=== PATIENT | female | born 1945 | race Caucasian/White ===

== ENCOUNTER → 2016-04-12 | Outpatient (CLI) | payer BC ==
[~2016-04-12] MED LIST: ATOR-26 PO; BALS1CAP2 PO; BUPR-267 PO; CALCTAB5 PO; CHOL100010 PO; CYAN100020 PO; HYDR25TA4 PO; LEVO75TA5 PO; LISI20TA3 PO; LISI40TA PO; METF1000 PO; METO25TA3 PO; MULT-506 PO; POTA10TA PO; VITACAP37 PO
[2016-04-12 17:29] LABS: BASO % 0.3 %; BASO ABS # 0.04 K/uL (0-0.2); COMPLETE YES; HEMATOCRIT 39.2 % (37-47); IG% 0.3 %; LYMPH % 22.7 %; LYMPH ABS # 2.93 K/uL (1.2-3.4); MEAN CELL VOLUME 88.3 fL (80-100); MEAN CORPUSCULAR HEMOGLOBIN 29.1 pg (25-34); MEAN CORPUSCULAR HGB CONC 32.9 g/dl (32-36); MEAN PLATELET VOLUME 10.6 fL (7.4-10.4); MONO % 5.4 %; NEUT % 70.3 %; PLATELET COUNT 340 K/uL (130-400); RED BLOOD COUNT 4.44 M/uL (4.2-5.4); WHITE BLOOD COUNT 12.89 K/uL (4.8-10.8)
[2016-04-12 18:01] LABS: ALT/SGPT 22 U/L (12-78); BLOOD UREA NITROGEN 12 mg/dl (7-18); CARBON DIOXIDE 29 mmol/L (21-32); CHLORIDE 100 mmol/L (98-107); CREATININE 0.71 mg/dl (0.60-1.20); GLUCOSE 140 mg/dl (70-99); POTASSIUM 3.3 mmol/L (3.5-5.1); SODIUM 140 mmol/L (136-145)
[2016-04-12 18:11] LABS: ALB/GLOB RATIO 0.9 (0.9-2); ALKALINE PHOSPHATASE 59 U/L (45-117); AST/SGOT 17 U/L (15-37)
[2016-04-13 06:11] LABS: ESTIMATED AVERAGE GLUCOSE 160 mg/dl; HA1C FLAG Normal (Normal)
--- NOTE | 2016-04-16 10:45 | CODING QUERY MEDICAL NECESSITY ---
SUPPORTING DIAGNOSIS NEEDED A supporting diagnosis is required for the test/procedure performed on this patient in order for us to be reimbursed by the patient's insurance. Please provide a supporting diagnosis for the following test/procedure listed below next to the test name along with your signature. *If there is no additional diagnosis for this patient that would support the following test/procedure please document that below next to the test/procedure. Test(s)/Procedure(s) that require a supporting diagnosis: DOS 04/12 * Hba1c DIAGNOSIS: Provider Signature: Date: Thank you Vera Larson Health Information Management Once completed, please kindly fax back to [phone] For questions please call [phone]
== END | disposition home or self-care (01) ==
LOC: C.LABBFT 12:50
PROVIDERS: ATTEND Internal Medicine
DX: E78.5 Hyperlipidemia, unspecified (principal); E11.9 Type 2 diabetes mellitus without complications

== ENCOUNTER → 2016-06-22 | Day surgery (SDC) | payer BC ==
[2016-06-08 11:14] VITALS: BMI 22.0
[~2016-06-22] VITALS: Ht 149.9 cm; Wt 50.0 kg
[~2016-06-22] MED LIST changes: +LIDOCAINE HCL 2% 2 ML VIAL (20MG/ML) ONE; -LISI40TA PO; +MIDAZOLAM HCL 1 MG/ML 2ML VIAL ONE; +ONDANSETRON INJ 2 MG/ML 2 ML VIAL ONE; +PROPOFOL IV EMULSION 10 MG/ML 20 ML VIAL IV ONE; +SODIUM CHLORIDE 0.9% 500ML 500 ML IV ONE
[2016-06-22 08:28] VITALS: Ht 149.9 cm; Wt 50.0 kg
--- NOTE | 2016-06-22 08:43 | Endo History and Physical ---
History & Physical Date of Service: Jun 22, 2016. Chief Complaint: Crohn's Disease Referring Physician: Dr. Cohn History of Present Illness 70 yo CF who presents for colonoscopy secondary to Crohn's Disease. Past Surgical History Hx Cardiac Surgery: No Hx Internal Defibrillator: No Hx Pacemaker: No Hx Abdominal Surgery: Yes (TUBAL LIGATION) Hx of Implantable Prosthesis: No Hx Post-Op Nausea and Vomiting: No Hx Cancer Surgery: No Hx Thoracic Surgery: No Hx Orthopedic: No Hx Urinary Tract Surgery: No Family History None Social History Smoking Status: Never Smoker Hx Substance Use: No Hx Alcohol Use: No Allergies Coded Allergies: No Known Allergies (Unverified , 06/22/16) Current Medications Reported Home Medications Medications Dose Route/Sig Max Daily Dose Days Date Category Vitamin D (Cholecalciferol) 1,000 Unit Tab 1 Tab PO QAM 06/08/16 Reported Vitamin B12 (Cyanocobalamin) 1,000 Mcg Tab 1 Tab PO QAM 06/08/16 Reported E-400 (Vitamin E) 400 Unit Cap 1 Cap PO QAM 06/08/16 Reported Multivitamin (Multivitamins) Tab 1 Tab PO QAM 06/08/16 Reported Toprol-Xl (Metoprolol Succinate) 25 Mg Tabcr 25 Mg PO QAM 06/08/16 Reported Levothyroxine Sodium 75 Mcg Tab 1 Tab PO QAM 90 06/08/16 Reported Prinivil (Lisinopril) 20 Mg Tab 40 Mg PO QAM 06/08/16 Reported K-Tabs (Potassium Chloride) 10 Meq Tab 1 Tab PO TID 06/08/16 Reported Hctz (Hydrochlorothiazide) 25 Mg Tab 25 Mg PO QAM 06/08/16 Reported Caltrate (Calcium) 600 Mg Tab 600 Mg PO BID 05/24/15 Reported Bupropion Hcl Er (Bupropion Hcl) 150 Mg Tab 150 Mg PO BID 11/04/12 Reported Glucophage (Metformin Hcl) 1,000 Mg Tab 1,000 Mg PO BID 11/04/12 Reported Colazal (Balsalazide Disodium) 750 Mg Cap 3 Cap PO TID 11/04/12 Reported Lipitor (Atorvastatin Calcium) 80 Mg Tab 80 Mg PO QAM 11/04/12 Reported Vital Signs Weight (Kilograms): 50.00 Height (Feet): 4 Height (Inches): 11 Physical Exam General Appearance: WD/WN, no apparent distress Respiratory/Chest: Auscultation: breath sounds normal Cardiovascular: Heart Auscultation: RRR Abdomen: Bowel Sounds: normal Inspection & Palpation: soft, non-distended, no tenderness, guarding & rebound Assessment and Plan Assessment: 70 yo CF who presents for colonoscopy secondary to Crohn's Disease. Plan: Proceed with colonoscopy.
--- NOTE | 2016-06-22 09:24 | GI REPORT ---
Procedure Date: 06/22/2016 8:52 AM Procedure: Colonoscopy Indications: Disease activity assessment of Crohn's disease of the colon Medicines: Monitored Anesthesia Care Complications: No immediate complications. Estimated Blood Loss: Estimated blood loss: none. Procedure: Pre-Anesthesia Assessment: - Prior to the procedure, a History and Physical was performed, and patient medications and allergies were reviewed. The patient's tolerance of previous anesthesia was also reviewed. The risks and benefits of the procedure and the sedation options and risks were discussed with the patient. All questions were answered, and informed consent was obtained. Prior Anticoagulants: The patient has taken no previous anticoagulant or antiplatelet agents. ASA Grade Assessment: II - A patient with mild systemic disease. After reviewing the risks and benefits, the patient was deemed in satisfactory condition to undergo the procedure. After I obtained informed consent, the scope was passed under direct vision. Throughout the procedure, the patient's blood pressure, pulse, and oxygen saturations were monitored continuously. The scope was introduced through the anus and advanced to the terminal ileum. The colonoscopy was performed without difficulty. The patient tolerated the procedure well. The quality of the bowel preparation was good. The terminal ileum, ileocecal valve, appendiceal orifice, and rectum were photographed. Findings: The terminal ileum appeared normal. Inflammation characterized by aphthous ulcerations was found in small patches surrounded by normal mucosa 10 cm apart. This was mild in severity. Biopsies were taken with a cold forceps for histology. Non-bleeding internal hemorrhoids were found during retroflexion. The hemorrhoids were small. Impression: - The examined portion of the ileum was normal. - Inflammation was found in the colon 10 cm apart secondary to Crohn's disease with colonic involvement. Biopsied. - Non-bleeding internal hemorrhoids. Recommendation: - Resume previous diet. - Continue present medications. - Repeat colonoscopy date to be determined after pending pathology results are reviewed for surveillance based on pathology results. - Return to GI clinic as previously scheduled. Alexander Sales DO 06/22/2016 9:24:10 AM This report has been signed electronically. Note Initiated On: 06/22/2016 8:52 AM I attest to the content of the Intraoperative Record and orders documented therein, exceptions below
[2016-06-22 09:51] VITALS: BP 170/87; PULSE 67; O2SAT 97
--- NOTE | 2016-06-22 09:56 | Anesthesiology Progress Note ---
Anesthesia Post Op Note Date & Time Jun 22, 2016 at 09:55 Vital Signs Pain Intensity: 0 Vital Signs Past 12 Hours Date Time Temp Pulse Resp B/P Pulse Ox O2 Delivery O2 Flow Rate FiO2 06/22/16 09:51 67 18 170/87 97 Room Air 06/22/16 09:36 68 18 137/70 96 Room Air 06/22/16 09:22 63 16 112/53 97 Room Air 06/22/16 08:51 36.6 70 20 185/98 98 Room Air Notes Mental Status: alert / awake / arousable, participated in evaluation Pt Amnestic to Procedure: Yes Nausea / Vomiting: adequately controlled Pain: adequately controlled Airway Patency, RR, SpO2: stable & adequate BP & HR: stable & adequate Hydration State: stable & adequate Anesthetic Complications: no major complications apparent
--- NOTE | 2016-06-22 10:01 | Discharge Instructions ---
Endoscopy Patient Instructions Date / Procedure(s) Performed Jun 22, 2016. Colonoscopy Allergy Information Coded Allergies: No Known Allergies (Unverified , 06/22/16) Discharge Date / Findings Jun 22, 2016. Crohn's Colitis with biopsies Medication Instructions OK to resume all medications today as prescribed Reported Home Medications Medications Dose Route/Sig Max Daily Dose Days Date Category Vitamin D (Cholecalciferol) 1,000 Unit Tab 1 Tab PO QAM 06/08/16 Reported Vitamin B12 (Cyanocobalamin) 1,000 Mcg Tab 1 Tab PO QAM 06/08/16 Reported E-400 (Vitamin E) 400 Unit Cap 1 Cap PO QAM 06/08/16 Reported Multivitamin (Multivitamins) Tab 1 Tab PO QAM 06/08/16 Reported Toprol-Xl (Metoprolol Succinate) 25 Mg Tabcr 25 Mg PO QAM 06/08/16 Reported Levothyroxine Sodium 75 Mcg Tab 1 Tab PO QAM 90 06/08/16 Reported Prinivil (Lisinopril) 20 Mg Tab 40 Mg PO QAM 06/08/16 Reported K-Tabs (Potassium Chloride) 10 Meq Tab 1 Tab PO TID 06/08/16 Reported Hctz (Hydrochlorothiazide) 25 Mg Tab 25 Mg PO QAM 06/08/16 Reported Caltrate (Calcium) 600 Mg Tab 600 Mg PO BID 05/24/15 Reported Bupropion Hcl Er (Bupropion Hcl) 150 Mg Tab 150 Mg PO BID 11/04/12 Reported Glucophage (Metformin Hcl) 1,000 Mg Tab 1,000 Mg PO BID 11/04/12 Reported Colazal (Balsalazide Disodium) 750 Mg Cap 3 Cap PO TID 11/04/12 Reported Lipitor (Atorvastatin Calcium) 80 Mg Tab 80 Mg PO QAM 11/04/12 Reported Provider Instructions Activity Restrictions - No exercising or heavy lifting for 24 hours. - Do not drink alcohol the day of the procedure. - Do not drive a car or operate machinery until the day after the procedure. - Do not make any important decisions or sign important papers in 24 hours after the procedure. Following Day: - Return to full activity which may include returning to work/school. Diet Start your diet with liquids and light foods (jello, soup, juice, toast). Then eat your usual diet if not nauseated. Treatment For Common After Affects For mild abdominal pain, bloating, or excessive gas: - Rest - Eat lightly - Lie on right side Follow-Up Information Follow-up with DR. MAHARAJ as scheduled Anesthesia Information What You Should Know You have had a procedure that required some medicine to reduce anxiety and discomfort. This treatment is called moderate sedation. After receiving the treatment, you may be sleepy, but you will be able to breathe on your own. The effects of the treatment may last for several hours. Follow these instructions along with Activity/Diet recommendations noted above: * Do NOT do anything where dizziness or clumsiness would be dangerous. * Rest quietly at home today, then you can be up and about tomorrow. * Have a responsible person stay with you the rest of today. * You may have had an I.V. today. If so, you may take the dressing off later today. Recommendations Call your doctor if: * Trouble breathing * Continuous vomiting for more than 24 hours * Temperature above 101 degrees * Severe abdominal pain or bloating * Pain not relieved by pain medicine ordered * There is increased drainage or redness from any incision * A large amount of rectal bleeding greater than 2-3 tablespoons. (If you had a polyp/s removed or have hemorrhoids, a small amount of blood - from the rectum is to be expected.) * You have any unanswered questions or concerns. IN THE EVENT OF A SERIOUS EMERGENCY, GO TO THE NEAREST EMERGENCY ROOM Your discharge instructions were prepared by provider Alexander Sales. Patient Instructions Signature Page Tammy Maciel Patient (or Guardian) Signature/Date: I have read and understand the instructions given to me by my caregivers. Caregiver/RN/Doctor Signature/Date: The above-named patient and/or guardian has received patient instructions on this date. + Original Patient Signature Page (only) stays with chart. Please make copy for patient.
== END | disposition home or self-care (01) ==
LOC: C.GI 08:20
PROVIDERS: ATTEND Internal Medicine
DX: K50.10 Crohn's disease of large intestine without complications (principal); K63.3 Ulcer of intestine; K64.8 Other hemorrhoids; Z98.51 Tubal ligation status

== ENCOUNTER → 2016-11-17 | Outpatient (CLI) | payer BC ==
[~2016-11-17] MED LIST changes: -LIDOCAINE HCL 2% 2 ML VIAL (20MG/ML) ONE; -MIDAZOLAM HCL 1 MG/ML 2ML VIAL ONE; -ONDANSETRON INJ 2 MG/ML 2 ML VIAL ONE; -PROPOFOL IV EMULSION 10 MG/ML 20 ML VIAL IV ONE; -SODIUM CHLORIDE 0.9% 500ML 500 ML IV ONE
[2016-11-17 16:39] LABS: BASO % 0.3 %; BASO ABS # 0.03 K/uL (0-0.2); COMPLETE YES; EOS % 1.3 %; HEMATOCRIT 43.1 % (37-47); IG% 0.1 %; LYMPH % 27.7 %; LYMPH ABS # 2.62 K/uL (1.2-3.4); MEAN CELL VOLUME 90.9 fL (80-100); MEAN CORPUSCULAR HEMOGLOBIN 28.9 pg (25-34); MEAN CORPUSCULAR HGB CONC 31.8 g/dl (32-36); MEAN PLATELET VOLUME 11.1 fL (7.4-10.4); MONO % 4.6 %; PLATELET COUNT 310 K/uL (130-400); RED BLOOD COUNT 4.74 M/uL (4.2-5.4); WHITE BLOOD COUNT 9.47 K/uL (4.8-10.8)
[2016-11-17 16:59] LABS: ALT/SGPT 24 U/L (12-78); BLOOD UREA NITROGEN 8 mg/dl (7-18); BUN/CREATININE RATIO 11.3 (10-20); CALCIUM 9.5 mg/dl (8.5-10.1); CARBON DIOXIDE 30 mmol/L (21-32); CHLORIDE 100 mmol/L (98-107); CHOLESTEROL 113 mg/dl (0-200); CREATININE 0.69 mg/dl (0.60-1.20); GLUCOSE 141 mg/dl (70-99); POTASSIUM 3.6 mmol/L (3.5-5.1); SODIUM 137 mmol/L (136-145)
[2016-11-17 17:08] LABS: ALKALINE PHOSPHATASE 67 U/L (45-117); AST/SGOT 23 U/L (15-37); CHOLESTEROL/HDL RATIO 2.4; HDL CHOLESTEROL 48 mg/dl; LDL CHOLESTEROL CALCULATED 30 mg/dl; THYROID STIMULATING HORMONE 0.187 uIu/ml (0.300-4.500); TRIGLYCERIDES 177 mg/dl (0-150); VERY LOW DENSITY LIPOPROT CALC 35 mg/dl
[2016-11-17 17:29] LABS: RATIO 21.2 mcg/mg (0-30.0)
[2016-11-18 05:47] LABS: ESTIMATED AVERAGE GLUCOSE 148 mg/dl; HA1C FLAG Normal (Normal)
== END | disposition home or self-care (01) ==
LOC: C.LABBFT 11:22
PROVIDERS: ATTEND Internal Medicine
DX: E11.9 Type 2 diabetes mellitus without complications (principal); E78.5 Hyperlipidemia, unspecified; I10 Essential (primary) hypertension; E03.9 Hypothyroidism, unspecified

== ENCOUNTER → 2016-11-26 | Outpatient (CLI) | payer BC ==
--- NOTE | 2016-11-29 13:10 | MAMMOGRAPHY REPORT ---
BILATERAL DIGITAL SCREENING MAMMOGRAM WITH CAD: 11/26/2016 CLINICAL HISTORY: Routine screening. Patient has no complaints. TECHNIQUE: Current study was also evaluated with a Computer Aided Detection (CAD) system. Bilateral CC and MLO views were obtained. COMPARISON: Comparison is made to exams dated: 11/26/2015 mammogram, 11/19/2014 mammogram, 07/24/2013 ma mmogram, 06/03/2011 mammogram, 06/06/2012 mammogram - [facility], and 12/10/2008. BREAST COMPOSITION: There are scattered areas of fibroglandular density in both breasts. FINDINGS: There is a nodular 5 mm focal asymmetry in the right central breast, for which spot compre ssion tomosynthesis views and possible breast ultrasound are recommended for further evaluation. The remainder of both breasts demonstrate no suspicious masses, calcifications, or areas of java software architect ural distortion. Scattered bilateral benign-appearing calcifications are again noted. IMPRESSION: ACR BI-RADS CATEGORY 0: INCOMPLETE EVALUATION: NEED ADDITIONAL IMAGING EVALUATION Right breast focal asymmetry, for which additional imaging evaluation is recommended. The patient wi ll be called to schedule an appointment. Approximately 10% of breast cancers are not detected with mammography. A negative mammographic report should not delay biopsy if a clinically suggestive mass is present. Marion Salazar M.D. /:11/26/2016 16:26:03 Book Retailer: Sarah Jones, [facility] letter sent: Addl Imaging 0 BI-RADS Code: ACR BI-RADS Category 0: Incomplete Evaluation: Need Additional Imaging Evaluation
== END | disposition home or self-care (01) ==
LOC: C.MAMM 09:58
PROVIDERS: ATTEND Internal Medicine
DX: Z12.31 Encounter for screening mammogram for malignant neoplasm of breast (principal); N64.89 Other specified disorders of breast

== ENCOUNTER → 2016-12-06 | Outpatient (CLI) | payer BC ==
--- NOTE | 2016-12-06 13:33 | MAMMOGRAPHY REPORT ---
UNILATERAL RIGHT DIGITAL DIAGNOSTIC MAMMOGRAM TOMOSYNTHESIS AND TARGETED RIGHT ULTRASOUND: 12/06/2016 CLINICAL HISTORY: 71-year-old woman called back from screening mammography for a focal asymmetry in t he central right breast. Patient has a frozen right shoulder and is unable to adequately position fo r ultrasound with arm extended above head. TECHNIQUE: Spot compression right CC and MLO 2-D and tomosynthesis images were obtained. COMPARISON: Comparison is made to exams dated: 11/26/2016 mammogram, 11/26/2015 mammogram, 11/19/2014 ma mmogram, 07/24/2013 mammogram, 06/06/2012 mammogram, and 05/27/2010 mammogram - [facility]ter. BREAST COMPOSITION: There are scattered areas of fibroglandular density in the right breast. FINDINGS: The spot compression 2-D and tomosynthesis images of the right breast demonstrate persiste nce of a partially circumscribed trilobed 3.7 x 5.3 x 3.9 mm mass in the central right breast. No as sociated architectural distortion or microcalcification. A few scattered benign coarse calcification s are present in the right breast. Targeted ultrasound was performed in the right breast. In the 11:00 periareolar axis, there is an ov al parallel circumscribed anechoic cyst measuring approximately 5.0 x 1.8 x 3.4 mm. No other discret e solid or cystic mass is identified. This cyst is thought to correlate with the increasingly promin ent focal mammographic asymmetry/mass. However, given slight differences in measurements with ultras ound comparing to mammogram, and difficulty of the patient to position for the exams, would recommend definitive characterization with ultrasound guided cyst aspiration and postprocedure mammography to ensure mammographicsonographic correlation. IMPRESSION: ACR BI-RADS CATEGORY 4: SUSPICIOUS, TARGETED ULTRASOUND ACR BI-RADS CATEGORY 4: SUSPICIO US 1. Ultrasound guided cyst aspiration with post-aspiration mammography is recommended in the 11:00 pe riareolar right breast. A cyst is identified on ultrasound, that may correlate with the increasingly prominent focal mammographic asymmetry, but definitive characterization is needed. These results and recommendations were discussed with the patient at the time of the exam. She tenta tively scheduled the procedure prior to leaving our department. Approximately 10% of breast cancers are not detected with mammography. A negative mammographic report should not delay biopsy if a clinically suggestive mass is present. Henrietta Mejia M.D. ay/:12/06/2016 09:47:08 Sheep Clipper: Sarah Cameron RT(R)(M), [facility] letter sent: Abnormal 4/5 BI-RADS Code: ACR BI-RADS Category 4: Suspicious Ultrasound BI-RADS: ACR BI-RADS Category 4: Suspici ous
== END | disposition home or self-care (01) ==
LOC: C.MAMM 08:40
PROVIDERS: ATTEND Internal Medicine
DX: N64.89 Other specified disorders of breast (principal); R92.2 Inconclusive mammogram

== ENCOUNTER → 2016-12-15 | Outpatient (CLI) | payer BC ==
--- NOTE | 2016-12-15 13:17 | MAMMOGRAPHY REPORT ---
UNILATERAL RIGHT DIGITAL DIAGNOSTIC MAMMOGRAM TOMOSYNTHESIS: 12/15/2016 CLINICAL HISTORY: Status post ultrasound guided cyst aspiration of a cystic mass in the 11:00 right b reast, thought to correlate with the mammographic finding. Please refer to the report from right breast ultrasound guided cyst aspiration performed at the same time for full detail. IMPRESSION: Please refer to the report from right breast ultrasound guided cyst aspiration performed at the same time for full detail. Approximately 10% of breast cancers are not detected with mammography. A negative mammographic report should not delay biopsy if a clinically suggestive mass is present. Henrietta Mejia M.D. ay/:12/15/2016 09:47:13 Ribbon Weaver: Josie HECTOR)(Roni), [facility] BI-RADS Code: n/a
--- NOTE | 2016-12-16 13:54 | MAMMOGRAPHY REPORT ---
ASPIRATION RIGHT BREAST: 12/15/2016 CLINICAL HISTORY: Oval anechoic cyst identified in the 11:00 periareolar right breast on ultrasound, which may possibly correlate with a newly visualized mammographic mass. Patient presents for cyst as piration and post-aspiration mammography to ensure mammographicsonographic correlation. COMPARISON: Comparison is made to exams dated: 12/06/2016 mammogram, 12/06/2016 ultrasound, 11/26/2016 mammogram, 11/26/2015 mammogram, 11/19/2014 mammogram, and 06/06/2012 mammogram - [facility] enter. PATIENT CONSENT: After explaining the risks, benefits and alternatives of the procedure to the patien t, informed consent was obtained verbally and in writing. Specific risks include: bleeding, infection and puncture of adjacent structure. A time out was preformed in the right breast was agreed as the s ite for cyst aspiration. PROCEDURE DESCRIPTION: The anechoic cystic appearing mass in the 11:00 right breast was identified. 1 % buffered lidocaine without epinephrine was administered subcutaneously and intraparenchymally as lo brittanie anesthesia. A 22 gauge needle was advanced to the site of the cyst. Aspiration was preformed and the cyst resolved completely. The fluid was clear and straw-colored, therefore discarded. The patie nt tolerated the procedure well and there was no immediate convocation. Postprocedure right CC and ML 2-D and tomosynthesis images were obtained. There is resolution of the mammographic mass in question within the right breast, confirming mammographicsonographic correlati on for this benign cyst. There is no mammographic evidence of malignancy in the right breast. Recom mend routine screening mammography in one year. IMPRESSION: ASPIRATION Status post aspiration to resolution of a small, 5 mm cyst in the 11:00 periareolar right breast, and subsequent resolution of the mammographic mass, confirming mammographic-sonographic correlation. Re commend routine screening in 1 year. These results and recommendations were discussed with the patient after the cyst aspiration performed on 12/15/2016. Henrietta Mejia M.D. ay/:12/15/2016 13:52:17 [employer] Systems: Josie HECTOR)(M), [facility]
== END | disposition home or self-care (01) ==
LOC: C.MAMM 08:54
PROVIDERS: ATTEND Internal Medicine
DX: N60.01 Solitary cyst of right breast (principal)

== ENCOUNTER → 2017-06-03 | Outpatient (CLI) | payer BC ==
[2017-06-03 16:55] LABS: HEMOGLOBIN 15.1 g/dL (12.0-16.0); MEAN CELL VOLUME 88.9 fL (80-100); MEAN CORPUSCULAR HEMOGLOBIN 30.5 pg (25-34); MEAN CORPUSCULAR HGB CONC 34.3 g/dl (32-36); PLATELET COUNT 338 K/uL (130-400); RED CELL DISTRIBUTION WIDTH CV 14.8 % (11.5-14.5); RED CELL DISTRIBUTION WIDTH SD 47.8 fL (36.4-46.3); WHITE BLOOD COUNT 12.78 K/uL (4.8-10.8)
[2017-06-03 17:16] LABS: ALBUMIN 4.1 gm/dl (3.4-5.0); ALT/SGPT 26 U/L (12-78); BLOOD UREA NITROGEN 13 mg/dl (7-18); CALCIUM 9.7 mg/dl (8.5-10.1); CARBON DIOXIDE 30 mmol/L (21-32); CHOLESTEROL 115 mg/dl (0-200); CREATININE 0.74 mg/dl (0.60-1.20); GLUCOSE 93 mg/dl (70-99); POTASSIUM 3.8 mmol/L (3.5-5.1); SODIUM 138 mmol/L (136-145)
[2017-06-03 17:27] LABS: ALKALINE PHOSPHATASE 81 U/L (45-117); AST/SGOT 15 U/L (15-37); LDL CHOLESTEROL CALCULATED 35 mg/dl; TOTAL PROTEIN 8.2 gm/dl (6.4-8.2)
[2017-06-04 07:39] LABS: HEMOGLOBIN A1C 7.1 % (4.5-5.6)
== END | disposition home or self-care (01) ==
LOC: C.LABBFT 14:04
PROVIDERS: ATTEND Internal Medicine
DX: E03.9 Hypothyroidism, unspecified (principal); E11.9 Type 2 diabetes mellitus without complications; E78.5 Hyperlipidemia, unspecified

== ENCOUNTER 2021-03-23 21:41 | Inpatient (IN) ==
[2021-03-23] MEDS ORDERED: ONDANSETRON INJ 2 MG/ML 2 ML VIAL IV STA ×2 (21:49→22:32)
[2021-03-23 22:19] LABS: Appearance Urine Clear (Clear); Bacteria Urine Automated Negative (Negative); Bilirubin Urine 1+ (Negative); Blood Urine Negative (Negative); Color Urine Dark Yellow; Epithelial Cell Urine Auto 20-30 /lpf (0-5); Glucose Urine UA Trace (Negative); Ketones Urine Negative (Negative); Leukocyte Esterase Urine 1+ (Negative); Nitrite Urine Negative (Negative); Protein Urine 2+ (Negative); RBC Urine Automated 0-4 /hpf (0-4); Specific Gravity Urine 1.024 (1.000-1.030); Urobilinogen Urine Negative (Negative); pH Urine 5.5 (4.5-7.5)
[2021-03-23 22:26] LABS: Hematocrit (blood only) 42.2 % (37-47); Hemoglobin 13.8 g/dL (12.0-16.0); Mean Corpuscular Hemoglobin 30.6 pg (25-34); Mean Corpuscular Hgb Conc 32.7 g/dL (32-36); Mean Corpuscular Volume 93.6 fL (80-100); Mean Platelet Volume 10.9 fL (7.4-10.4); Platelet Count 289 K/uL (130-400); RDW Coefficient of Variation 13.7 % (11.5-14.5); Red Blood Count 4.51 M/uL (4.2-5.4); White Blood Count 25.44 K/uL (4.8-10.8)
[2021-03-23] MEDS ORDERED: SODIUM CHLORIDE 0.9% 1000ML 1,000 ML IV ONE (22:32)
[2021-03-23 22:36] LABS: Albumin Level 3.9 gm/dl (3.4-5.0); BUN Creatinine Ratio 19.8 (10-20); Calcium 9.8 mg/dl (8.5-10.1); Creatinine Clr Calc Pharmacy 33.2 ml/min; Est GFR (African American) 61.4 ml/min; Potassium 3.3 mmol/L (3.5-5.1)
[2021-03-23 22:39] LABS: Albumin Globulin Ratio 0.9 (0.9-2); Globulin 4.2 gm/dl (2.5-4.0); Total Protein 8.1 gm/dl (6.4-8.2)
[2021-03-23 22:46] LABS: Bilirubin,Total 2.2 mg/dl (0.2-1)
--- NOTE | 2021-03-23 22:46 | Emergency Department Note ---
Impression & Plan Choledocholithiasis, Leukocytosis, Transaminitis, Elevated bilirubin ED Provider Note NAME: RUBIO RUGGIERO AGE: 75 SEX: F : 1945 ARRIVES VIA: Walk-In INFORMANT: Patient ED PROVIDER(S): Wilmer Koch DO CHIEF COMPLAINT: Abdominal pain nausea vomiting HPI: Patient is a 75-year-old female who presents to the ER with past medical history of Crohn's, hypothyroidism, diabetes, hypertension, hyperlipidemia who started having abdominal pain around 4 PM. Patient denies any headache or change in vision. No chest pain or shortness of breath. She notes that she is unable to keep anything down. She does have a sharp crampy pressure pain throughout her whole belly. Denies any dysuria, urgency, or frequency. No other exacerbating or remitting factors. Pain is a 9 out of 10 currently. ROS: See above HPI for pertinent positives & negatives. A total of 10 systems reviewed and were otherwise negative. PAST MEDICAL HISTORY:See Below PAST SURGICAL HISTORY:See Below FAMILY HISTORY:See Below SOCIAL HISTORY:See Below HOME MEDICATIONS:See Below ALLERGIES:See Below VITALS:See Below PHYSICAL EXAMINATION: GENERAL: Sitting up in bed, alert, well appearing, well nourished, no distress, non-toxic EYE EXAM: normal conjunctiva. PERRL and EOM's grossly intact. OROPHARYNX: no exudate, no erythema, lips, buccal mucosa, and tongue normal and mucous membranes are moist NECK: supple, no nuchal rigidity, no adenopathy, non-tender LUNGS: Clear to auscultation. Normal chest wall mechanics HEART: no murmurs, S1 normal and S2 normal ABDOMEN: abdomen soft, mid diffuse abdominal pain, normo-active bowel sounds, no masses, no rebound or guarding. UPPER EXTREMITIES: upper extremities are grossly normal. LOWER EXTREMITIES: No pitting edema. NEURO EXAM: Normal sensorium, cranial nerves II-XII grossly intact, normal speech, no gross weakness of arms, no gross weakness of legs. MEDICAL DECISION MAKING: Patient is a 75-year-old female with past medical history of diabetes, hypertension, hyperlipidemia, Schatzki's ring, and Crohn's for epigastric abdominal pain. IV was established blood was obtained. Labs show leukocytosis of 25,000. No significant anemia. BMP with a mild hypokalemia at 3.3. T bili was up at 2.2. AST at 633. ALT 250. Alk phos at 170. Lipase was normal. UA was clean. Covid was negative. CT abdomen pelvis shows choledocholithiasis. Patient was given IV fluids morphine Zofran as well as Zosyn. Patient was updated bedside. Discussed with Kaylin Ya for admission. Discussed with general surgery Noah recommends admission to medicine. Patient was updated bedside. Vomiting ceased with Zofran. Triage Nursing notes reviewed. Limited review of prior medical records performed Vital Signs: reviewed and remarkable for HTN Differential diagnosis: Differential diagnoses includes but is not limited to gastritis, peptic ulcer disease, GERD, gallbladder disease, pancreatitis, small bowel obstruction, acute coronary syndrome, pericarditis, ischemic bowel, irritable bowel disease, irritable bowel syndrome, appendicitis, diverticulitis, malignancy, hernia, urinary tract infection, torsion, perforation, trauma, infectious. ER treatment provided: See below Diagnostics interpreted by me: ECG: none Cardiac Monitoring: An order was placed for continuous cardiac monitoring. The monitor shows a rate of 72 with sinus rhythm. Laboratory studies: As stated above and show below. Imaging studies: CT abdomen pelvis showed choledocholithiasis Consultation(s): Discussed with Azael aZmora from general surgery who recommended admission to the hospital service Discussed with Kaylin Ya for admission Procedures: none Critical Care: None Past Med/Surg History Medical History Anxiety Depression Diabetes mellitus, type 2 Difficulty swallowing pills Hyperlipidemia Hypertension Hypothyroidism Osteoarthritis Schatzki's ring Ulcerative colitis Urinary leakage Surgical History H/O colonoscopy H/O tubal ligation History of bilateral cataract extraction History of tooth extraction Hx of tonsillectomy Family History Family/Other Crohn's disease Hypertension Mother Hypertension Brother Heart disease Stroke Myocardial infarction Other No family history of adverse response to anesthesia Denies family history of Ovarian cancer Prostate cancer Breast cancer Colorectal cancer Social History Smoking Status: Never smoker Second Hand Exposure: Yes (work environment); Hx Alcohol Use: No Hx Substance Use: No Preferred Language: Swazi Communication Ability: Effective Visual Impairment: No Limitations Hearing Ability: Use of Hearing Aid Casework Specialist Required: No Beliefs That Will Affect Care: None marital status: Current Living Situation: Alone Current Living Situation Comment: son works at the garage next door and checks on her daily current occupational status: retired current occupation: worked with [employer] Feels Safe at Home: Yes Childhood Exposure to Second-Hand Smoke: No Dental Care, Regularly: Yes Physical Activity Frequency: Does not Exercise Seatbelt Use: always Sunscreen Use: No Assistive Devices: Glasses Allergies Allergies Allergy/AdvReac Type Severity Reaction Status Date / Time lisinopril AdvReac Intermediate Cough Verified 03/24/21 00:14 Home Meds Home Medications Medication Instructions Recorded Confirmed calcium carbonate 600 mg calcium 600 mg PO QDD tab 11/29/18 03/24/21 (1,500 mg) tablet potassium gluconate 595 mg (99 mg) 99 mg PO QDD 09/12/19 03/24/21 tablet vitamin E 400 unit capsule 400 unit PO QDD 09/12/19 03/24/21 multivitamin 1 tab PO DAILY 03/23/21 03/23/21 Previous Rx's Medication Instructions Recorded pantoprazole 40 mg tablet,delayed 40 mg PO DAILY #90 tab 01/28/20 release (Protonix) losartan 100 mg tablet 100 mg PO DAILY #90 tab 06/11/20 metoprolol succinate 50 mg 50 mg PO QAM #90 tab 06/11/20 tablet,extended release 24 hr spironolactone 25 mg tablet 25 mg PO QAM #90 tab 06/11/20 levothyroxine 75 mcg tablet 75 mcg PO DAILY #90 tab 07/31/20 metoprolol succinate 25 mg 25 mg PO QAM #90 tab 07/31/20 tablet,extended release 24 hr atorvastatin 80 mg tablet 80 mg PO HS #90 tab 09/11/20 bupropion HCl 150 mg tablet,12 hr 150 mg PO BID #180 ea 09/11/20 sustained-release metformin 500 mg tablet 500 mg PO TID #270 tab 10/24/20 balsalazide 750 mg capsule 1,500 mg PO BID #360 cap 02/02/21 Results & Data (ED) Vital Signs Vital Signs - 24 hr 03/23/21 21:46 03/23/21 22:30 03/23/21 23:57 Temperature 36.6 C Temperature Source Temporal Artery Scan Pulse Rate 63 Pulse Rate [Finger] 72 77 Pulse Rhythm [Finger] Regular Regular Pulse Strength [Finger] Normal Normal Respiratory Rate 18 18 18 Respiratory Effort / Characteristics Non-Labored Spontaneous Non-Labored Spontaneous Respiratory Depth Normal Normal Normal Respiratory Pattern Regular Blood Pressure 174/82 H Blood Pressure [Right Arm] 188/92 H 160/76 H Blood Pressure Mean 112 Blood Pressure Mean [Right Arm] 124 104 Blood Pressure Position [Right Arm] Sitting Lying Pulse Oximetry 98 97 96 Oxygen Delivery Method Room Air Room Air Room Air Sepsis Recent Fever Within 48 Hours No Sepsis New/Unexplained Change in Mental Status N/A Sepsis Action Taken by Nursing No Action Required Laboratory Data Result diagrams: 03/23/21 21:55 03/23/21 21:55 Lab Results 03/23/21 03/23/21 03/23/21 Range/Units 21:55 21:55 22:00 WBC 25.44 H (4.8-10.8) K/uL RBC 4.51 (4.2-5.4) M/uL Hgb 13.8 (12.0-16.0) g/dL Hct 42.2 (37-47) % MCV 93.6 (80-100) fL MCH 30.6 (25-34) pg MCHC 32.7 (32-36) g/dL RDW Std Deviation 47.0 H (36.4-46.3) fL RDW Coeff of Kaylen 13.7 (11.5-14.5) % Plt Count 289 (130-400) K/uL MPV 10.9 H (7.4-10.4) fL Immature Gran % (Auto) 0.4 % Neut % (Auto) 89.5 % Lymph % (Auto) 7.1 % [place] % (Auto) 2.9 % Eos % (Auto) 0.0 % Baso % (Auto) 0.1 % Neut # (Auto) 22.76 H (1.4-6.5) K/uL Lymph # (Auto) 1.81 (1.2-3.4) K/uL [place] # (Auto) 0.73 H (0.11-0.59) K/uL Eos # (Auto) 0.01 (0-0.5) K/uL Baso # (Auto) 0.02 (0-0.2) K/uL Immature Gran # (Auto) 0.11 H (0.00-0.02) K/uL Sodium 135 L (136-145) mmol/L Potassium 3.3 L (3.5-5.1) mmol/L Chloride 99 (98-107) mmol/L Carbon Dioxide 28 (21-32) mmol/L Anion Gap 9.0 (3-11) BUN 20 H (7-18) mg/dl Creatinine 1.02 (0.6-1.2) mg/dl Est Cr Clr Drug Dosing 33.2 ml/min Est GFR ( Amer) 61.4 ml/min Est GFR (Non-Af Amer) 53.0 ml/min BUN/Creatinine Ratio 19.8 (10-20) Glucose 214 H (70-99) mg/dl Calcium 9.8 (8.5-10.1) mg/dl Total Bilirubin 2.2 H (0.2-1) mg/dl AST 633 H (15-37) U/L ALT 250 H (12-78) Alkaline Phosphatase 172 H D (45-117) U/L Total Protein 8.1 (6.4-8.2) gm/dl Albumin 3.9 (3.4-5.0) gm/dl Globulin 4.2 H (2.5-4.0) gm/dl Albumin/Globulin Ratio 0.9 (0.9-2) Lipase 200 (73-393) U/L Urine Color Dark Yellow Urine Appearance Clear (Clear) Urine pH 5.5 (4.5-7.5) Ur Specific [place] 1.024 (1.000-1.030) Urine Protein 2+ H (Negative) Urine Glucose (UA) Trace H (Negative) Urine Ketones Negative (Negative) Urine Blood Negative (Negative) Urine Nitrite Negative (Negative) Urine Bilirubin 1+ H (Negative) Urine Urobilinogen Negative (Negative) Ur Leukocyte Esterase 1+ H (Negative) Urine WBC (Auto) 1-5 (0-5) /hpf Urine RBC (Auto) 0-4 (0-4) /hpf U Hyaline Cast (Auto) 1-5 (0-5) /lpf U Epithel Cells (Auto) 20-30 H (0-5) /lpf Urine Bacteria (Auto) Negative (Negative) SARS-CoV-2, RNA, NAAT (NEGATIVE) 03/24/21 Range/Units 00:00 WBC (4.8-10.8) K/uL RBC (4.2-5.4) M/uL Hgb (12.0-16.0) g/dL Hct (37-47) % MCV (80-100) fL MCH (25-34) pg MCHC (32-36) g/dL RDW Std Deviation (36.4-46.3) fL RDW Coeff of Kaylen (11.5-14.5) % Plt Count (130-400) K/uL MPV (7.4-10.4) fL Immature Gran % (Auto) % Neut % (Auto) % Lymph % (Auto) % [place] % (Auto) % Eos % (Auto) % Baso % (Auto) % Neut # (Auto) (1.4-6.5) K/uL Lymph # (Auto) (1.2-3.4) K/uL [place] # (Auto) (0.11-0.59) K/uL Eos # (Auto) (0-0.5) K/uL Baso # (Auto) (0-0.2) K/uL Immature Gran # (Auto) (0.00-0.02) K/uL Sodium (136-145) mmol/L Potassium (3.5-5.1) mmol/L Chloride (98-107) mmol/L Carbon Dioxide (21-32) mmol/L Anion Gap (3-11) BUN (7-18) mg/dl Creatinine (0.6-1.2) mg/dl Est Cr Clr Drug Dosing ml/min Est GFR ( Amer) ml/min Est GFR (Non-Af Amer) ml/min BUN/Creatinine Ratio (10-20) Glucose (70-99) mg/dl Calcium (8.5-10.1) mg/dl Total Bilirubin (0.2-1) mg/dl AST (15-37) U/L ALT (12-78) Alkaline Phosphatase (45-117) U/L Total Protein (6.4-8.2) gm/dl Albumin (3.4-5.0) gm/dl Globulin (2.5-4.0) gm/dl Albumin/Globulin Ratio (0.9-2) Lipase (73-393) U/L Urine Color Urine Appearance (Clear) Urine pH (4.5-7.5) Ur Specific [place] (1.000-1.030) Urine Protein (Negative) Urine Glucose (UA) (Negative) Urine Ketones (Negative) Urine Blood (Negative) Urine Nitrite (Negative) Urine Bilirubin (Negative) Urine Urobilinogen (Negative) Ur Leukocyte Esterase (Negative) Urine WBC (Auto) (0-5) /hpf Urine RBC (Auto) (0-4) /hpf U Hyaline Cast (Auto) (0-5) /lpf U Epithel Cells (Auto) (0-5) /lpf Urine Bacteria (Auto) (Negative) SARS-CoV-2, RNA, NAAT NEGATIVE (NEGATIVE) Administered Medications Discontinued Medications Sodium Chloride (Nss 1000ml) 1,000 mls @ 999 mls/hr IV .Q1H1M ONE Stop: 03/23/21 23:32 Last Admin: 03/23/21 22:35 Dose: 999 mls/hr Documented by: [id number] Piperacillin Sod/Tazobactam Sod (Zosyn) 4.5 gm in 120 mls @ 240 mls/hr IV NOW ONE Stop: 03/23/21 23:43 Last Admin: 03/23/21 23:54 Dose: 240 mls/hr Documented by: [id number] Ioversol (Optiray 320 100ml) 94 ml IV ONCE ONE Stop: 03/23/21 22:54 Last Admin: 03/23/21 22:54 Dose: 94 ml Documented by: [id number] Ondansetron HCl (Ondansetron Inj 2 Mg/Ml 2 Ml Vial) 4 mg IV NOW STA Stop: 03/23/21 21:50 Last Admin: 03/23/21 23:54 Dose: Not Given Documented by: [id number] Ondansetron HCl (Ondansetron Inj 2 Mg/Ml 2 Ml Vial) 4 mg IV NOW STA Stop: 03/23/21 22:33 Last Admin: 03/23/21 22:39 Dose: 4 mg Documented by: [id number] Imaging Data Radiologist's Impression: Abdomen/Pelvis CT 03/23/21 22:32 CT abd pelvis IV con only CLINICAL HISTORY: abd pain n/v COMPARISON STUDY: 01/22/2019 CT DOSE: 361.46 mGy.cm TECHNIQUE: Standard CT of the Abdomen and Pelvis was performed with IV contrast. A dose lowering technique was utilized adhering to the principles of ALARA. Contrast Volume: Optiray 320, 94 ml. The patient did not receive oral contra st. FINDINGS: Lung base: The lung bases are clear. There is a large calcified granuloma at the right lung base. Abdominal cavity: There is no evidence for abdominal mass, adenopathy or ascites. Liver: There is homogeneous attenuation of the liver parenchyma. There is no evidence for enhancing mass lesion. However, there has been interval development of marked intrahepatic biliary duct dilatation.. Calcified granuloma are again seen. Spleen: There is homogeneous attenuation of the splenic parenchyma. There is no enhancing mass lesion. Calcified granuloma are again seen. Pancreas: There is homogeneous attenuation of the pancreatic parenchyma. There is no evidence for mass lesion or peripancreatic fluid collection. Gall Bladder: The gallbladder is distended with thickening of the gallbladder wall. This also cholelithiasis present. The common bile duct is dilated measuring up to 11 mm. The major differential diagnosis is choledocholithiasis versus a mass at the ampulla. Follow-up MRCP is recommended. Adrenal glands: The adrenal glands are normal in size and attenuation. There is no evidence for enhancing mass lesion. Kidneys: There is homogeneous attenuation of the renal parenchyma bilaterally. There is no evidence for renal calculus or hydronephrosis. There is no evidence for enhancing mass. Left renal cyst is again seen. Bowel: The bowel loops are normally placed within the abdomen and pelvis without evidence for dilatation or obstruction. There is no evidence for mass lesion. There are no inflammatory changes present. There is no evidence for free air. Bladder: The bladder is within normal limits with no evidence for focal mass, calculus or diverticulum. : There is no evidence for pelvic mass or adenopathy. There is no evidence for pelvic ascites. There is a calcified fibroid uterus. Vasculature: There is no evidence for aneurysmal dilatation of the abdominal aorta. Atherosclerotic calcification is present. Osseous structures: There is no acute osseous pathology. Degenerative changes are seen throughout the spine. IMPRESSION: 1. Interval development of dilatation of the common bile duct and intrahepatic biliary duct radicles. The major differential diagnosis is that of choledocholithiasis versus a mass at the head of the pancreas/ampulla. Follow-up MRCP is recommended. 2. Distention of the gallbladder with thickening of the gallbladder wall and cholelithiasis. 3. Additional nonacute findings are delineated above. ACT 112: Positive. There are findings on this exam that require communication between the performing entity and the patient following Patient Test Result Information Act ([place] Act 112) guidelines. Electronically signed by: Ryan Crenshaw M.D. 03/23/2021 11:10 PM Discharge Plan Visit Data Chief Complaint: Abdominal Pain Stated Complaint: ABD PAIN, VOMITING ED Provider: Wilmer Koch Discharge Problem: Choledocholithiasis, Leukocytosis, Transaminitis, Elevated bilirubin Forms Stand Alone Forms: My [facility] [place] [employer] Prescriptions Prescriptions: No Action losartan 100 mg tablet 100 mg PO DAILY Qty: 90 RF: 3 metoprolol succinate 50 mg tablet extended release 24 hr 50 mg PO QAM Qty: 90 RF: 3 spironolactone 25 mg tablet 25 mg PO QAM Qty: 90 RF: 3 levothyroxine 75 mcg tablet 75 mcg PO DAILY Qty: 90 RF: 3 metoprolol succinate 25 mg tablet extended release 24 hr 25 mg PO QAM Qty: 90 RF: 3 bupropion HCl 150 mg tablet sustained-release 12 hr 150 mg PO BID Qty: 180 RF: 3 atorvastatin 80 mg tablet 80 mg PO HS Qty: 90 RF: 3 balsalazide 750 mg capsule 1,500 mg PO BID Qty: 360 RF: 1 metformin 500 mg tablet 500 mg PO TID Qty: 270 RF: 3 calcium carbonate 600 mg calcium (1,500 mg) tablet 600 mg PO QDD RF: 0 pantoprazole [Protonix] 40 mg tablet,delayed release (DR/EC) 40 mg PO DAILY Qty: 90 RF: 3 vitamin E 400 unit Capsule 400 unit PO QDD RF: 0 potassium gluconate 595 mg (99 mg) Tablet 99 mg PO QDD RF: 0 multivitamin [Multiple Vitamin] Tablet 1 tab PO DAILY RF: 0 Referrals Referrals: Ryan Cohn III, MD [Primary Care Provider] - Discharge Problem: Leukocytosis Qualifiers: Leukocytosis type: unspecified Qualified Code(s): D72.829 - Elevated white blood cell count, unspecified
[2021-03-23 22:51] LABS: Basophils # (auto) 0.02 K/uL (0-0.2); Basophils % (auto) 0.1 %; Eosinophils # (auto) 0.01 K/uL (0-0.5); Immature Granulocytes # (auto) 0.11 K/uL (0.00-0.02); Immature Granulocytes % (auto) 0.4 %; Lymphocytes # (auto) 1.81 K/uL (1.2-3.4); Lymphocytes % (auto) 7.1 %; Monocytes # (auto) 0.73 K/uL (0.11-0.59); Monocytes % (auto) 2.9 %; Neutrophils # (auto) 22.76 K/uL (1.4-6.5); Neutrophils % (auto) 89.5 %
[2021-03-23] MEDS ORDERED: OPTIRAY 320 100ml IV ONE (22:53)
--- NOTE | 2021-03-23 23:12 | CT Scan Report ---
CT abd pelvis IV con only CLINICAL HISTORY: abd pain n/v COMPARISON STUDY: 01/22/2019 CT DOSE: 361.46 mGy.cm TECHNIQUE: Standard CT of the Abdomen and Pelvis was performed with IV contrast. A dose lowering jeny hnique was utilized adhering to the principles of ALARA. Contrast Volume: Optiray 320, 94 ml. The patient did not receive oral contrast. FINDINGS: Lung base: The lung bases are clear. There is a large calcified granuloma at the right lung base. Abdominal cavity: There is no evidence for abdominal mass, adenopathy or ascites. Liver: There is homogeneous attenuation of the liver parenchyma. There is no evidence for enhancing m ass lesion. However, there has been interval development of marked intrahepatic biliary duct dilatati on.. Calcified granuloma are again seen. Spleen: There is homogeneous attenuation of the splenic parenchyma. There is no enhancing mass lesion . Calcified granuloma are again seen. Pancreas: There is homogeneous attenuation of the pancreatic parenchyma. There is no evidence for mas s lesion or peripancreatic fluid collection. Gall Bladder: The gallbladder is distended with thickening of the gallbladder wall. This also choleli thiasis present. The common bile duct is dilated measuring up to 11 mm. The major differential diagno sis is choledocholithiasis versus a mass at the ampulla. Follow-up MRCP is recommended. Adrenal glands: The adrenal glands are normal in size and attenuation. There is no evidence for enhan cing mass lesion. Kidneys: There is homogeneous attenuation of the renal parenchyma bilaterally. There is no evidence f or renal calculus or hydronephrosis. There is no evidence for enhancing mass. Left renal cyst is agai n seen. Bowel: The bowel loops are normally placed within the abdomen and pelvis without evidence for dilatat ion or obstruction. There is no evidence for mass lesion. There are no inflammatory changes present. There is no evidence for free air. Bladder: The bladder is within normal limits with no evidence for focal mass, calculus or diverticulu m. : There is no evidence for pelvic mass or adenopathy. There is no evidence for pelvic ascites. Ther e is a calcified fibroid uterus. Vasculature: There is no evidence for aneurysmal dilatation of the abdominal aorta. Atherosclerotic c alcification is present. Osseous structures: There is no acute osseous pathology. Degenerative changes are seen throughout the spine. IMPRESSION: 1. Interval development of dilatation of the common bile duct and intrahepatic biliary duct radicles. The major differential diagnosis is that of choledocholithiasis versus a mass at the head of the brewster creas/ampulla. Follow-up MRCP is recommended. 2. Distention of the gallbladder with thickening of the gallbladder wall and cholelithiasis. 3. Additional nonacute findings are delineated above. ACT 112: Positive. There are findings on this exam that require communication between the performing entity and the patient following Patient Test Result [place] Act ([place] Act 112) guidelines. Electronically signed by: Ryan Crenshaw M.D. 03/23/2021 11:10 PM
[2021-03-23] MEDS ORDERED: PIPERACILL/TAZOBAC CONSULT ACTIVE PRN (23:14)
[2021-03-23] MEDS ORDERED: PIPERACILLIN/TAZOBACTAM 4.5 GM/120 ML BAG IV ONE (23:14)
--- NOTE | 2021-03-24 00:06 | History & Physical Report ---
Date of Service March 24, 2021 Assessment & Plan (1) Abdominal pain: Plan: 75yo female with history of HTN, HLP, DM and Ulcerative colitis presenting with epigastric/RUQ abdominal pain ongoing x 1 day. She is afebrile, HD stable. Labs are significant for leukocytosis with WBC=25, mixed cholestatic/hepatocellular LFTs wtih FC=486, Tbili=2.2, JQW=853 and QNB=134. CT of the abdomen with intrahepatic biliary ductal dilatation concerning for choledocholithiasis vs pancreatic head mass. -Admit to medical with telemetry -Check MRCP -Repeat LFTs and CBC in AM -Zosyn 3.375gm IV q 6 -Zofran PRN nausea -Morphine PRN pain -Bowel regimen PRN -GI consultation appreciated - patient has been seen by Dr. Sales in the past -General Surgery consultation appreciated re: possible cholecystectomy - patient has been seen by Dr. Alexis in the past -Keep NPO for possible ERCP in AM (2) Hypertension: Plan: Blood pressure mildly elevated at present, 177/90 -Pain control as above -Hold Losartan for now - resume after procedure -Continue metoprolol -Hold spironolactone for now (3) Hyperlipemia: Plan: Chronic -Hold Atorvastatin for now (4) Hypothyroidism: Plan: Chronic -Continue Synthroid 75mcg po daily (5) Diabetes type 2, controlled: Plan: Chronic. Elevated blood sugar presently at 214. Fairly well controlled with [id number] on 09/18/20 -Hold Metformin -Lantus 3u BID and ISS - patient insulin naive, NPO -Goal blood sugar 100 - 140 (6) Depression: Plan: Chronic -Continue Bupropion 150mg po BID (7) Esophageal reflux: Plan: Chronic -Continue Protonix 40mg po daily (8) Ulcerative colitis: Plan: Chronic -Hold Balsalazide for now Plan: F/E/N - 1/2NSS + 20meq KCL at 100mL/hr x 2 liters, repeat chemistry in AM, NPO for now Ppx - SCDs Code - Full per discussion with patient Dispo -Admit to medical with telemetry History of Present Illness Chief Complaint: Abdominal pain Primary Care Provider: Ryan Cohn MD Tammy Janell is a 75yo female with history of DM, HTN, HLP, UC presenting with abdominal pain. Patient developed periumbilical abdominal pain earlier today. She reports severe squeezing/pressure pain, 9/10 in severity, constant, located in periumbilical and epigastric region. She has some associated nausea with two episodes of non-bloody/non-bilious emesis. She denies fever, chills, chest pain, cough, SOB, diarrhea. Patient has known history of gallstones which have caused no issue until now. She was evaluated in the past by surgery for possible cholecystectomy. No additional complaints at this time. In the ER patient afebrile, HD stable, NAD ER Course: Zosyn, Zofran, NSS Allergies Allergy/AdvReac Type Severity Reaction Status Date / Time lisinopril AdvReac Intermediate Cough Verified 03/24/21 00:14 Home Medications Medication Instructions Recorded Confirmed Type calcium carbonate 600 mg calcium 600 mg PO QDD tab 11/29/18 03/24/21 History (1,500 mg) tablet potassium gluconate 595 mg (99 mg) 99 mg PO QDD 09/12/19 03/24/21 History tablet vitamin E 400 unit capsule 400 unit PO QDD 09/12/19 03/24/21 History pantoprazole 40 mg tablet,delayed 40 mg PO DAILY #90 tab 01/28/20 03/24/21 Rx release (Protonix) losartan 100 mg tablet 100 mg PO DAILY #90 tab 06/11/20 03/24/21 Rx metoprolol succinate 50 mg 50 mg PO QAM #90 tab 06/11/20 03/24/21 Rx tablet,extended release 24 hr spironolactone 25 mg tablet 25 mg PO QAM #90 tab 06/11/20 03/23/21 Rx levothyroxine 75 mcg tablet 75 mcg PO DAILY #90 tab 07/31/20 03/23/21 Rx metoprolol succinate 25 mg 25 mg PO QAM #90 tab 07/31/20 03/24/21 Rx tablet,extended release 24 hr atorvastatin 80 mg tablet 80 mg PO HS #90 tab 09/11/20 03/23/21 Rx bupropion HCl 150 mg tablet,12 hr 150 mg PO BID #180 ea 09/11/20 03/23/21 Rx sustained-release metformin 500 mg tablet 500 mg PO TID #270 tab 10/24/20 03/23/21 Rx balsalazide 750 mg capsule 1,500 mg PO BID #360 cap 02/02/21 03/23/21 Rx multivitamin 1 tab PO DAILY 03/23/21 03/23/21 History Past Med/Surg History Medical History (Updated 03/24/21 @ 03:23 by Arlene Ya DO) Anxiety Depression Diabetes mellitus, type 2 Difficulty swallowing pills reason for scheduled EGD Hyperlipidemia Hypertension Hypothyroidism Osteoarthritis Schatzki's ring Ulcerative colitis Urinary leakage Surgical History H/O colonoscopy H/O tubal ligation History of bilateral cataract extraction History of tooth extraction Hx of tonsillectomy Family History Family/Other Crohn's disease Hypertension Mother Hypertension Brother Heart disease Stroke Myocardial infarction Other No family history of adverse response to anesthesia Denies family history of Ovarian cancer Prostate cancer Breast cancer Colorectal cancer Social History Smoking Status: Never smoker Second Hand Exposure: Yes (work environment); Hx Alcohol Use: No Hx Substance Use: No Preferred Language: Djiboutian Communication Ability: Effective Visual Impairment: No Limitations Hearing Ability: Use of Hearing Aid Grinder Dresser Required: No Beliefs That Will Affect Care: None marital status: Current Living Situation: Alone Current Living Situation Comment: son works at the [employer] next door and checks on her daily current occupational status: retired current occupation: worked with [employer] Feels Safe at Home: Yes Childhood Exposure to Second-Hand Smoke: No Dental Care, Regularly: Yes Physical Activity Frequency: Does not Exercise Seatbelt Use: always Sunscreen Use: No Assistive Devices: Glasses Review of Systems Review of Systems: All systems reviewed & are unremarkable except as noted in HPI & below Physical Exam Physical Exam: General: patient resting comfortably, NAD, non-toxic in appearance, AA&O x 4 Skin: warm, dry, intact, no rashes or lesions HEENT: NC/AT, PERRL, EOMI, anicteric sclera, conjunctiva without injection, external ear normal to inspection and nontender, nares patent, moist mucus membranes, dentition intact, no oropharyngeal lesions, neck supple, trachea midline, no LAD, no thyromegaly, no JVD Heart: +S1/S2, regular, no m/r/g Lungs: equal air entry bilaterally, no rales/rhonchi/wheezes Abd: +BS, soft, ND, tender in epigastric region and RUQ with voluntary guarding, no masses/organomegaly/ascites Ext: warm, 2+ pulses in UE/LE bilaterally, no clubbing/cyanosis or edema Neuro: nonfocal, patient AA&O x 4, speech intact, no facial droop, moving all extremities on command with equal strength 5/5 Results & Data Results & Data ([facility]) Vital Signs (Past 12 Hours) Vital Signs Temp Pulse Pulse Resp BP BP Pulse Ox 03/23/21 23:57 77 18 160/76 H 96 03/23/21 22:30 72 18 188/92 H 97 03/23/21 21:46 36.6 C 63 18 174/82 H 98 Laboratory Results Laboratory Results WBC 25.44 K/uL (4.8-10.8) H 03/23/21 21:55 RBC 4.51 M/uL (4.2-5.4) 03/23/21 21:55 Hgb 13.8 g/dL (12.0-16.0) 03/23/21 21:55 Hct 42.2 % (37-47) 03/23/21 21:55 MCV 93.6 fL (80-100) 03/23/21 21:55 MCH 30.6 pg (25-34) 03/23/21 21:55 MCHC 32.7 g/dL (32-36) 03/23/21 21:55 RDW Std Deviation 47.0 fL (36.4-46.3) H 03/23/21 21:55 RDW Coeff of Kaylen 13.7 % (11.5-14.5) 03/23/21 21:55 Plt Count 289 K/uL (130-400) 03/23/21 21:55 MPV 10.9 fL (7.4-10.4) H 03/23/21 21:55 Immature Gran % (Auto) 0.4 % 03/23/21 21:55 Neut % (Auto) 89.5 % 03/23/21 21:55 Lymph % (Auto) 7.1 % 03/23/21 21:55 Morrison % (Auto) 2.9 % 03/23/21 21:55 Eos % (Auto) 0.0 % 03/23/21 21:55 Baso % (Auto) 0.1 % 03/23/21 21:55 Neut # (Auto) 22.76 K/uL (1.4-6.5) H 03/23/21 21:55 Lymph # (Auto) 1.81 K/uL (1.2-3.4) 03/23/21 21:55 Morrison # (Auto) 0.73 K/uL (0.11-0.59) H 03/23/21 21:55 Eos # (Auto) 0.01 K/uL (0-0.5) 03/23/21 21:55 Baso # (Auto) 0.02 K/uL (0-0.2) 03/23/21 21:55 Immature Gran # (Auto) 0.11 K/uL (0.00-0.02) H 03/23/21 21:55 Sodium 135 mmol/L (136-145) L 03/23/21 21:55 Potassium 3.3 mmol/L (3.5-5.1) L 03/23/21 21:55 Chloride 99 mmol/L (98-107) 03/23/21 21:55 Carbon Dioxide 28 mmol/L (21-32) 03/23/21 21:55 Anion Gap 9.0 (3-11) 03/23/21 21:55 BUN 20 mg/dl (7-18) H 03/23/21 21:55 Creatinine 1.02 mg/dl (0.6-1.2) 03/23/21 21:55 Est Cr Clr Drug Dosing 33.2 ml/min 03/23/21 21:55 Est GFR ( Amer) 61.4 ml/min 03/23/21 21:55 Est GFR (Non-Af Amer) 53.0 ml/min 03/23/21 21:55 BUN/Creatinine Ratio 19.8 (10-20) 03/23/21 21:55 Glucose 214 mg/dl (70-99) H 03/23/21 21:55 Calcium 9.8 mg/dl (8.5-10.1) 03/23/21 21:55 Magnesium 1.3 mg/dl (1.8-2.4) L 03/23/21 21:55 Total Bilirubin 2.2 mg/dl (0.2-1) H 03/23/21 21:55 AST 633 U/L (15-37) H 03/23/21 21:55 ALT 250 (12-78) H 03/23/21 21:55 Alkaline Phosphatase 172 U/L (45-117) H D 03/23/21 21:55 Total Protein 8.1 gm/dl (6.4-8.2) 03/23/21 21: Albumin 3.9 gm/dl (3.4-5.0) 03/23/21 21: Globulin 4.2 gm/dl (2.5-4.0) H 03/23/21 21: Albumin/Globulin Ratio 0.9 (0.9-2) 03/23/21 21: Lipase 200 U/L (73-393) 03/23/21 21:55 Urine Color Dark Yellow 03/23/21 22:00 Urine Appearance Clear (Clear) 03/23/21 22:00 Urine pH 5.5 (4.5-7.5) 03/23/21 22:00 Ur Specific [place] 1.024 (1.000-1.030) 03/23/21 22:00 Urine Protein 2+ (Negative) H 03/23/21 22:00 Urine Glucose (UA) Trace (Negative) H 03/23/21 22:00 Urine Ketones Negative (Negative) 03/23/21 22:00 Urine Blood Negative (Negative) 03/23/21 22:00 Urine Nitrite Negative (Negative) 03/23/21 22:00 Urine Bilirubin 1+ (Negative) H 03/23/21 22:00 Urine Urobilinogen Negative (Negative) 03/23/21 22:00 Ur Leukocyte Esterase 1+ (Negative) H 03/23/21 22:00 Urine WBC (Auto) 1-5 /hpf (0-5) 03/23/21 22:00 Urine RBC (Auto) 0-4 /hpf (0-4) 03/23/21 22:00 U Hyaline Cast (Auto) 1-5 /lpf (0-5) 03/23/21 22:00 U Epithel Cells (Auto) 20-30 /lpf (0-5) H 03/23/21 22:00 Urine Bacteria (Auto) Negative (Negative) 03/23/21 22:00 SARS-CoV-2, RNA, NAAT NEGATIVE (NEGATIVE) 03/24/21 00:00 Impressions Abdomen/Pelvis CT 03/23/21 22:32 CT abd pelvis IV con only CLINICAL HISTORY: abd pain n/v COMPARISON STUDY: 01/22/2019 CT DOSE: 361.46 mGy.cm TECHNIQUE: Standard CT of the Abdomen and Pelvis was performed with IV contrast. A dose lowering technique was utilized adhering to the principles of ALARA. Contrast Volume: Optiray 320, 94 ml. The patient did not receive oral contrast. FINDINGS: Lung base: The lung bases are clear. There is a large calcified granuloma at the right lung base. Abdominal cavity: There is no evidence for abdominal mass, adenopathy or ascites. Liver: There is homogeneous attenuation of the liver parenchyma. There is no evidence for enhancing mass lesion. However, there has been interval development of marked intrahepatic biliary duct dilatation.. Calcified granuloma are again seen. Spleen: There is homogeneous attenuation of the splenic parenchyma. There is no enhancing mass lesion. Calcified granuloma are again seen. Pancreas: There is homogeneous attenuation of the pancreatic parenchyma. There is no evidence for mass lesion or peripancreatic fluid collection. Gall Bladder: The gallbladder is distended with thickening of the gallbladder wall. This also cholelithiasis present. The common bile duct is dilated measuring up to 11 mm. The major differential diagnosis is choledocholithiasis versus a mass at the ampulla. Follow-up MRCP is recommended. Adrenal glands: The adrenal glands are normal in size and attenuation. There is no evidence for enhancing mass lesion. Kidneys: There is homogeneous attenuation of the renal parenchyma bilaterally. There is no evidence for renal calculus or hydronephrosis. There is no evidence for enhancing mass. Left renal cyst is again seen. Bowel: The bowel loops are normally placed within the abdomen and pelvis without evidence for dilatation or obstruction. There is no evidence for mass lesion. There are no inflammatory changes present. There is no evidence for free air. Bladder: The bladder is within normal limits with no evidence for focal mass, calculus or diverticulum. : There is no evidence for pelvic mass or adenopathy. There is no evidence for pelvic ascites. There is a calcified fibroid uterus. Vasculature: There is no evidence for aneurysmal dilatation of the abdominal aorta. Atherosclerotic calcification is present. Osseous structures: There is no acute osseous pathology. Degenerative changes are seen throughout the spine. IMPRESSION: 1. Interval development of dilatation of the common bile duct and intrahepatic biliary duct radicles. The major differential diagnosis is that of choledocholithiasis versus a mass at the head of the pancreas/ampulla. Follow-up MRCP is recommended. 2. Distention of the gallbladder with thickening of the gallbladder wall and cholelithiasis. 3. Additional nonacute findings are delineated above. ACT 112: Positive. There are findings on this exam that require communication between the performing entity and the patient following Patient Test Result Information Act ([place] Act 112) guidelines. Electronically signed by: Ryan Crenshaw M.D. 03/23/2021 11:10 PM Code Status & VTE Plan VTE Prophylaxis Plan VTE Prophylaxis will be ordered: Yes PG Care Time/CCT Total # of Minutes Spent Total Time Spent with Patient: Total time spent is greater than 50% in coordination of care (as documented) at patient's floor/unit and/or counseling patient: Coding Level of Care Code 11089 Initial Inpt Care Lvl 3 Diagnoses Hypertension I10 Hyperlipemia E78.5 Hypothyroidism E03.9 Diabetes type 2, controlled E11.9 Depression F32.9 Esophageal reflux K21.9 Abdominal pain R10.9 Ulcerative colitis K51.90
[2021-03-24] MEDS ORDERED: POLYETHYLENE (MIRALAX) 17 GM PACK PO PRN (02:19)
[2021-03-24] MEDS ORDERED: DOCUSATE SODIUM 100 MG CAP PO PRN (02:19)
[2021-03-24] MEDS ORDERED: MoRPHine SULFATE 4 MG/ML 1 ML CARP\\VIAL IV PRN (02:19)
[2021-03-24] MEDS ORDERED: GLUCAGON FOR INJ 1 MG VIAL SQ PRN (02:19)
[2021-03-24] MEDS ORDERED: PIPERACILL/TAZOBAC CONSULT ACTIVE PRN (02:19)
[2021-03-24] MEDS ORDERED: GLUCOSE 10 TABS/TUBE PO PRN (02:19)
[2021-03-24] MEDS ORDERED: CARBOHYDRATES FOR HYPOGLYCEMIA PO PRN (02:19)
[2021-03-24] MEDS ORDERED: GLUCOSE 40% GEL 15 GM TUBE PO PRN (02:19)
[2021-03-24] MEDS ORDERED: DEXTROSE 50% 50 ML SYRINGE IV PRN (02:19)
[2021-03-24] MEDS: MoRPHine SULFATE 2 MG/ML CARP IV PRN (02:48)
[2021-03-24 02:52] LABS: Magnesium 1.3 mg/dl (1.8-2.4)
[2021-03-24] MEDS: SODIUM CHLOR 0.45% + 20MEQ KCL 20 MEQ/1,000 ML BAG IV SCH ×2 (03:14→13:25)
[2021-03-24] MEDS: INSULIN ASPART PER UNIT SC SCH ×4 (03:21→18:08)
[2021-03-24 06:05] LABS: INR 1.1 (0.9-1.1); Prothrombin Time 10.8 Seconds (9.0-12.0)
[2021-03-24 06:34] LABS: Hematocrit (blood only) 40.1 % (37-47); Hemoglobin 13.3 g/dL (12.0-16.0); Mean Corpuscular Hemoglobin 30.6 pg (25-34); Mean Corpuscular Hgb Conc 33.2 g/dL (32-36); Mean Corpuscular Volume 92.4 fL (80-100); Mean Platelet Volume 10.8 fL (7.4-10.4); Platelet Count 267 K/uL (130-400); RDW Coefficient of Variation 13.7 % (11.5-14.5); RDW Standard Deviation 46.8 fL (36.4-46.3); Red Blood Count 4.34 M/uL (4.2-5.4); White Blood Count 32.76 K/uL (4.8-10.8)
[2021-03-24 06:36] LABS: Basophils # (auto) 0.01 K/uL (0-0.2); Immature Granulocytes # (auto) 0.12 K/uL (0.00-0.02); Immature Granulocytes % (auto) 0.4 %; Lymphocytes # (auto) 0.86 K/uL (1.2-3.4); Lymphocytes % (auto) 2.6 %; Monocytes # (auto) 1.18 K/uL (0.11-0.59); Monocytes % (auto) 3.6 %; Neutrophils # (auto) 30.59 K/uL (1.4-6.5); Neutrophils % (auto) 93.4 %; RBC Morphology Unremarkable
[2021-03-24] MEDS: PIPERACILLIN/TAZOBACTAM 3.375 GM in DEXTROSE 5% 100 ML IV SCH ×3 (06:37→22:37)
[2021-03-24 06:42] LABS: Albumin Level 3.6 gm/dl (3.4-5.0); BUN Creatinine Ratio 17.1 (10-20); Bilirubin Direct 2.2 mg/dl (0-0.2); Calcium 9.6 mg/dl (8.5-10.1); Creatinine Clr Calc Pharmacy 35.3 ml/min; Est GFR (African American) 66.1 ml/min; Potassium 3.8 mmol/L (3.5-5.1)
[2021-03-24 06:49] LABS: Bilirubin,Total 3.1 mg/dl (0.2-1); Total Protein 7.5 gm/dl (6.4-8.2)
[2021-03-24] MEDS: LEVOTHYROXINE SODIUM 75 MCG TABLET PO SCH (07:00)
[2021-03-24 07:33] LABS: Estimated Average Glucose 157 mg/dl; Hemoglobin A1C 7.1 % (4.5-5.6)
--- NOTE | 2021-03-24 07:56 | Magnetic Resonance Report ---
MR MRCP HISTORY: 75 years-old Female choledocholithiasis acute generalized abdominal pain with nausea COMPARISON: CT abdomen and pelvis 03/23/2021, 01/22/2019. TECHNIQUE: MRCP was obtained without the use of IV contrast utilizing institutional protocol. FINDINGS: Motion degraded exam. Cardiomegaly. 3.7 cm left renal cyst. There is trace nonspecific perinephric st randing. No abdominal aortic aneurysm or adenopathy. Unremarkable IVC. No bowel obstruction or bowel wall thickening identified. There is moderate intrahepatic and extrahepatic biliary ductal dilation with the common bile duct kristel suring up to 11 mm transversely. The gallbladder is distended measuring up to 12 cm in length with la yering cholelithiasis within the fundus. Questioned gallbladder wall thickening. No ascites. There is abrupt luminal narrowing of the distal common bile duct just proximal to the ampulla with suggested filling defects seen on image 12 of series 3. Normal caliber of the pancreatic duct. Moderate pancrea tic atrophy. IMPRESSION: 1. Motion degraded exam. 2. Distended gallbladder with cholelithiasis and equivocal gallbladder wall thickening. Findings shou ld be correlated with clinical presentation to exclude acute cholecystitis. 3. Moderate intrahepatic and extrahepatic biliary ductal dilation with questioned choledocholithiasis of the distal common bile duct, suboptimally evaluated secondary to the aforementioned motion artifa ct. These findings could be correlated with ERCP. ACT 112: Negative or not required by law. The above report was generated using voice recognition software. It may contain grammatical, syntax o r spelling errors. Electronically signed by: Blade Mayer M.D. 03/24/2021 7:54 AM
--- NOTE | 2021-03-24 09:13 | Gastrointestinal Consultation ---
Date of Consultation March 24, 2021 Assessment & Plan (1) Choledocholithiasis: (2) Abdominal pain: (3) Leukocytosis: (4) Transaminitis: Presentation including RUQ pain, elevated WBCs, chills, leukocytosis and imaging with Yaya dil are most suggestive of choledocholithiasis. [facility] Keep NPO Plan for ERCP by Dr. Maykel Maxwell this afternoon. Procedure was described in detail including possible complications and pt agrees to go forward. Supervising Physician Co-Signing Physician Notes I saw and evaluated the patient. She presented to the emergency room for evaluation of abdominal discomfort and subjective fever at home. She is found to have a significant elevation of her liver associated enzymes and white blood cell count. Imaging does indicate cholelithiasis and possible choledocholithiasis on MRCP. The patient's history is notable for ulcerative colitis for which she follows with the [facility] physician group. She denies having difficulty with swallowing pain with swallowing prior intra- abdominal surgeries. Physical examination Mild scleral icterus noted Right upper quadrant tender to palpation Impression: Patient with signs and symptoms most consistent with cholangitis. We will proceed with ERCP for biliary decompression today. I have discussed the risks of the procedure with the patient to include bleeding, infection, perforation, pain, failed biliary cannulation, pancreatitis and the need for follow-up studies. Recommendations Continue with broad-spectrum antibiotic coverage ERCP today for biliary decompression General surgery evaluation to discuss timing of cholecystectomy History of Present Illness Reason for Consultation: Choleocholithiasis Requesting Physician: Dr. Arlene Brar Attending Physician: Norma Roca MD History of Present Illness We were asked by [facility] to provide care for this pt, as it appears that she will need ERCP. Ms. Tammy Mehta is a 75 yr ld female pt of Dr. Cohn with a hx of HTN, HLP, DM and UC, managed by [facility] who presented to the ED yesterday because, at 4Pm yesterday afternoon, she experienced severe diffuse abd pain, nausea, vomiting was in touch with her PCP who recommended presenting to the ED. She has had chills, lightly pigmented BMs, but no measured fevers, no diarrhea, yellow skin or eyes. On arrival, WBCs elevated at 32, LFTs are elevated and increased today compared to arrival (T Bili2.2-> 3.1, D Bili 2.2, AST 633-> 1206, ALT 250->650, Alk Phos 172->209), CT with yaya dil and gallstones, gallbladder wall thickening. MRCP suggests possible distal CBD stone, with yaya dil. She is awake, alert,oriented. Pain persists but is improved. She is afebrile and normal/mildly hypertensive. She denies recent NSAID use. She is not on an antiplatelet/anticoagulant. She was started on Zosyn on arrival. Allergies Allergy/AdvReac Type Severity Reaction Status Date / Time lisinopril AdvReac Intermediate Cough Verified 03/24/21 00:14 Home Medications Medication Instructions Recorded Confirmed Type calcium carbonate 600 mg calcium 600 mg PO QDD tab 11/29/18 03/24/21 History (1,500 mg) tablet potassium gluconate 595 mg (99 mg) 99 mg PO QDD 09/12/19 03/24/21 History tablet vitamin E 400 unit capsule 400 unit PO QDD 09/12/19 03/24/21 History pantoprazole 40 mg tablet,delayed 40 mg PO DAILY #90 tab 01/28/20 03/24/21 Rx release (Protonix) losartan 100 mg tablet 100 mg PO DAILY #90 tab 06/11/20 03/24/21 Rx metoprolol succinate 50 mg 50 mg PO QAM #90 tab 06/11/20 03/24/21 Rx tablet,extended release 24 hr spironolactone 25 mg tablet 25 mg PO QAM #90 tab 06/11/20 03/23/21 Rx levothyroxine 75 mcg tablet 75 mcg PO DAILY #90 tab 07/31/20 03/23/21 Rx metoprolol succinate 25 mg 25 mg PO QAM #90 tab 07/31/20 03/24/21 Rx tablet,extended release 24 hr atorvastatin 80 mg tablet 80 mg PO HS #90 tab 09/11/20 03/23/21 Rx bupropion HCl 150 mg tablet,12 hr 150 mg PO BID #180 ea 09/11/20 03/23/21 Rx sustained-release metformin 500 mg tablet 500 mg PO TID #270 tab 10/24/20 03/23/21 Rx balsalazide 750 mg capsule 1,500 mg PO BID #360 cap 02/02/21 03/23/21 Rx multivitamin 1 tab PO DAILY 03/23/21 03/23/21 History Patient History Medical History (Updated 03/24/21 @ 03:23 by Arlene Ya DO) Anxiety Depression Diabetes mellitus, type 2 Difficulty swallowing pills reason for scheduled EGD Hyperlipidemia Hypertension Hypothyroidism Osteoarthritis Schatzki's ring Ulcerative colitis Urinary leakage Surgical History H/O colonoscopy H/O tubal ligation History of bilateral cataract extraction History of tooth extraction Hx of tonsillectomy Family History Family/Other Crohn's disease Hypertension Mother Hypertension Brother Heart disease Stroke Myocardial infarction Other No family history of adverse response to anesthesia Denies family history of Ovarian cancer Prostate cancer Breast cancer Colorectal cancer Social History Smoking Status: Never smoker Second Hand Exposure: Yes (work environment); Hx Alcohol Use: No Hx Substance Use: No Preferred Language: Yi Communication Ability: Effective Visual Impairment: No Limitations Hearing Ability: Use of Hearing Aid Device Sales Consultant Required: No Beliefs That Will Affect Care: None marital status: Current Living Situation: Alone Current Living Situation Comment: son works at the [employer] next door and checks on her daily current occupational status: retired current occupation: worked with [employer] Feels Safe at Home: Yes Safety Concerns: Feels Safe At This Time Childhood Exposure to Second-Hand Smoke: No Dental Care, Regularly: Yes Physical Activity Frequency: Does not Exercise Seatbelt Use: always Sunscreen Use: No Assistive Devices: Glasses Review of Systems Review of Systems: ROS: Gen: + chills, + weakness, No measured fevers, no weight loss Eyes: No eye redness, or pain, no recent vision changes Resp: No SOB, no cough Cardio: No palpitations/irregular beats, no chest pain GI:See HPI : Denies pain on urination Skin: No jaundice, itching or new rashes Physical Exam Constitutional: well developed, + ill appearing, + thin and cooperative Eyes: PERRL, conjunctivae normal, anicteric sclerae Respiratory: normal respiratory effort, lungs clear to auscultation Cardiovascular: RRR, no murmur, no edema Gastrointestinal (Abdomen): Percussion/Palpation: + abdomen tender (Moderat RUQ tenderness, mild tenderness elsewhere.) and abdomen soft; no guarding and abdomen not rigid hypoactive BS Skin: no rashes, warm and dry normal turgor Neurologic: PERRL, EOMI, accommodation nl, no face palsy, no dysarthria awake; not confused Psychiatric: A+Ox3, euthymic affect Results & Data ([facility]) Vital Signs (Past 12 Hours) Vital Signs Temp Pulse Pulse Resp BP BP Pulse Ox 03/24/21 06:18 80 18 143/76 H 93 03/24/21 02:20 76 18 177/90 H 96 03/24/21 02:01 78 18 177/90 H 96 03/23/21 23:57 77 18 160/76 H 96 03/23/21 22:30 72 18 188/92 H 97 03/23/21 21:46 36.6 C 63 18 174/82 H 98 Laboratory Results See HPI for LFTs Lipase is normal WBC 32, Hb 13, Hct 40, Plts 267, PT 10, INR 1.1, Na 134, K 3.8, Cl 98, CO2 27, BUN 16, Cr 0.96. Diagnostic Findings MRCP 03/24/21 1. Motion degraded exam. 2. Distended gallbladder with cholelithiasis and equivocal gallbladder wall thickening. Findings should be correlated with clinical presentation to exclude acute cholecystitis. 3. Moderate intrahepatic and extrahepatic biliary ductal dilation with questioned choledocholithiasis of the distal common bile duct, suboptimally evaluated secondary to the aforementioned motion artifact. These findings could be correlated with ERCP. CTAP w IV contrast on 03/23/21: 1. Interval development of dilatation of the common bile duct and intrahepatic biliary duct radicles. The major differential diagnosis is that of choledocholithiasis versus a mass at the head of the pancreas/ampulla. Follow-up MRCP is recommended. 2. Distention of the gallbladder with thickening of the gallbladder wall and cholelithiasis. 3. Additional nonacute findings are delineated above. (1) Leukocytosis Leukocytosis type: unspecified Qualified Code(s): D72.829 - Elevated white blood cell count, unspecified
[2021-03-24] MEDS: METOPROLOL SUCC 50MG EXT REL TAB PO SCH (09:46)
[2021-03-24] MEDS: buPROPion SR 150 MG TABCR PO SCH ×2 (09:46→22:01)
[2021-03-24] MEDS: METOPROLOL SUCC 25MG EXT REL TAB PO SCH (09:46)
[2021-03-24] MEDS: PANTOprazole 40 MG TAB PO SCH (09:46)
[2021-03-24] MEDS: INSULIN GLARGINE SOLOSTAR 100 UNITS/ML 3 ML PEN SC SCH ×2 (09:53→22:01)
--- NOTE | 2021-03-24 11:40 | History & Physical Bridge Note ---
Date of Service March 24, 2021 History & Physical Bridge Note I have examined the patient, reviewed the History & Physical and in the interval since the performance of the History & Physical I have noted the following changes of clinical significance: no changes noted Choledocholithiasis Patient evaluated in room A12B. Feeling better, pain controlled and had gotten morphine 2mg around 3am this morning No further nausea. Does have some dry mouth. Seen by GI this morning and plans for ERCP this afternoon. Discussed general surgery consulted --> had not yet been seen this morning, but possible need for cholecystectomy No fever, chills, chest pain, shortness of breath, dysuria at this time although she does note she may need to urinate in next 20-30 minutes and I alerted RN to check on her to assist in next 30min. Call marx if needed sooner. A/P CT of the abdomen with intrahepatic biliary ductal dilatation concerning for choledocholithiasis vs pancreatic head mass. GI on consult MRCP obtained --> IMPRESSION: * 1. Motion degraded exam. * 2. Distended gallbladder with cholelithiasis and equivocal gallbladder wall thickening. Findings should be correlated with clinical presentation to exclude acute cholecystitis. * 3. Moderate intrahepatic and extrahepatic biliary ductal dilation with questioned choledocholithiasis of the distal common bile duct, suboptimally evaluated secondary to the aforementioned motion artifact. These findings could be correlated with ERCP. WBC elevated to 32k. On Zosyn -- continue. No fevers. No bcx on admit IVF - NS + 20k @ 100cc/hr LFTs ==> TB up to 3.1 (direct 2.2), AST 1206, AST 650, ALP 209. Lipase wnl NPO for ERCP this afternoon, general surgery on consult for possible cholecystectomy -- seen by Dr. Alexis in the past Hypomagnesemia * Mag was low at 1.3, no replacement ordered --> 3gm . Monitor in AM EKG with NSR, PACs No CP/SOB reported CXR pending for pre-op DVT Proph -- SCDs for now, chemo proph on hold for possible need for surgery Monitor labs in AM
--- NOTE | 2021-03-24 12:02 | XRay Report ---
XR chest 1V portable CLINICAL HISTORY: pre-op. Evaluate cardiopulmonary status COMPARISON STUDY: 05/24/2015 TECHNIQUE: 1 view of the chest FINDINGS: Single frontal view of the chest demonstrates the cardiomediastinal silhouette to be within normal li mits. The lungs are clear of alveolar opacities. There is no evidence for pleural effusion. There is no evidence for vascular congestion. There is no acute osseous pathology. IMPRESSION: No acute cardiopulmonary disease. ACT 112: Negative or not required by law. Electronically signed by: Ryan Crenshaw M.D. 03/24/2021 12:01 PM
[2021-03-24] MEDS: MAGNESIUM SULFATE / D5W 1 GM/100 ML BAG IV SCH ×3 (12:31→20:02)
--- NOTE | 2021-03-24 12:43 | Surgery Consultation ---
Date of Consultation March 24, 2021 Assessment & Plan (1) Abdominal pain: (2) Choledocholithiasis: (3) Leukocytosis: (4) Transaminitis: (5) Elevated bilirubin: 75 year-old female with history of HTN, HLD, Hypothyroidism, DM II, Ulcerative colitis who presented to ED with 1 day history of severe generalized abdominal pain with nausea and chills. CT scan showing dilated biliary ducts with differential of choledocholithiasis vs pancreatic head mass. MRCP showing dilated intra and extrahepatic biliary ducts with questioned choledocholithiasis. Leukocytosis up to 32K and t. bili up to 3 with transaminitis. Likely cholangitis. Plan: Going for ERCP today Continue IV Zosyn Will await results of ERCP today however discussed likely need of cholecystectomy this admission to prevent further biliary obstruction. Discussed laparoscopic cholecystectomy and risks of procedure including bleeding, infection, injury to bile duct, bile leak, injury to surrounding organs/ tissues. Will add her to OR board for lap josh tomorrow Monitor labs in am if diet advanced to liquids after ERCP, NPO after midnight Dr. Ignacio was present during my examination and agrees with above. History of Present Illness Reason for Consultation: Choledocholithiasis, cholangitis Requesting Physician: KAILA Hearn Attending Physician: Norma Roca MD History of Present Illness Tammy is a 75 yo female with past medical history of HTN, Hyperlipidemia, hypothyroidism, DM II, Ulcerative colitis who presented to emergency department yesterday with onset of severe generalized abdominal pain with nausea and chills. She states that she has had intermittent abdominal pain for months but the pain increased in severity yesterday. Denies of any known fevers, chest pain, shortness of breath, diarrhea, constipation, blood in stools, difficulty urinating, dark colored urine, or blood in urine. She had CT scan of abdomen and pelvis which showed dilated CBD with concern for choledocholithiasis vs pancreatic head mass. MRCP showing dilated intrahepatic and extrahepatic biliary ducts with questioned choledocholithiasis. Her labs upon ER presentation showed WBC at 25K and elevated t. bili at 2 and transaminitis. Labs today show increase in leukocytosis to 32K and t. bili to 3 with increase in transaminitis. She is scheduled for ERCP today and has been placed on IV zosyn. States her pain is much better and nausea resolved. Pain mostly generalized. Allergies Allergy/AdvReac Type Severity Reaction Status Date / Time lisinopril AdvReac Intermediate Cough Verified 03/24/21 00:14 Home Medications Medication Instructions Recorded Confirmed Type calcium carbonate 600 mg calcium 600 mg PO QDD tab 11/29/18 03/24/21 History (1,500 mg) tablet potassium gluconate 595 mg (99 mg) 99 mg PO QDD 09/12/19 03/24/21 History tablet vitamin E 400 unit capsule 400 unit PO QDD 09/12/19 03/24/21 History pantoprazole 40 mg tablet,delayed 40 mg PO DAILY #90 tab 01/28/20 03/24/21 Rx release (Protonix) losartan 100 mg tablet 100 mg PO DAILY #90 tab 06/11/20 03/24/21 Rx metoprolol succinate 50 mg 50 mg PO QAM #90 tab 06/11/20 03/24/21 Rx tablet,extended release 24 hr spironolactone 25 mg tablet 25 mg PO QAM #90 tab 06/11/20 03/23/21 Rx levothyroxine 75 mcg tablet 75 mcg PO DAILY #90 tab 07/31/20 03/23/21 Rx metoprolol succinate 25 mg 25 mg PO QAM #90 tab 07/31/20 03/24/21 Rx tablet,extended release 24 hr atorvastatin 80 mg tablet 80 mg PO HS #90 tab 09/11/20 03/23/21 Rx bupropion HCl 150 mg tablet,12 hr 150 mg PO BID #180 ea 09/11/20 03/23/21 Rx sustained-release metformin 500 mg tablet 500 mg PO TID #270 tab 10/24/20 03/23/21 Rx balsalazide 750 mg capsule 1,500 mg PO BID #360 cap 02/02/21 03/23/21 Rx multivitamin 1 tab PO DAILY 03/23/21 03/23/21 History Patient History Medical History (Updated 03/24/21 @ 03:23 by Arlene Ya DO) Anxiety Depression Diabetes mellitus, type 2 Difficulty swallowing pills reason for scheduled EGD Hyperlipidemia Hypertension Hypothyroidism Osteoarthritis Schatzki's ring Ulcerative colitis Urinary leakage Surgical History H/O colonoscopy H/O tubal ligation History of bilateral cataract extraction History of tooth extraction Hx of tonsillectomy Family History Family/Other Crohn's disease Hypertension Mother Hypertension Brother Heart disease Stroke Myocardial infarction Other No family history of adverse response to anesthesia Denies family history of Ovarian cancer Prostate cancer Breast cancer Colorectal cancer Social History Smoking Status: Never smoker Second Hand Exposure: Yes (work environment); Hx Alcohol Use: No Hx Substance Use: No Preferred Language: French Communication Ability: Effective Visual Impairment: No Limitations Hearing Ability: Use of Hearing Aid Supervisor Irrigation Required: No Beliefs That Will Affect Care: None marital status: Current Living Situation: Alone Current Living Situation Comment: son works at the garage next door and checks on her daily current occupational status: retired current occupation: worked with [employer] Feels Safe at Home: Yes Safety Concerns: Feels Safe At This Time Childhood Exposure to Second-Hand Smoke: No Dental Care, Regularly: Yes Physical Activity Frequency: Does not Exercise Seatbelt Use: always Sunscreen Use: No Assistive Devices: None Review of Systems Review of Systems: All systems reviewed & are unremarkable except as noted in HPI & below Physical Exam Constitutional: well developed and well nourished; no acute distress and not ill appearing Neck: normal visual inspection and trachea midline Respiratory: normal respiratory effort, lungs clear to auscultation Cardiovascular: RRR, no murmur, no edema Gastrointestinal (Abdomen): Inspection/Auscultation: abdomen normal to inspection and normal bowel sounds; abdomen not distended and no abdominal surgical scar Percussion/Palpation: + abdomen tender (RUQ and epigastrium) and abdomen soft; no guarding, abdomen not rigid and no hernia Skin: no rashes, warm and dry no jaundice Psychiatric: Orientation: alert and oriented x 3 Results & Data ([facility]) Vital Signs (Past 12 Hours) Vital Signs Temp Pulse Pulse Resp BP Pulse Ox 03/24/21 11:03 82 20 117/62 97 03/24/21 09:58 36.6 C 82 20 119/57 L 96 03/24/21 09:36 81 03/24/21 06:18 80 18 143/76 H 93 03/24/21 02:20 76 18 177/90 H 96 03/24/21 02:01 78 18 177/90 H 96 Laboratory Results 03/24/21 03/24/21 03/24/21 Range/Units 09:41 05:18 05:18 WBC (4.8-10.8) K/uL RBC (4.2-5.4) M/uL Hgb (12.0-16.0) g/dL Hct (37-47) % MCV (80-100) fL MCH (25-34) pg MCHC (32-36) g/dL RDW Std Deviation (36.4-46.3) fL RDW Coeff of Kaylen (11.5-14.5) % Plt Count (130-400) K/uL MPV (7.4-10.4) fL Immature Gran % (Auto) % Neut % (Auto) % Lymph % (Auto) % [place] % (Auto) % Eos % (Auto) % Baso % (Auto) % Neut # (Auto) (1.4-6.5) K/uL Lymph # (Auto) (1.2-3.4) K/uL [place] # (Auto) (0.11-0.59) K/uL Eos # (Auto) (0-0.5) K/uL Baso # (Auto) (0-0.2) K/uL Immature Gran # (Auto) (0.00-0.02) K/uL RBC Morphology PT (9.0-12.0) Seconds INR (0.9-1.1) Sodium 134 L (136-145) mmol/L Potassium 3.8 D (3.5-5.1) mmol/L Chloride 98 (98-107) mmol/L Carbon Dioxide 27 (21-32) mmol/L Anion Gap 9.0 (3-11) BUN 16 (7-18) mg/dl Creatinine 0.96 (0.6-1.2) mg/dl Est Cr Clr Drug Dosing 35.3 ml/min Est GFR ( Amer) 66.1 ml/min Est GFR (Non-Af Amer) 57.0 ml/min BUN/Creatinine Ratio 17.1 (10-20) Glucose 188 H (70-99) mg/dl POC Glucose 139 H (70-99) mg/dl Estimat Average Glucose 157 mg/dl Hemoglobin A1c 7.1 H (4.5-5.6) % Calcium 9.6 (8.5-10.1) mg/dl Magnesium (1.8-2.4) mg/dl Total Bilirubin 3.1 H (0.2-1) mg/dl Direct Bilirubin 2.2 H (0-0.2) mg/dl AST 1206 H (15-37) U/L ALT 650 H (12-78) Alkaline Phosphatase 209 H (45-117) U/L Total Protein 7.5 (6.4-8.2) gm/dl Albumin 3.6 (3.4-5.0) gm/dl Globulin (2.5-4.0) gm/dl Albumin/Globulin Ratio (0.9-2) Lipase (73-393) U/L Urine Color Urine Appearance (Clear) Urine pH (4.5-7.5) Ur Specific [place] (1.000-1.030) Urine Protein (Negative) Urine Glucose (UA) (Negative) Urine Ketones (Negative) Urine Blood (Negative) Urine Nitrite (Negative) Urine Bilirubin (Negative) Urine Urobilinogen (Negative) Ur Leukocyte Esterase (Negative) Urine WBC (Auto) (0-5) /hpf Urine RBC (Auto) (0-4) /hpf U Hyaline Cast (Auto) (0-5) /lpf U Epithel Cells (Auto) (0-5) /lpf Urine Bacteria (Auto) (Negative) SARS-CoV-2, RNA, NAAT (NEGATIVE) 03/24/21 03/24/21 03/24/21 Range/Units 05:18 05:18 03:12 WBC 32.76 H* (4.8-10.8) K/uL RBC 4.34 (4.2-5.4) M/uL Hgb 13.3 (12.0-16.0) g/dL Hct 40.1 (37-47) % MCV 92.4 (80-100) fL MCH 30.6 (25-34) pg MCHC 33.2 (32-36) g/dL RDW Std Deviation 46.8 H (36.4-46.3) fL RDW Coeff of Kaylen 13.7 (11.5-14.5) % Plt Count 267 (130-400) K/uL MPV 10.8 H (7.4-10.4) fL Immature Gran % (Auto) 0.4 % Neut % (Auto) 93.4 % Lymph % (Auto) 2.6 % [place] % (Auto) 3.6 % Eos % (Auto) 0.0 % Baso % (Auto) 0.0 % Neut # (Auto) 30.59 H (1.4-6.5) K/uL Lymph # (Auto) 0.86 L (1.2-3.4) K/uL [place] # (Auto) 1.18 H (0.11-0.59) K/uL Eos # (Auto) 0.00 (0-0.5) K/uL Baso # (Auto) 0.01 (0-0.2) K/uL Immature Gran # (Auto) 0.12 H (0.00-0.02) K/uL RBC Morphology Unremarkable PT 10.8 (9.0-12.0) Seconds INR 1.1 (0.9-1.1) Sodium (136-145) mmol/L Potassium (3.5-5.1) mmol/L Chloride (98-107) mmol/L Carbon Dioxide (21-32) mmol/L Anion Gap (3-11) BUN (7-18) mg/dl Creatinine (0.6-1.2) mg/dl Est Cr Clr Drug Dosing ml/min Est GFR ( Amer) ml/min Est GFR (Non-Af Amer) ml/min BUN/Creatinine Ratio (10-20) Glucose (70-99) mg/dl POC Glucose 219 H (70-99) mg/dl Estimat Average Glucose mg/dl Hemoglobin A1c (4.5-5.6) % Calcium (8.5-10.1) mg/dl Magnesium (1.8-2.4) mg/dl Total Bilirubin (0.2-1) mg/dl Direct Bilirubin (0-0.2) mg/dl AST (15-37) U/L ALT (12-78) Alkaline Phosphatase (45-117) U/L Total Protein (6.4-8.2) gm/dl Albumin (3.4-5.0) gm/dl Globulin (2.5-4.0) gm/dl Albumin/Globulin Ratio (0.9-2) Lipase (73-393) U/L Urine Color Urine Appearance (Clear) Urine pH (4.5-7.5) Ur Specific [place] (1.000-1.030) Urine Protein (Negative) Urine Glucose (UA) (Negative) Urine Ketones (Negative) Urine Blood (Negative) Urine Nitrite (Negative) Urine Bilirubin (Negative) Urine Urobilinogen (Negative) Ur Leukocyte Esterase (Negative) Urine WBC (Auto) (0-5) /hpf Urine RBC (Auto) (0-4) /hpf U Hyaline Cast (Auto) (0-5) /lpf U Epithel Cells (Auto) (0-5) /lpf Urine Bacteria (Auto) (Negative) SARS-CoV-2, RNA, NAAT (NEGATIVE) 03/24/21 03/23/21 03/23/21 Range/Units 00:00 22:00 21:55 WBC (4.8-10.8) K/uL RBC (4.2-5.4) M/uL Hgb (12.0-16.0) g/dL Hct (37-47) % MCV (80-100) fL MCH (25-34) pg MCHC (32-36) g/dL RDW Std Deviation (36.4-46.3) fL RDW Coeff of Kaylen (11.5-14.5) % Plt Count (130-400) K/uL MPV (7.4-10.4) fL Immature Gran % (Auto) % Neut % (Auto) % Lymph % (Auto) % [place] % (Auto) % Eos % (Auto) % Baso % (Auto) % Neut # (Auto) (1.4-6.5) K/uL Lymph # (Auto) (1.2-3.4) K/uL [place] # (Auto) (0.11-0.59) K/uL Eos # (Auto) (0-0.5) K/uL Baso # (Auto) (0-0.2) K/uL Immature Gran # (Auto) (0.00-0.02) K/uL RBC Morphology PT (9.0-12.0) Seconds INR (0.9-1.1) Sodium 135 L (136-145) mmol/L Potassium 3.3 L (3.5-5.1) mmol/L Chloride 99 (98-107) mmol/L Carbon Dioxide 28 (21-32) mmol/L Anion Gap 9.0 (3-11) BUN 20 H (7-18) mg/dl Creatinine 1.02 (0.6-1.2) mg/dl Est Cr Clr Drug Dosing 33.2 ml/min Est GFR ( Amer) 61.4 ml/min Est GFR (Non-Af Amer) 53.0 ml/min BUN/Creatinine Ratio 19.8 (10-20) Glucose 214 H (70-99) mg/dl POC Glucose (70-99) mg/dl Estimat Average Glucose mg/dl Hemoglobin A1c (4.5-5.6) % Calcium 9.8 (8.5-10.1) mg/dl Magnesium 1.3 L (1.8-2.4) mg/dl Total Bilirubin 2.2 H (0.2-1) mg/dl Direct Bilirubin (0-0.2) mg/dl AST 633 H (15-37) U/L ALT 250 H (12-78) Alkaline Phosphatase 172 H D (45-117) U/L Total Protein 8.1 (6.4-8.2) gm/dl Albumin 3.9 (3.4-5.0) gm/dl Globulin 4.2 H (2.5-4.0) gm/dl Albumin/Globulin Ratio 0.9 (0.9-2) Lipase 200 (73-393) U/L Urine Color Dark Yellow Urine Appearance Clear (Clear) Urine pH 5.5 (4.5-7.5) Ur Specific [place] 1.024 (1.000-1.030) Urine Protein 2+ H (Negative) Urine Glucose (UA) Trace H (Negative) Urine Ketones Negative (Negative) Urine Blood Negative (Negative) Urine Nitrite Negative (Negative) Urine Bilirubin 1+ H (Negative) Urine Urobilinogen Negative (Negative) Ur Leukocyte Esterase 1+ H (Negative) Urine WBC (Auto) 1-5 (0-5) /hpf Urine RBC (Auto) 0-4 (0-4) /hpf U Hyaline Cast (Auto) 1-5 (0-5) /lpf U Epithel Cells (Auto) 20-30 H (0-5) /lpf Urine Bacteria (Auto) Negative (Negative) SARS-CoV-2, RNA, NAAT NEGATIVE (NEGATIVE) 03/23/21 Range/Units 21:55 WBC 25.44 H (4.8-10.8) K/uL RBC 4.51 (4.2-5.4) M/uL Hgb 13.8 (12.0-16.0) g/dL Hct 42.2 (37-47) % MCV 93.6 (80-100) fL MCH 30.6 (25-34) pg MCHC 32.7 (32-36) g/dL RDW Std Deviation 47.0 H (36.4-46.3) fL RDW Coeff of Kaylen 13.7 (11.5-14.5) % Plt Count 289 (130-400) K/uL MPV 10.9 H (7.4-10.4) fL Immature Gran % (Auto) 0.4 % Neut % (Auto) 89.5 % Lymph % (Auto) 7.1 % [place] % (Auto) 2.9 % Eos % (Auto) 0.0 % Baso % (Auto) 0.1 % Neut # (Auto) 22.76 H (1.4-6.5) K/uL Lymph # (Auto) 1.81 (1.2-3.4) K/uL [place] # (Auto) 0.73 H (0.11-0.59) K/uL Eos # (Auto) 0.01 (0-0.5) K/uL Baso # (Auto) 0.02 (0-0.2) K/uL Immature Gran # (Auto) 0.11 H (0.00-0.02) K/uL RBC Morphology PT (9.0-12.0) Seconds INR (0.9-1.1) Sodium (136-145) mmol/L Potassium (3.5-5.1) mmol/L Chloride (98-107) mmol/L Carbon Dioxide (21-32) mmol/L Anion Gap (3-11) BUN (7-18) mg/dl Creatinine (0.6-1.2) mg/dl Est Cr Clr Drug Dosing ml/min Est GFR ( Amer) ml/min Est GFR (Non-Af Amer) ml/min BUN/Creatinine Ratio (10-20) Glucose (70-99) mg/dl POC Glucose (70-99) mg/dl Estimat Average Glucose mg/dl Hemoglobin A1c (4.5-5.6) % Calcium (8.5-10.1) mg/dl Magnesium (1.8-2.4) mg/dl Total Bilirubin (0.2-1) mg/dl Direct Bilirubin (0-0.2) mg/dl AST (15-37) U/L ALT (12-78) Alkaline Phosphatase (45-117) U/L Total Protein (6.4-8.2) gm/dl Albumin (3.4-5.0) gm/dl Globulin (2.5-4.0) gm/dl Albumin/Globulin Ratio (0.9-2) Lipase (73-393) U/L Urine Color Urine Appearance (Clear) Urine pH (4.5-7.5) Ur Specific [place] (1.000-1.030) Urine Protein (Negative) Urine Glucose (UA) (Negative) Urine Ketones (Negative) Urine Blood (Negative) Urine Nitrite (Negative) Urine Bilirubin (Negative) Urine Urobilinogen (Negative) Ur Leukocyte Esterase (Negative) Urine WBC (Auto) (0-5) /hpf Urine RBC (Auto) (0-4) /hpf U Hyaline Cast (Auto) (0-5) /lpf U Epithel Cells (Auto) (0-5) /lpf Urine Bacteria (Auto) (Negative) SARS-CoV-2, RNA, NAAT (NEGATIVE) Diagnostic Findings CT abd pelvis IV con only CLINICAL HISTORY: abd pain n/v COMPARISON STUDY: 01/22/2019 CT DOSE: 361.46 mGy.cm TECHNIQUE: Standard CT of the Abdomen and Pelvis was performed with IV contrast. A dose lowering technique was utilized adhering to the principles of ALARA. Contrast Volume: Optiray 320, 94 ml. The patient did not receive oral contrast. FINDINGS: Lung base: The lung bases are clear. There is a large calcified granuloma at the right lung base. Abdominal cavity: There is no evidence for abdominal mass, adenopathy or ascites. Liver: There is homogeneous attenuation of the liver parenchyma. There is no evidence for enhancing mass lesion. However, there has been interval development of marked intrahepatic biliary duct dilatation.. Calcified granuloma are again seen. Spleen: There is homogeneous attenuation of the splenic parenchyma. There is no enhancing mass lesion. Calcified granuloma are again seen. Pancreas: There is homogeneous attenuation of the pancreatic parenchyma. There is no evidence for mass lesion or peripancreatic fluid collection. Gall Bladder: The gallbladder is distended with thickening of the gallbladder wall. This also cholelithiasis present. The common bile duct is dilated measuring up to 11 mm. The major differential diagnosis is choledocholithiasis versus a mass at the ampulla. Follow-up MRCP is recommended. Adrenal glands: The adrenal glands are normal in size and attenuation. There is no evidence for enhancing mass lesion. Kidneys: There is homogeneous attenuation of the renal parenchyma bilaterally. There is no evidence for renal calculus or hydronephrosis. There is no evidence for enhancing mass. Left renal cyst is again seen. Bowel: The bowel loops are normally placed within the abdomen and pelvis without evidence for dilatation or obstruction. There is no evidence for mass lesion. There are no inflammatory changes present. There is no evidence for free air. Bladder: The bladder is within normal limits with no evidence for focal mass, calculus or diverticulum. : There is no evidence for pelvic mass or adenopathy. There is no evidence for pelvic ascites. There is a calcified fibroid uterus. Vasculature: There is no evidence for aneurysmal dilatation of the abdominal aorta. Atherosclerotic calcification is present. Osseous structures: There is no acute osseous pathology. Degenerative changes are seen throughout the spine. IMPRESSION: 1. Interval development of dilatation of the common bile duct and intrahepatic biliary duct radicles. The major differential diagnosis is that of choled ocholithiasis versus a mass at the head of the pancreas/ampulla. Follow-up MRCP is recommended. 2. Distention of the gallbladder with thickening of the gallbladder wall and cholelithiasis. 3. Additional nonacute findings are delineated above. MR MRCP 03/24/2021 HISTORY: 75 years-old Female choledocholithiasis acute generalized abdominal pain with nausea COMPARISON: CT abdomen and pelvis 03/23/2021, 01/22/2019. TECHNIQUE: MRCP was obtained without the use of IV contrast utilizing institutional protocol. FINDINGS: Motion degraded exam. Cardiomegaly. 3.7 cm left renal cyst. There is trace nonspecific perinephric stranding. No abdominal aortic aneurysm or adenopathy. Unremarkable IVC. No bowel obstruction or bowel wall thickening identified. There is moderate intrahepatic and extrahepatic biliary ductal dilation with the common bile duct measuring up to 11 mm transversely. The gallbladder is distended measuring up to 12 cm in length with layering cholelithiasis within the fundus. Questioned gallbladder wall thickening. No ascites. There is abrupt luminal narrowing of the distal common bile duct just proximal to the ampulla with suggested filling defects seen on image 12 of series 3. Normal caliber of the pancreatic duct. Moderate pancreatic atrophy. IMPRESSION: 1. Motion degraded exam. 2. Distended gallbladder with cholelithiasis and equivocal gallbladder wall thickening. Findings should be correlated with clinical presentation to exclude acute cholecystitis. 3. Moderate intrahepatic and extrahepatic biliary ductal dilation with questioned choledocholithiasis of the distal common bile duct, suboptimally evaluated secondary to the aforementioned motion artifact. These findings could be correlated with ERCP. (1) Leukocytosis Leukocytosis type: unspecified Qualified Code(s): D72.829 - Elevated white blood cell count, unspecified
--- NOTE | 2021-03-24 12:47 | Electrocardiogram Report ---
Test Reason : Blood Pressure : / mmHG Vent. Rate : 081 BPM Atrial Rate : 081 BPM P-R Int : 180 ms QRS Dur : 086 ms QT Int : 392 ms P-R-T Axes : 037 015 023 degrees QTc Int : 455 ms Normal sinus rhythm Normal ECG When compared with ECG of 24-MAY-2015 19:18, Premature ventricular complexes are no longer Present Confirmed by Anthony Pham ([id number]) on 03/24/2021 12:47:11 PM Referred By: REFERRED SELF Confirmed By:Anthony Pham
[2021-03-24] MEDS ORDERED: fentaNYL citrate 100 MCG/2 ML VIAL ONE (13:52)
--- NOTE | 2021-03-24 14:53 | Anesthesiology Consultation ---
Date of Service March 24, 2021 Assessment & Plan Chart Review Chart Review: Acceptable Risk for Surgery and Patient NOT seen in Pre Admission Testing Consults Requested none ASA [id number] Proposed Anesthesia Anesthesia Type: General Risk / Benefits Reviewed With: PT / POA / Parent / Guardian, Accepts Plan and Informed Consent Obtained Additional Comments: covid test Neg. History Surgery Operation Date: 03/24/21 12:25 Proposed Procedures p Endoscopic Retrograde Cholangiopancreatogram - Maykel Maxwell DO Operation Date: 03/25/21 12:40 Proposed Procedures p Laparoscopic Cholecystectomy - Yovani Ignacio MD Height/Weight Height: 5 ft Weight: 50.2 kg Allergies Allergy/AdvReac Type Severity Reaction Status Date / Time lisinopril AdvReac Intermediate Cough Verified 03/24/21 00:14 Medications Home Medications Medication Instructions Recorded Confirmed Last Taken calcium carbonate 600 mg calcium 600 mg PO QDD tab 11/29/18 03/24/21 09/16/19 17:00 (1,500 mg) tablet potassium gluconate 595 mg (99 mg) 99 mg PO QDD 09/12/19 03/24/21 09/16/19 17:00 tablet vitamin E 400 unit capsule 400 unit PO QDD 09/12/19 03/24/21 09/16/19 17:00 pantoprazole 40 mg tablet,delayed 40 mg PO DAILY #90 tab 01/28/20 03/24/21 Unknown release (Protonix) losartan 100 mg tablet 100 mg PO DAILY #90 tab 06/11/20 03/24/21 Unknown metoprolol succinate 50 mg 50 mg PO QAM #90 tab 06/11/20 03/24/21 Unknown tablet,extended release 24 hr spironolactone 25 mg tablet 25 mg PO QAM #90 tab 06/11/20 03/23/21 Unknown levothyroxine 75 mcg tablet 75 mcg PO DAILY #90 tab 07/31/20 03/23/21 Unknown metoprolol succinate 25 mg 25 mg PO QAM #90 tab 07/31/20 03/24/21 Unknown tablet,extended release 24 hr atorvastatin 80 mg tablet 80 mg PO HS #90 tab 09/11/20 03/23/21 Unknown bupropion HCl 150 mg tablet,12 hr 150 mg PO BID #180 ea 09/11/20 03/23/21 Unknown sustained-release metformin 500 mg tablet 500 mg PO TID #270 tab 10/24/20 03/23/21 Unknown balsalazide 750 mg capsule 1,500 mg PO BID #360 cap 02/02/21 03/23/21 Unknown multivitamin 1 tab PO DAILY 03/23/21 03/23/21 Unknown Active Medications Generic Name Dose Route Start Last Admin Trade Name Amanda PRN Reason Stop Dose Admin Bupropion HCl 150 mg 03/24/21 09:00 03/24/21 09:46 Bupropion Sr 150 Mg Tabcr PO 04/23/21 08:59 150 mg BID SINDY Administration Piperacillin Sod/Tazobactam 115 mls @ 28.75 mls/hr 03/24/21 06:00 03/24/21 10:37 Sod 3.375 gm/ Dextrose IV 04/03/21 05:59 Infused Q8H SINDY Infusion Protocol Potassium Chloride/Sodium Chloride 20 meq in 1,000 mls @ 100 mls/hr 03/24/21 02:45 03/24/21 13:41 1/2 Nss + 20meq Kcl 1000ml IV 04/23/21 02:44 0 mls/hr .Q10H SINDY Infusion Magnesium Sulfate/Dextrose 1 gm in 100 mls @ 50 mls/hr 03/24/21 11:45 03/24/21 13:41 Magnesium Sulfate / D5w IV 03/24/21 17:44 0 mls/hr Q2H SINDY Infusion Insulin Aspart 0 units 03/24/21 02:45 03/24/21 12:46 Insulin Aspart Per Unit SC 04/23/21 02:44 Not Given Q6 SINDY Insulin Glargine 3 units 03/24/21 09:00 03/24/21 09:53 Insulin Glargine Solostar 100 Units/Ml 3 Ml Pen SC 04/23/21 08:59 3 units BID SINDY Administration Levothyroxine Sodium 75 mcg 03/24/21 06:30 03/24/21 07:00 Levothyroxine Sodium 75 Mcg Tablet PO 04/23/21 06:29 75 mcg DAILYBB SINDY Administration Metoprolol Succinate 50 mg 03/24/21 09:00 03/24/21 09:46 Metoprolol Succ 50mg Ext Rel Tab PO 04/23/21 08:59 50 mg QAM SINDY Administration Metoprolol Succinate 25 mg 03/24/21 09:00 03/24/21 09:46 Metoprolol Succ 25mg Ext Rel Tab PO 04/23/21 08:59 25 mg QAM SINDY Administration Morphine Sulfate 2 mg 03/24/21 02:19 03/24/21 02:48 Morphine Sulfate 2 Mg/Ml Carp IV 04/07/21 02:18 2 mg Q3H PRN Administration Pain (1,2,3,4,5) & Pre PT Pantoprazole Sodium 40 mg 03/24/21 09:00 03/24/21 09:46 Pantoprazole 40 Mg Tab PO 04/23/21 08:59 40 mg DAILY SINDY Administration NPO Date Last Intake of Fluids: 03/24/21 Time Last Intake of Fluids: 10:00 Last Intake of Fluids Comment: sips Date Last Intake of Solids: 03/23/21 Time Last Intake of Solids: 15:00 Past Medical History Medical History Anxiety Depression Diabetes mellitus, type 2 Difficulty swallowing pills reason for scheduled EGD Hyperlipidemia Hypertension Hypothyroidism Osteoarthritis Schatzki's ring Ulcerative colitis Urinary leakage Exercise / Class Metabolic Activity III < 4 Walking/Shop/Light housework Past Family History Family History Family/Other Crohn's disease Hypertension Mother Hypertension Brother Heart disease Stroke Myocardial infarction Other No family history of adverse response to anesthesia Denies family history of Ovarian cancer Prostate cancer Breast cancer Colorectal cancer Past Surgical History Surgical History H/O colonoscopy H/O tubal ligation History of bilateral cataract extraction History of tooth extraction Hx of tonsillectomy Past Anesthesia History No Hx of Anesthesia Complications and No Family Hx of Anesthesia Complications History of PONV No Hx of PONV and No Hx of Motion Sickness Social History Smoking Status: Never smoker Hx Alcohol Use: No Hx Substance Use: No substance use type: does not use Physical Exam Vital Signs Last Vital Signs Temp 37.7 C H 03/24/21 14:13 Pulse 85 03/24/21 14:13 Resp 20 03/24/21 14:13 BP 118/64 03/24/21 14:13 Pulse Ox 94 03/24/21 14:13 Constitutional + cachectic ENMT Mouth: no dentition abnormality Thyromental Distance: < 3.5 Finger Breadths Mallampati Class: II Neck normal visual inspection and trachea midline; neck extension not limited Respiratory normal respiratory effort Auscultation: lungs clear to auscultation bilaterally Cardiovascular Rate/Rhythm: regular rate and regular rhythm Heart Sounds: no murmur Vessels: no carotid bruit Musculoskeletal Spine: normal cervical ROM Extremities: extremities normal to inspection Neurologic moves all extremities Motor/Sensory: no sensory deficit Psychiatric Orientation: alert and oriented x 3 Testing Laboratory Results 03/24/21 05:18 03/24/21 05:18 PT 10.8 Seconds (9.0-12.0) 03/24/21 05:18 INR 1.1 (0.9-1.1) 03/24/21 05:18 Hemoglobin A1c 7.1 % (4.5-5.6) H 03/24/21 05:18 Urine Color Dark Yellow 03/23/21 22:00 Urine Appearance Clear (Clear) 03/23/21 22:00 Urine pH 5.5 (4.5-7.5) 03/23/21 22:00 Ur Specific Rhine 1.024 (1.000-1.030) 03/23/21 22:00 Urine Protein 2+ (Negative) H 03/23/21 22:00 Urine Glucose (UA) Trace (Negative) H 03/23/21 22:00 Urine Ketones Negative (Negative) 03/23/21 22:00 Urine Nitrite Negative (Negative) 03/23/21 22:00 Ur Leukocyte Esterase 1+ (Negative) H 03/23/21 22:00 Urine WBC (Auto) 1-5 /hpf (0-5) 03/23/21 22:00 Urine RBC (Auto) 0-4 /hpf (0-4) 03/23/21 22:00 U Hyaline Cast (Auto) 1-5 /lpf (0-5) 03/23/21 22:00 U Epithel Cells (Auto) 20-30 /lpf (0-5) H 03/23/21 22:00 Urine Bacteria (Auto) Negative (Negative) 03/23/21 22:00 03/24/21 03/24/21 03/24/21 12:44 09:41 03:12 POC Glucose 131 H 139 H 219 H Electrocardiogram Date: 03/24/21 Findings: + NSR @ (at 81) Chest X-Ray Date: 03/24/21 Findings: + NAD
[2021-03-24] MEDS ORDERED: FLUMAZENIL 0.1 MG/1 ML 10 ML VIAL IV PRN (14:54)
[2021-03-24] MEDS ORDERED: PROMETHAZINE HCL 12.5 MG in SODIUM CHLORIDE 0.9% 50 ML IV PRN (14:54)
[2021-03-24] MEDS ORDERED: ONDANSETRON INJ 2 MG/ML 2 ML VIAL IV PRN (14:54)
[2021-03-24] MEDS ORDERED: ATROPINE SULFATE 0.1 MG/ML 10ML SYR IV PRN (14:54)
[2021-03-24] MEDS ORDERED: NALOXONE HCL 0.4 MG/1 ML VIAL/CARP IV PRN (14:54)
[2021-03-24] MEDS ORDERED: fentaNYL citrate 100 MCG/2 ML VIAL IV PRN (14:54)
[2021-03-24] MEDS ORDERED: ePHEDrine sulfate 50 MG/ML AMP IV PRN (14:54)
[2021-03-24] MEDS ORDERED: LABETALOL HCL IV 5 MG/ML 20ML IV PRN (14:54)
[2021-03-24] MEDS ORDERED: INDOMETHACIN 50 MG SUPP PR ONE (15:01)
[2021-03-24] MEDS ORDERED: ONDANSETRON INJ 2 MG/ML 2 ML VIAL ONE (15:15)
[2021-03-24] MEDS ORDERED: PHENYLEPHRINE HCL 10 MG/ML VIAL ONE (15:15)
[2021-03-24] MEDS ORDERED: LIDOCAINE 2% 2 ML VIAL/AMP(20MG/ML) INFIL ONE (15:15)
[2021-03-24] MEDS ORDERED: ROCURONIUM BROMIDE 10 MG/ML 5 ML VIAL IV ONE (15:15)
[2021-03-24] MEDS ORDERED: LARYING-O-JET KIT (LTA) ONE (15:15)
--- NOTE | 2021-03-24 16:00 | GI REPORT ---
Patient Name: Tammy Maciel Procedure Date: 03/24/2021 3:50 PM Date of : 1945 Admit Type: Inpatient Age: 75 Gender: Female Attending MD: Maykel Maxwell DO Procedure: ERCP Providers: Maykel Maxwell DO Referring MD: Norma Roca Md Indications: Abdominal pain of suspected biliary origin, Suspected ascending cholangitis, Elevated liver enzymes Medicines: General Anesthesia Complications: No immediate complications. Estimated blood loss: Minimal. Estimated Blood Loss: Estimated blood loss was minimal. Procedure: Pre-Anesthesia Assessment: - Prior to the procedure, a History and Physical was performed, and patient medications, allergies and sensitivities were reviewed. The patient's tolerance of previous anesthesia was reviewed. - The risks and benefits of the procedure and the sedation options and risks were discussed with the patient. All questions were answered and informed consent was obtained. - Patient identification and proposed procedure were verified prior to the procedure by the physician, the nurse and the remedial masseur. The procedure was verified in the procedure room. - Pre-procedure physical examination revealed no contraindications to sedation. - ASA Grade Assessment: IV - A patient with severe systemic disease that is a constant threat to life. - After reviewing the risks and benefits, the patient was deemed in satisfactory condition to undergo the procedure. - The anesthesia plan was to use general anesthesia. - Immediately prior to administration of medications, the patient was re-assessed for adequacy to receive sedatives. - The heart rate, respiratory rate, oxygen saturations, blood pressure, adequacy of pulmonary ventilation, and response to care were monitored throughout the procedure. - The physical status of the patient was re-assessed after the procedure. After obtaining informed consent, the scope was passed under direct vision. Throughout the procedure, the patient's blood pressure, pulse, and oxygen saturations were monitored continuously. The Duodenoscope was introduced through the mouth, and advanced to the duodenum and used to inject contrast into the bile duct and ventral pancreatic duct. 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 Successful completion of the procedure was aided by performing the maneuvers documented (below) in this report. Findings: The supply tech film was normal. The esophagus was successfully intubated under direct vision without detailed examination of the pharynx, larynx, and associated structures, and upper GI tract. The upper GI tract was grossly normal. The major papilla was normal. The ventral pancreatic duct was inadvertently cannulated with the short-nosed traction sphincterotome and guidewire without any complications. The bile duct could not be cannulated with the short-nosed traction sphincterotome and several wire combinations guidewire. A 2 mm ventral pancreatic septotomy was made with a monofilament Dreamtome sphincterotome using ERBE electrocautery. There was no post-sphincterotomy bleeding. The bile duct was then deeply cannulated with the short-nosed traction sphincterotome (rx 39) and 0.025 in angled Acrobt guidewire. Contrast was injected. I personally interpreted the bile duct images. Contrast extended to the hepatic ducts. The main bile duct was moderately dilated, with a stone causing an obstruction. The largest diameter was 10 mm. The biliary sphincterotomy was extended to a total of 3 mm in length with a monofilament Dreamtome sphincterotome using ERBE electrocautery. There was no post-sphincterotomy bleeding. The wire was then exchanged to a 0.035 in Acrobat 2 guidewire to facilitate biliary maneuvers. To discover objects, the biliary tree was swept with a 11.5 and 15 mm balloon starting at the bifurcation. Sludge was swept from the duct. One stone was removed. No stones remained. Pus was swept from the duct. Two biliary stents with a single external flap and a single internal flap were placed into the common bile duct (10 Fr 8 cm and 7Fr 7 cm). Bile and pus flowed through the stents. The stents were in good position. One 5 Fr by 7 cm pancreatic stent with a full external pigtail and no internal flaps was placed 7 cm into the ventral pancreatic duct. Clear fluid flowed through the stent. The stent was in good position. The total fluoroscopy exposure time was 2 minutes and 52 seconds. Indomethacin 100 mg was given via suppository to decrease the risk of post-ERCP pancreatitis (PEP). The endoscope was withdrawn from the patient. Impression: - The major papilla appeared normal. - The entire main bile duct was moderately dilated, with a stone causing an obstruction. - Choledocholithiasis and cholangitis was found. Complete removal was accomplished by biliary sphincterotomy and balloon extraction. - Two biliary stents were placed into the common bile duct. - One prophylactic pancreatic stent was placed into the ventral pancreatic duct. - Indomethacin given to decrease risk of post-ERCP pancreatitis. Recommendation: - Avoid aspirin and nonsteroidal anti-inflammatory medicines for 5 days. - Use broad spectrum antibiotics for 2 weeks. - Repeat ERCP in 6 weeks to remove stent. - Cholecystectomy per general surgery. Maykel Maxwell D.O. Maykel Maxwell, 03/24/2021 4:00:06 PM This report has been signed electronically. Note Initiated On: 03/24/2021 3:50 PM Number of Addenda: 0 I attest to the content of the Intraoperative Record and orders documented therein, exceptions below {[id number]}
--- NOTE | 2021-03-24 16:01 | Post Operative Brief Note ---
Immediate Post Op Note v1 Date of Surgery March 24, 2021 Pre & Post Diagnosis Operation Date: 03/24/21 12:25 Pre-Op Diagnosis: ABDOMINAL PAIN, ABNORMAL LFTs Post-Op Diagnosis: CHOLANGITIS I identified the patient and participated in the time-out.: Yes Procedure Operation Date: 03/24/21 12:25 Actual Procedures p Endoscopic Retrograde Cholangiopancreato - Maykel Maxwell DO Operation Date: 03/25/21 12:40 <No data on this case meets the specified criteria> Surgeon Maykel Maxwell DO Visual C Developer none Estimated Blood Loss 0 Findings Consistent with Post-Op Diagnosis
--- NOTE | 2021-03-24 16:02 | Communication Note ---
Date of Service: March 24, 2021 The patient underwent urgent ERCP today for suspected cholangitis. She was found to have a stone within the common bile duct in addition to evidence of cholangitis. This was treated with a biliary sphincterotomy and gallstone extraction. 2 plastic biliary stents were placed in addition to a prophylactic pancreatic stent Recommendations Continue IV hydration Continue broad-spectrum antibiotic coverage for total of 14 days General surgery consultation to discuss cholecystectomy Avoid nonsteroidals for 5 days if possible Repeat ERCP for stent removal in 6 to 8 weeks
--- NOTE | 2021-03-24 16:32 | Fluoroscopy Report ---
[place] ERCP biliary ductal CLINICAL HISTORY: IN OR. Suspected choledocholithiasis COMPARISON STUDY: MRCP FLUOROSCOPY TIME: 172 seconds. FLUOROSCOPIC IMAGES: 8 images FINDINGS: Fluoroscopic spot images were obtained status post cannulation of the common bile duct and placement of a biliary stent. With contrast injection, there are intraluminal filling defects present which are characteristic of choledocholithiasis. IMPRESSION: Status post placement of a biliary stent. Please see intraoperative note for further oc luation. ACT 112: Negative or not required by law. Electronically signed by: Ryan Crenshaw M.D. 03/24/2021 4:30 PM
--- NOTE | 2021-03-24 16:46 | Anesthesiology Progress Note ---
Date of Service March 24, 2021 Anesthesia Post Procedure Vital Signs Vital Signs: Temp Pulse Pulse Pulse Resp BP BP 03/24/21 16:35 37.6 C H 69 17 112/83 03/24/21 16:25 37.6 C H 71 19 114/64 03/24/21 16:15 67 14 114/68 03/24/21 16:05 70 21 119/67 03/24/21 15:56 37.3 C 72 12 111/64 03/24/21 14:13 37.7 C H 85 20 118/64 03/24/21 11:03 82 20 117/62 03/24/21 09:58 36.6 C 82 20 119/57 L 03/24/21 09:36 81 03/24/21 06:18 80 18 143/76 H 03/24/21 02:20 76 18 177/90 H 03/24/21 02:01 78 18 177/90 H 03/23/21 23:57 77 18 160/76 H 03/23/21 22:30 72 18 188/92 H 03/23/21 21:46 36.6 C 63 18 174/82 H Pulse Ox 03/24/21 16:35 96 03/24/21 16:25 100 03/24/21 16:15 100 03/24/21 16:05 100 03/24/21 15:56 100 03/24/21 14:13 94 03/24/21 11:03 97 03/24/21 09:58 96 03/24/21 09:36 03/24/21 06:18 93 03/24/21 02:20 96 03/24/21 02:01 96 03/23/21 23:57 96 03/23/21 22:30 97 03/23/21 21:46 98 Pain Intensity Abdomen: Pain Intensity: 2 Transfer of Care Handoff Completed per policy Notes Mental Status: alert / awake / arousable Patient Amnestic to Procedure: Yes Nausea / Vomiting: adequately controlled Pain: adequately controlled Airway Patency, RR, SpO2: stable & adequate BP & HR: stable & adequate Hydration State: stable & adequate Anesthetic Complications: no major complications apparent
[2021-03-24] MEDS: ONDANSETRON INJ 2 MG/ML 2 ML VIAL IV PRN (20:05)
[2021-03-24] MEDS ORDERED: ACETAMINOPHEN 325 MG TAB PO PRN (20:37)
[2021-03-24] MEDS ORDERED: Nursing to Pharmacy Communication SCH (22:30)
[2021-03-25] MEDS: INSULIN ASPART PER UNIT SC SCH ×4 (00:09→21:03)
[2021-03-25] MEDS: SODIUM CHLOR 0.45% + 20MEQ KCL 20 MEQ/1,000 ML BAG IV SCH ×2 (05:45→16:35)
[2021-03-25] MEDS: PIPERACILLIN/TAZOBACTAM 3.375 GM in DEXTROSE 5% 100 ML IV SCH ×3 (05:48→22:13)
[2021-03-25] MEDS: LEVOTHYROXINE SODIUM 75 MCG TABLET PO SCH (05:52)
[2021-03-25 07:55] LABS: Basophils # (auto) 0.01 K/uL (0-0.2); Basophils % (auto) 0.1 %; Hematocrit (blood only) 32.7 % (37-47); Hemoglobin 10.8 g/dL (12.0-16.0); Immature Granulocytes # (auto) 0.01 K/uL (0.00-0.02); Immature Granulocytes % (auto) 0.1 %; Lymphocytes # (auto) 0.92 K/uL (1.2-3.4); Lymphocytes % (auto) 7.5 %; Mean Corpuscular Hemoglobin 29.9 pg (25-34); Mean Corpuscular Volume 90.6 fL (80-100); Mean Platelet Volume 10.8 fL (7.4-10.4); Monocytes # (auto) 0.57 K/uL (0.11-0.59); Monocytes % (auto) 4.6 %; Neutrophils % (auto) 87.7 %; Platelet Count 177 K/uL (130-400); RDW Coefficient of Variation 13.9 % (11.5-14.5); RDW Standard Deviation 46.5 fL (36.4-46.3); Red Blood Count 3.61 M/uL (4.2-5.4); White Blood Count 12.31 K/uL (4.8-10.8)
[2021-03-25 08:19] LABS: Albumin Level 3.1 gm/dl (3.4-5.0); BUN Creatinine Ratio 15.1 (10-20); Bilirubin Direct 2.7 mg/dl (0-0.2); Bilirubin,Total 3.4 mg/dl (0.2-1.0); Calcium 7.8 mg/dl (8.5-10.1); Creatinine Clr Calc Pharmacy 44.2 ml/min; Est GFR (African American) 75.5 ml/min; Est GFR (Non-African American) 65.2 ml/min; Magnesium 2.2 mg/dl (1.7-2.4); Potassium 4.1 mmol/L (3.5-5.1); Total Protein 5.6 gm/dl (6.0-8.3)
[2021-03-25] MEDS: buPROPion SR 150 MG TABCR PO SCH ×2 (08:40→21:03)
[2021-03-25] MEDS: METOPROLOL SUCC 25MG EXT REL TAB PO SCH (08:40)
[2021-03-25] MEDS: METOPROLOL SUCC 50MG EXT REL TAB PO SCH (08:40)
[2021-03-25] MEDS: INSULIN GLARGINE SOLOSTAR 100 UNITS/ML 3 ML PEN SC SCH ×2 (08:41→21:04)
--- NOTE | 2021-03-25 08:43 | Hospitalist Progress Note ---
Date of Service March 25, 2021 Assessment & Plan (1) Choledocholithiasis with acute cholecystitis with obstruction: Plan: 75yo female with history of HTN, HLP, DM and Ulcerative colitis presenting with epigastric/RUQ abdominal pain ongoing x 1 day. Previously with known cholelithiasis, seen by Dr Alexis in past CT AP on admission with intrahepatic biliary ductal dilatation concerning for choledocholithiasis vs pancreatic head mass. GI consulted Underwent MRCP 03/24, followed by ERCP by Dr Maxwell with findings consistent with choledocholithiasis and cholangitis * stone removal and biliary sphincterotomy and balloon extraction done, two biliary stents placed into CBD. One proph pancreatic stent placed and indomethacin given to decrease risk post-ERCP pancreatitis * Avoid ASA/NSAIDs x 5 days * Will need abx x 2 weeks * Repeat ERCP 6 weeks for stent removal Of note, in patient with UC, concerns for PSC/PBC but per GI not appearing as such on ERCP and would defer to regular GI provider for possible need for biopsy in future at their discretion Clear liquids provided overnight, then NPO for josh Lipase slightly elevated today 323, was 200, likely from stent/ercp General surgery Zosyn (day 2) -- continue, and will need 2 weeks abx as above WBC up to 32.7k on 03/24, low grade temp 37.6C last evening WBC now 12.3k, no further temps NPO IVF continued, increased TB remains elevated, 3.4 (DB 2.7) AST improved from 1206--> 230, ALT 650--> 245, ALP 209--> 143 Ca 8.5 corrected Antiemetics, pain control prn --> pain 3/10 this morning but has not needed anything Hypoactive BS and encouraged ambulation prior to surgery and will need to work on aggressive regimen following Continue to monitor labs/electrolyte replacement as needed (2) Abdominal pain: Plan: improved from prior -- 2nd to above medications available prn -- not requiring anything at this time hypoactive BS and encouraged ambulation, passing minimal gas (3) Ulcerative colitis: Plan: Chronic -Hold Balsalazide for now -- ok to resume per GI when no longer NPO. Discussed with patient if possible to have someone bring this medication in for her (4) Hypertension: Plan: Elevated on admit, 2nd to pain Holding losartan/spironolactone for now, BP stable 128/70 Continue metoprolol Continue to monitor (5) Hyperlipemia: Plan: Chronic -Hold Atorvastatin for now, resume tomorrow when able (6) Hypothyroidism: Plan: Chronic -Continue Synthroid 75mcg po daily (7) Diabetes type 2, controlled: Plan: Chronic. Elevated blood sugar on admit at 214. Fairly well controlled with [id number] on 09/18/20, repeat improved to 7.1 -Hold Metformin -Lantus 3u BID and ISS - patient insulin naive, NPO -Goal blood sugar 100 - 140 BSGs accepatble COntinue to monitor (8) Depression: Plan: Chronic -Continue Bupropion 150mg po BID (9) Esophageal reflux: Plan: Chronic -Continue Protonix 40mg po daily (IVP while npo) Plan: DVT Proph - SCDs for now, chemoproph following josh this afternoon Continued inpatient stay GI, general surgery on consult NPO Abx - will need 2 weeks given ERCP, repeat in 6 weeks for stent removal IVF, pain control, antiemetics Monitor labs/electrolyte replacement as needed Admission and Anticipated Discharge Date Admission Date: March 24, 2021 Supervising Physician Co-Signing Physician Notes PA Supervision Note: I did not personally see or examine the patient today, but I verified all dykes points of DANIEL Gray's assessment and plan with the following exceptions/additions: Hyponatremia- Na+ 129--> recommend changing to isotonic IVFs , follow BMP Continnue IV abx, awaiting cholecystectomy today Subjective patient seen this morning doing better than yesterday but still not feeling great. discussed ERCP findings/stent/need for repeat ERCP in next 6-8 wks for removal. less abdominal pain, 3/10 but not needing anything at this time. located epigastric >RUQ no nausea/vomiting passed some gas last night but not much today. no BM. encouraged ambulation prior to going down for procedure. chills but no fever. no chest pain/shortness of breath. NPO for josh planned this afternoon. Review of Systems Review of Systems: All systems reviewed & are unremarkable except as noted in HPI & below Physical Exam Constitutional: well developed and well nourished; no acute distress and not ill appearing Eyes: + anicteric sclerae and PERRL ENMT: mmm Neck: normal visual inspection and trachea midline Respiratory: normal respiratory effort, lungs clear to auscultation Cardiovascular: RRR, no murmur, no edema Gastrointestinal (Abdomen): Inspection/Auscultation: abdomen normal to inspection and + hypoactive bowel sounds; abdomen not distended and no abdominal surgical scar Percussion/Palpation: + abdomen tender (Epigastric > RUQ) and abdomen soft; no guarding, abdomen not rigid and no hernia Musculoskeletal: moves all extremities Skin: no rashes, warm and dry no jaundice Neurologic: PERRL, EOMI, accommodation nl, no face palsy, no dysarthria Psychiatric: Orientation: alert and oriented x 3 Lymphatic: no cervical or axillary lymphadenopathy Results & Data Results & Data ([facility]) Vital Signs (Past 12 Hours) Vital Signs Temp Pulse Pulse Pulse Resp BP BP 03/25/21 07:45 36.7 C 67 15 128/70 03/25/21 06:58 36.7 C 62 18 122/68 03/25/21 04:00 36.5 C 58 L 20 131/69 03/24/21 23:03 61 03/24/21 23:01 57 L 03/24/21 23:00 36.5 C 59 L 18 126/68 Pulse Ox 03/25/21 07:45 96 03/25/21 06:58 96 03/25/21 04:00 96 03/24/21 23:03 03/24/21 23:01 03/24/21 23:00 97 Laboratory Results 03/25/21 03/25/21 03/25/21 Range/Units 07:12 07:12 05:56 WBC 12.31 H (4.8-10.8) K/uL RBC 3.61 L (4.2-5.4) M/uL Hgb 10.8 L (12.0-16.0) g/dL Hct 32.7 L (37-47) % MCV 90.6 (80-100) fL MCH 29.9 (25-34) pg MCHC 33.0 (32-36) g/dL RDW Std Deviation 46.5 H (36.4-46.3) fL RDW Coeff of Kaylen 13.9 (11.5-14.5) % Plt Count 177 (130-400) K/uL MPV 10.8 H (7.4-10.4) fL Immature Gran % (Auto) 0.1 % Neut % (Auto) 87.7 % Lymph % (Auto) 7.5 % [place] % (Auto) 4.6 % Eos % (Auto) 0.0 % Baso % (Auto) 0.1 % Neut # (Auto) 10.80 H (1.4-6.5) K/uL Lymph # (Auto) 0.92 L (1.2-3.4) K/uL [place] # (Auto) 0.57 (0.11-0.59) K/uL Eos # (Auto) 0.00 (0-0.5) K/uL Baso # (Auto) 0.01 (0-0.2) K/uL Immature Gran # (Auto) 0.01 (0.00-0.02) K/uL Sodium 129 L (136-145) mmol/L Potassium 4.1 (3.5-5.1) mmol/L Chloride 100 (98-107) mmol/L Carbon Dioxide 22 (21-32) mmol/L Anion Gap 7 (3-11) BUN 13 (6-23) mg/dl Creatinine 0.86 (0.6-1.2) mg/dl Est Cr Clr Drug Dosing 44.2 ml/min Est GFR ( Amer) 75.5 ml/min Est GFR (Non-Af Amer) 65.2 ml/min BUN/Creatinine Ratio 15.1 (10-20) Glucose 110 H (70-99) mg/dl POC Glucose 110 H (70-99) mg/dl Calcium 7.8 L (8.5-10.1) mg/dl Magnesium 2.2 (1.7-2.4) mg/dl Total Bilirubin 3.4 H (0.2-1.0) mg/dl Direct Bilirubin 2.7 H (0-0.2) mg/dl AST 230 H (13-39) U/L ALT 245 H (7-52) U/L Alkaline Phosphatase 143 H (34-104) U/L Total Protein 5.6 L (6.0-8.3) gm/dl Albumin 3.1 L (3.4-5.0) gm/dl Lipase 328 H (11-82) U/L 03/25/21 03/24/21 03/24/21 Range/Units 00:01 20:04 18:03 WBC (4.8-10.8) K/uL RBC (4.2-5.4) M/uL Hgb (12.0-16.0) g/dL Hct (37-47) % MCV (80-100) fL MCH (25-34) pg MCHC (32-36) g/dL RDW Std Deviation (36.4-46.3) fL RDW Coeff of Kaylen (11.5-14.5) % Plt Count (130-400) K/uL MPV (7.4-10.4) fL Immature Gran % (Auto) % Neut % (Auto) % Lymph % (Auto) % [place] % (Auto) % Eos % (Auto) % Baso % (Auto) % Neut # (Auto) (1.4-6.5) K/uL Lymph # (Auto) (1.2-3.4) K/uL [place] # (Auto) (0.11-0.59) K/uL Eos # (Auto) (0-0.5) K/uL Baso # (Auto) (0-0.2) K/uL Immature Gran # (Auto) (0.00-0.02) K/uL Sodium (136-145) mmol/L Potassium (3.5-5.1) mmol/L Chloride (98-107) mmol/L Carbon Dioxide (21-32) mmol/L Anion Gap (3-11) BUN (6-23) mg/dl Creatinine (0.6-1.2) mg/dl Est Cr Clr Drug Dosing ml/min Est GFR ( Amer) ml/min Est GFR (Non-Af Amer) ml/min BUN/Creatinine Ratio (10-20) Glucose (70-99) mg/dl POC Glucose 239 H 197 H 181 H (70-99) mg/dl Calcium (8.5-10.1) mg/dl Magnesium (1.7-2.4) mg/dl Total Bilirubin (0.2-1.0) mg/dl Direct Bilirubin (0-0.2) mg/dl AST (13-39) U/L ALT (7-52) U/L Alkaline Phosphatase (34-104) U/L Total Protein (6.0-8.3) gm/dl Albumin (3.4-5.0) gm/dl Lipase (11-82) U/L 03/24/21 03/24/21 03/24/21 Range/Units 15:57 12:44 09:41 WBC (4.8-10.8) K/uL RBC (4.2-5.4) M/uL Hgb (12.0-16.0) g/dL Hct (37-47) % MCV (80-100) fL MCH (25-34) pg MCHC (32-36) g/dL RDW Std Deviation (36.4-46.3) fL RDW Coeff of Kaylen (11.5-14.5) % Plt Count (130-400) K/uL MPV (7.4-10.4) fL Immature Gran % (Auto) % Neut % (Auto) % Lymph % (Auto) % [place] % (Auto) % Eos % (Auto) % Baso % (Auto) % Neut # (Auto) (1.4-6.5) K/uL Lymph # (Auto) (1.2-3.4) K/uL [place] # (Auto) (0.11-0.59) K/uL Eos # (Auto) (0-0.5) K/uL Baso # (Auto) (0-0.2) K/uL Immature Gran # (Auto) (0.00-0.02) K/uL Sodium (136-145) mmol/L Potassium (3.5-5.1) mmol/L Chloride (98-107) mmol/L Carbon Dioxide (21-32) mmol/L Anion Gap (3-11) BUN (6-23) mg/dl Creatinine (0.6-1.2) mg/dl Est Cr Clr Drug Dosing ml/min Est GFR ( Amer) ml/min Est GFR (Non-Af Amer) ml/min BUN/Creatinine Ratio (10-20) Glucose (70-99) mg/dl POC Glucose 159 H 131 H 139 H (70-99) mg/dl Calcium (8.5-10.1) mg/dl Magnesium (1.7-2.4) mg/dl Total Bilirubin (0.2-1.0) mg/dl Direct Bilirubin (0-0.2) mg/dl AST (13-39) U/L ALT (7-52) U/L Alkaline Phosphatase (34-104) U/L Total Protein (6.0-8.3) gm/dl Albumin (3.4-5.0) gm/dl Lipase (11-82) U/L Diagnostic Findings Chest X-Ray 03/24/21 11:25 XR chest 1V portable CLINICAL HISTORY: pre-op. Evaluate cardiopulmonary status COMPARISON STUDY: 05/24/2015 TECHNIQUE: 1 view of the chest FINDINGS: Single frontal view of the chest demonstrates the cardiomediastinal silhouette to be within normal limits. The lungs are clear of alveolar opacities. There is no evidence for pleural effusion. There is no evidence for vascular congestion. There is no acute osseous pathology. IMPRESSION: No acute cardiopulmonary disease. ACT 112: Negative or not required by law. Electronically signed by: Ryan Crenshaw M.D. 03/24/2021 12:01 PM Endo Retro Cholangiopancreatogram 03/24/21 15:00 FL ERCP biliary ductal CLINICAL HISTORY: IN OR. Suspected choledocholithiasis COMPARISON STUDY: MRCP FLUOROSCOPY TIME: 172 seconds. FLUOROSCOPIC IMAGES: 8 images FINDINGS: Fluoroscopic spot images were obtained status post cannulation of the common bile duct and placement of a biliary stent. With contrast injection, there are intraluminal filling defects present which are characteristic of choledocholithiasis. IMPRESSION: Status post placement of a biliary stent. Please see intraoperative note for further evaluation. ACT 112: Negative or not required by law. Electronically signed by: Ryan Crenshaw M.D. 03/24/2021 4:30 PM PG Care Time/CCT Total # of Minutes Spent Total Time Spent with Patient: Total time spent is greater than 50% in coordination of care (as documented) at patient's floor/unit and/or counseling patient: Coding Level of Care Code 46013 Subseq Hosp Care Lvl 3 Diagnoses Abdominal pain R10.9 Hypertension I10 Hyperlipemia E78.5 Hypothyroidism E03.9 Diabetes type 2, controlled E11.9 Depression F32.9 Esophageal reflux K21.9 Ulcerative colitis K51.90 Choledocholithiasis with acute cholecystitis with obstruction K80.43
[2021-03-25] MEDS ORDERED: ATROPINE SULFATE 0.1 MG/ML 10ML SYR IV PRN (10:55)
[2021-03-25] MEDS ORDERED: ONDANSETRON INJ 2 MG/ML 2 ML VIAL IV PRN (10:55)
[2021-03-25] MEDS ORDERED: HYDROmorphone INJ 1 MG/ML SYRINGE IV PRN (10:55)
[2021-03-25] MEDS ORDERED: LABETALOL HCL IV 5 MG/ML 20ML IV PRN (10:55)
[2021-03-25] MEDS ORDERED: ePHEDrine sulfate 50 MG/ML AMP IV PRN (10:55)
[2021-03-25] MEDS ORDERED: MEPERIDINE HCL 25 MG/ML CARP/VIAL IV PRN (10:55)
[2021-03-25] MEDS ORDERED: PHENYLEPHRINE 100MCG/ML 5ML SYR IV PRN (10:55)
[2021-03-25] MEDS ORDERED: fentaNYL citrate 100 MCG/2 ML VIAL IV PRN (10:55)
[2021-03-25] MEDS ORDERED: PANTOprazole 40 MG in SYRINGE 0 ML IV SCH (11:00)
--- NOTE | 2021-03-25 11:04 | Gastroenterology Progress Note ---
Date of Service March 25, 2021 Assessment & Plan (1) Choledocholithiasis: (2) Abdominal pain: (3) Leukocytosis: (4) Transaminitis: Plan: Post procedure day #1 from ERCP for cholangitis.Sphincterotomy with stone extraction. Placement of 2 plastic bile duct stents and a pancreatic stent. I understand cholecystectomy is planned. Diet per surgery. Rec: Broad-spectrum antibiotic coverage for total of 14 days Avoid NSAIDs for 5 days if possible Repeat ERCP for stent removal in 6 to 8 weeks. Our office will call her to arrange. Admission and Anticipated Discharge Date Admission Date: March 24, 2021 Supervising Physician Co-Signing Physician Notes Attg add: I reviewed chart and labs. Pt with improved WBC, improved pain, improved bili. Recommendations as above. Please reconsult as needed. Subjective Post procedure day # 1 from ERCP with sphincterotomy and stone extraction. Cholangitis present. On Zosyn IV. Feels better. WBC and LFTs improving: T bili 3.4, D 2.7, AST 230, ALT 245, Alk Phos 143. Review of Systems Review of Systems: ROS: Gen: Much improved compared to yesterday but still some chills, No weakness, No measured fevers, no weight loss Eyes: No eye redness, or pain, no recent vision changes Resp: No SOB, no cough Cardio: No palpitations/irregular beats, no chest pain GI:See HPI : Denies pain on urination Skin: No jaundice, itching or new rashes Physical Exam Constitutional: well developed, + thin and cooperative Eyes: PERRL, conjunctivae normal, anicteric sclerae ENMT: external ear and nose normal, oropharynx normal Neck: trachea midline, no thyromegaly Respiratory: normal respiratory effort, lungs clear to auscultation Cardiovascular: RRR, no murmur, no edema Gastrointestinal (Abdomen): Inspection/Auscultation: abdomen normal to inspection and + hypoactive bowel sounds; abdomen not distended Percussion/Palpation: + abdomen tender (minimal RUQ discomfort on deep palpation) and abdomen soft; no guarding and abdomen not rigid Skin: no rashes, warm and dry normal turgor Neurologic: PERRL, EOMI, accommodation nl, no face palsy, no dysarthria awake; not confused Psychiatric: A+Ox3, euthymic affect Lymphatic: no cervical or axillary lymphadenopathy Results & Data ([facility]) Vital Signs (Past 12 Hours) Vital Signs Temp Pulse Pulse Pulse Resp BP BP 03/25/21 10:53 37 C 68 17 137/76 03/25/21 07:45 36.7 C 67 15 128/70 03/25/21 06:58 36.7 C 62 18 122/68 03/25/21 04:00 36.5 C 58 L 20 131/69 03/24/21 23:03 61 03/24/21 23:01 57 L Pulse Ox 03/25/21 10:53 96 03/25/21 07:45 96 03/25/21 06:58 96 03/25/21 04:00 96 03/24/21 23:03 03/24/21 23:01 Laboratory Results WBC 12, Hb 10, Hct 32, Plts 177, Na 129, K 4.1, Cl 100, CO2 22, BUN 13, Cr 0.86, glucose 110 . See HPI for LFTs. (1) Leukocytosis Leukocytosis type: unspecified Qualified Code(s): D72.829 - Elevated white blood cell count, unspecified
--- NOTE | 2021-03-25 11:21 | Anesthesiology Consultation ---
Date of Service March 25, 2021 Assessment & Plan (1) Encounter for pre-operative examination: Chart Review Chart Review: Acceptable Risk for Surgery and Patient NOT seen in Pre Admission Testing Consults Requested none History Surgery Operation Date: 03/24/21 12:25 Proposed Procedures p Endoscopic Retrograde Cholangiopancreatogram - Maykel Maxwell DO Operation Date: 03/25/21 12:40 Proposed Procedures p Laparoscopic Cholecystectomy - Yovani Ignacio MD Height/Weight Height: 5 ft Weight: 59.5 kg Allergies Allergy/AdvReac Type Severity Reaction Status Date / Time lisinopril AdvReac Intermediate Cough Verified 03/24/21 00:14 Medications Home Medications Medication Instructions Recorded Confirmed Last Taken calcium carbonate 600 mg calcium 600 mg PO QDD tab 11/29/18 03/24/21 09/16/19 17:00 (1,500 mg) tablet potassium gluconate 595 mg (99 mg) 99 mg PO QDD 09/12/19 03/24/21 09/16/19 17:00 tablet vitamin E 400 unit capsule 400 unit PO QDD 09/12/19 03/24/21 09/16/19 17:00 pantoprazole 40 mg tablet,delayed 40 mg PO DAILY #90 tab 01/28/20 03/24/21 Unknown release (Protonix) losartan 100 mg tablet 100 mg PO DAILY #90 tab 06/11/20 03/24/21 Unknown metoprolol succinate 50 mg 50 mg PO QAM #90 tab 06/11/20 03/24/21 Unknown tablet,extended release 24 hr spironolactone 25 mg tablet 25 mg PO QAM #90 tab 06/11/20 03/23/21 Unknown levothyroxine 75 mcg tablet 75 mcg PO DAILY #90 tab 07/31/20 03/23/21 Unknown metoprolol succinate 25 mg 25 mg PO QAM #90 tab 07/31/20 03/24/21 Unknown tablet,extended release 24 hr atorvastatin 80 mg tablet 80 mg PO HS #90 tab 09/11/20 03/23/21 Unknown bupropion HCl 150 mg tablet,12 hr 150 mg PO BID #180 ea 09/11/20 03/23/21 Unknown sustained-release metformin 500 mg tablet 500 mg PO TID #270 tab 10/24/20 03/23/21 Unknown balsalazide 750 mg capsule 1,500 mg PO BID #360 cap 02/02/21 03/23/21 Unknown multivitamin 1 tab PO DAILY 03/23/21 03/23/21 Unknown Active Medications Generic Name Dose Route Start Last Admin Trade Name Amanda PRN Reason Stop Dose Admin Bupropion HCl 150 mg 03/24/21 09:00 03/25/21 08:40 Bupropion Sr 150 Mg Tabcr PO 04/23/21 08:59 150 mg BID SINDY Administration Piperacillin Sod/Tazobactam 115 mls @ 28.75 mls/hr 03/24/21 06:00 03/25/21 09:50 Sod 3.375 gm/ Dextrose IV 04/03/21 05:59 Infused Q8H SINDY Infusion Protocol Potassium Chloride/Sodium Chloride 20 meq in 1,000 mls @ 125 mls/hr 03/24/21 02:45 03/25/21 05:45 1/2 Nss + 20meq Kcl 1000ml IV 04/23/21 02:44 100 mls/hr .Q8H SINDY Administration Insulin Aspart 0 units 03/24/21 02:45 03/25/21 06:10 Insulin Aspart Per Unit SC 04/23/21 02:44 Not Given Q6 SINDY Insulin Glargine 3 units 03/24/21 09:00 03/25/21 08:41 Insulin Glargine Solostar 100 Units/Ml 3 Ml Pen SC 04/23/21 08:59 3 units BID SINDY Administration Levothyroxine Sodium 75 mcg 03/24/21 06:30 03/25/21 05:52 Levothyroxine Sodium 75 Mcg Tablet PO 04/23/21 06:29 75 mcg DAILYBB SINDY Administration Metoprolol Succinate 50 mg 03/24/21 09:00 03/25/21 08:40 Metoprolol Succ 50mg Ext Rel Tab PO 04/23/21 08:59 50 mg QAM SINDY Administration Metoprolol Succinate 25 mg 03/24/21 09:00 03/25/21 08:40 Metoprolol Succ 25mg Ext Rel Tab PO 04/23/21 08:59 25 mg QAM SINDY Administration Morphine Sulfate 2 mg 03/24/21 02:19 03/24/21 02:48 Morphine Sulfate 2 Mg/Ml Carp IV 04/07/21 02:18 2 mg Q3H PRN Administration Pain (1,2,3,4,5) & Pre PT Ondansetron HCl 4 mg 03/24/21 02:19 03/24/21 20:05 Ondansetron Inj 2 Mg/Ml 2 Ml Vial IV 04/23/21 02:18 4 mg Q6H PRN Administration Nausea And Vomiting Pantoprazole Sodium 40 mg 03/24/21 09:00 03/24/21 09:46 Pantoprazole 40 Mg Tab PO 04/23/21 08:59 40 mg DAILY SINDY Administration NPO Date Last Intake of Fluids: 03/23/21 Time Last Intake of Fluids: 18:00 Last Intake of Fluids Comment: sips of water this am with pills Date Last Intake of Solids: 03/23/21 Time Last Intake of Solids: 15:00 Past Medical History Medical History Anemia Anxiety Depression Diabetes mellitus, type 2 Difficulty swallowing pills reason for scheduled EGD Hyperlipidemia Hypertension Hyponatremia Hypothyroidism Osteoarthritis Schatzki's ring Ulcerative colitis Urinary leakage Past Family History Family History Family/Other Crohn's disease Hypertension Mother Hypertension Brother Heart disease Stroke Myocardial infarction Other No family history of adverse response to anesthesia Denies family history of Ovarian cancer Prostate cancer Breast cancer Colorectal cancer Past Surgical History Surgical History H/O colonoscopy H/O tubal ligation History of bilateral cataract extraction History of tooth extraction Hx of tonsillectomy Social History Smoking Status: Never smoker Hx Alcohol Use: No Hx Substance Use: No substance use type: does not use Physical Exam Vital Signs Last Vital Signs Temp 37 C 03/25/21 10:53 Pulse 68 03/25/21 10:53 Resp 17 03/25/21 10:53 BP 137/76 03/25/21 10:53 Pulse Ox 96 03/25/21 10:53 Testing Laboratory Results 03/25/21 07:12 03/25/21 07:12 PT 10.8 Seconds (9.0-12.0) 03/24/21 05:18 INR 1.1 (0.9-1.1) 03/24/21 05:18 Hemoglobin A1c 7.1 % (4.5-5.6) H 03/24/21 05:18 Urine Color Dark Yellow 03/23/21 22:00 Urine Appearance Clear (Clear) 03/23/21 22:00 Urine pH 5.5 (4.5-7.5) 03/23/21 22:00 Ur Specific [place] 1.024 (1.000-1.030) 03/23/21 22:00 Urine Protein 2+ (Negative) H 03/23/21 22:00 Urine Glucose (UA) Trace (Negative) H 03/23/21 22:00 Urine Ketones Negative (Negative) 03/23/21 22:00 Urine Nitrite Negative (Negative) 03/23/21 22:00 Ur Leukocyte Esterase 1+ (Negative) H 03/23/21 22:00 Urine WBC (Auto) 1-5 /hpf (0-5) 03/23/21 22:00 Urine RBC (Auto) 0-4 /hpf (0-4) 03/23/21 22:00 U Hyaline Cast (Auto) 1-5 /lpf (0-5) 03/23/21 22:00 U Epithel Cells (Auto) 20-30 /lpf (0-5) H 03/23/21 22:00 Urine Bacteria (Auto) Negative (Negative) 03/23/21 22:00 03/25/21 03/25/21 03/25/21 08:45 05:56 00:01 POC Glucose 97 110 H 239 H Electrocardiogram Date: 03/24/21 Findings: + NSR @ (at 81) Chest X-Ray Date: 03/24/21 Findings: + NAD
[2021-03-25] MEDS ORDERED: NEOSTIGMINE METHYLSULFATE 1 MG/ML 10ML VIAL ONE (11:28)
[2021-03-25] MEDS ORDERED: DEXAMETHASONE SOD INJ 4 MG/ML VIAL ONE (11:28)
[2021-03-25] MEDS ORDERED: PROPOFOL IV EMULSION 10 MG/ML 20 ML VIAL IV ONE (11:28)
[2021-03-25] MEDS ORDERED: GLYCOPYRROLATE 0.2 MG/ML VIAL ONE (11:28)
[2021-03-25] MEDS ORDERED: LIDOCAINE 2% 2 ML VIAL/AMP(20MG/ML) INFIL ONE (11:28)
[2021-03-25] MEDS ORDERED: ONDANSETRON INJ 2 MG/ML 2 ML VIAL ONE (11:28)
[2021-03-25] MEDS ORDERED: fentaNYL citrate 100 MCG/2 ML VIAL ONE (11:29)
--- NOTE | 2021-03-25 11:31 | History & Physical Bridge Note ---
Date of Service March 25, 2021 History & Physical Bridge Note I have examined the patient, reviewed the History & Physical and in the interval since the performance of the History & Physical I have noted the following changes of clinical significance: no changes noted, plan to do laparoscopic cholecystectomy
[2021-03-25] MEDS ORDERED: BUPIVACAINE 0.5 % 5 MG/1 ML MPF 30ML VIAL ONE (11:53)
[2021-03-25] MEDS ORDERED: BACITRACIN OINT 15 GM TUBE ONE (11:53)
[2021-03-25] MEDS ORDERED: LIDOCAINE 1% LOCAL 20 ML VIAL ONE (11:53)
[2021-03-25] MEDS ORDERED: SUGAMMADEX SODIUM 200 MG/2 ML VIAL IV ONE (13:06)
--- NOTE | 2021-03-25 13:08 | Post Operative Brief Note ---
Immediate Post Op Note v1 Date of Surgery March 25, 2021 Pre & Post Diagnosis Operation Date: 03/24/21 12:25 Pre-Op Diagnosis: ABDOMINAL PAIN, ABNORMAL LFTs Post-Op Diagnosis: CHOLANGITIS Operation Date: 03/25/21 12:40 Pre-Op Diagnosis: acute cholecystitis, Cholelithiasis Post-Op Diagnosis: acute cholecystitis, Cholelithiasis I identified the patient and participated in the time-out.: Yes Procedure Operation Date: 03/24/21 12:25 Actual Procedures p Endoscopic Retrograde Cholangiopancreato - Maykel Maxwell DO Operation Date: 03/25/21 12:40 Actual Procedures p Laparoscopic Cholecystectomy - Yovani Ignacio MD Surgeon Yovani Ignacio MD Manager Copy DANIEL Drake Estimated Blood Loss 20 Findings Consistent with Post-Op Diagnosis Fluids 600ml Specimens gallbladder Anesthesia Type General Complications none Disposition Accompanied Patient To Recovery: Yes
--- NOTE | 2021-03-25 14:06 | Operative Report (OR) ---
DATE OF PROCEDURE: 03/25/2021. PREOPERATIVE DIAGNOSES: Acute cholecystitis, cholelithiasis. POSTOPERATIVE DIAGNOSES: Acute cholecystitis, cholelithiasis. OPERATION: Laparoscopic cholecystectomy. SURGEON: Yovani Ignacio MD. CURATOR NATURAL HISTORY MUSEUM: Jasmin Quintana PA-C. ANESTHESIA: General. ESTIMATED BLOOD LOSS: About 20 mL. FINDINGS: Acute cholecystitis with significant inflammation with gallbladder wall edema and thickeni ng, confirmed diagnosis of acute cholecystitis with cholelithiasis. COMPLICATIONS: None. INDICATIONS FOR THE PROCEDURE: This is a 75-year-old female who was admitted to the hospital for acu te cholecystitis with cholangitis and common bile duct stone, cholelithiasis. The patient had an ERC P done yesterday and I recommended to do the laparoscopic cholecystectomy, possible open, possible ch olangiogram. I did talk to the patient about the benefit, risk, alternate procedure. I indicated th e risks may include, but not limited to, such as bleeding, infection, injury to other organs, incisio nal hernia, myocardial infarction, DVT, stroke, even . The patient understands and she signed i nformed consent and I answered all questions. DETAILS OF PROCEDURE: After we identified the patient and verified the procedure, we brought the pat ient to the OR, put the patient in the supine position on the OR table. The patient received SCD on bilateral legs to prevent DVT. Also, patient received 3.375 grams of Zosyn IV for prophylactic antib iotic. The patient received general anesthesia without difficulty. The abdomen was prepped and drap ed in routine sterile fashion. After timeout, I injected the local anesthesia by using 1% lidocaine mixed with 0.5% Marcaine just above the umbilicus, then I made a small incision just above umbilicus, opened fascia, opened peritoneum. Under direct vision, put a Chel trocar in, connected to CO2 to create pneumoperitoneum, flow rate at 6 liters per minute, pressure not more than 14 mmHg. Once we got a nice pneumoperitoneum, we put a camera in, looked around the abdomen, it shows gallblad shannan with significant inflammation and edema confirming the diagnosis of acute cholecystitis. Then, w e put another two 5 mm trocars on the right upper quadrant and one 11 trocar in the epigastric area. Once all trocars in, we used the grasper to hold the base of gallbladder, put in the direction to th e diaphragm and another grasper to hold the pouch of gallbladder, put a lateral to explore the triang le of Cal[place]. The cystic duct was identified and mobilized. I put two 10 mm metal clips on the proximal cystic no t and one on the distal cystic duct, then used a scissor for transection of cystic duct; rechecked, n o bile leak. The cystic artery was identified and mobilized. I put two 5 mm metal clips on the prox imal cystic artery and one on the distal cystic artery, then used a scissor for transection of cystic artery; rechecked, no active bleeding. Then, we used the Bovie to take down gallbladder from the li j carlos bed; rechecked, no active bleeding, no bile leak from liver bed. Then, we removed gallbladder th rough the catch bag and then during the procedure because the patient's gallbladder had significant d istention, we also used a large needle to decompress the gallbladder first. Once we removed gallbladder through the catch bag, then we reinserted the Chel trocar in, connected to CO2 to create pneumoperitoneum, again looked around the abdomen, no active bleeding, no bile leak from liver bed. Then, we removed all trocars under direct vision. No active bleeding from the troc ar site. Pneumoperitoneum was released, then I closed the umbilical incision fascial layer by using 0 Vicryl [id number] x2, closed subcutaneous layer by using 2-0 Vicryl interruptedly, closed skin by using 4-0 Vicryl continuous running, closed another 11 trocar site fascial layer by using 0 Vicry l [id number] x2, closed subcutaneous layer by using 2-0 Vicryl interruptedly, closed skin by usi ng 4-0 Vicryl interruptedly, closed another two 5 mm trocar site of skin only by using 4-0 Vicryl. T hen, we put the dressing on. The patient tolerated the procedure well. All instrument, needle and sponge counts were correct x2 a t the end of the case. The patient was transferred to recovery room in stable condition. The specim en was sent to pathology. After the procedure, I did talk to the patient about the OR finding and th e procedure we did, patient understands. front office assistant, Jasmin, was necessary for this procedure. Her role was to hold the camera, retract ion and exposure. Job ID: [id number]
--- NOTE | 2021-03-25 14:16 | Anesthesiology Progress Note ---
Date of Service March 25, 2021 Anesthesia Post Procedure Vital Signs Vital Signs: Temp Pulse Pulse Pulse Resp BP BP 03/25/21 14:05 70 17 135/71 03/25/21 13:55 69 17 137/67 03/25/21 13:45 70 17 136/70 03/25/21 13:35 70 17 130/65 03/25/21 13:28 37.3 C 71 19 121/66 03/25/21 10:53 37 C 68 17 137/76 03/25/21 07:45 36.7 C 67 15 128/70 03/25/21 06:58 36.7 C 62 18 122/68 03/25/21 04:00 36.5 C 58 L 20 131/69 03/24/21 23:03 61 03/24/21 23:01 57 L 03/24/21 23:00 36.5 C 59 L 18 126/68 03/24/21 19:55 37.1 C 56 L 16 124/69 03/24/21 18:30 66 17 125/59 L 03/24/21 17:30 65 19 126/65 03/24/21 17:02 64 14 139/64 03/24/21 16:45 67 18 139/64 03/24/21 16:35 37.6 C H 69 17 112/83 03/24/21 16:25 37.6 C H 71 19 114/64 03/24/21 16:15 67 14 114/68 03/24/21 16:05 70 21 119/67 03/24/21 15:56 37.3 C 72 12 111/64 Pulse Ox 03/25/21 14:05 94 03/25/21 13:55 98 03/25/21 13:45 98 03/25/21 13:35 97 03/25/21 13:28 97 03/25/21 10:53 96 03/25/21 07:45 96 03/25/21 06:58 96 03/25/21 04:00 96 03/24/21 23:03 03/24/21 23:01 03/24/21 23:00 97 03/24/21 19:55 97 03/24/21 18:30 94 03/24/21 17:30 95 03/24/21 17:02 94 03/24/21 16:45 96 03/24/21 16:35 96 03/24/21 16:25 100 03/24/21 16:15 100 03/24/21 16:05 100 03/24/21 15:56 100 Pain Intensity Abdomen: Pain Intensity: 2 Transfer of Care Handoff Completed per policy Notes Mental Status: alert / awake / arousable Patient Amnestic to Procedure: Yes Nausea / Vomiting: adequately controlled Pain: adequately controlled Airway Patency, RR, SpO2: stable & adequate BP & HR: stable & adequate Hydration State: stable & adequate Anesthetic Complications: no major complications apparent and Pt Satisfied with anesthetic care
[2021-03-25] MEDS ORDERED: LOSARTAN POTASSIUM 50 MG TAB PO SCH (14:32)
[2021-03-25] MEDS: MoRPHine SULFATE 2 MG/ML CARP IV PRN (16:12)
[2021-03-25] MEDS: ONDANSETRON INJ 2 MG/ML 2 ML VIAL IV PRN (16:12)
[2021-03-25] MEDS: SODIUM CHLORIDE 0.9% 1000ML 1,000 ML IV SCH (16:22)
[2021-03-25] MEDS: SPIRONOLACTONE 25 MG TAB PO SCH (16:24)
[2021-03-25] MEDS: TOCOPHERYL, DL-ALPHA 400 UNITS 180 MG CAP PO SCH (16:26)
[2021-03-25] MEDS ORDERED: oxyCODONE/ACETAMINOPHEN 5mg/325mg TAB PO PRN (16:27)
[2021-03-25] MEDS ORDERED: NON-FORMULARY MEDICATION (Potassium Gluconate 595 mg (99 mg) Tablet) PO SCH (16:30)
[2021-03-25] MEDS ORDERED: CALCIUM CARBONATE 1250MG TAB PO SCH (16:30)
[2021-03-25] MEDS ORDERED: Nursing to Pharmacy Communication SCH (17:00)
[2021-03-25] MEDS ORDERED: metFORMIN HCL 500 MG TAB PO SCH (17:00)
[2021-03-25] MEDS: POLYETHYLENE (MIRALAX) 17 GM PACK PO SCH (20:17)
[2021-03-25] MEDS ORDERED: ATORVASTATIN 40 MG TAB PO SCH (21:00)
[2021-03-25] MEDS: DOCUSATE SODIUM 100 MG CAP PO SCH (21:03)
[2021-03-26] MEDS: SODIUM CHLORIDE 0.9% 1000ML 1,000 ML IV SCH (04:55)
[2021-03-26] MEDS: MoRPHine SULFATE 2 MG/ML CARP IV PRN (05:01)
[2021-03-26] MEDS: PIPERACILLIN/TAZOBACTAM 3.375 GM in DEXTROSE 5% 100 ML IV SCH ×3 (06:21→22:49)
[2021-03-26 06:22] LABS: Eosinophils # (auto) 0.06 K/uL (0-0.5); Eosinophils % (auto) 0.8 %; Hematocrit (blood only) 32.9 % (37-47); Hemoglobin 10.7 g/dL (12.0-16.0); Immature Granulocytes # (auto) 0.01 K/uL (0.00-0.02); Immature Granulocytes % (auto) 0.1 %; Lymphocytes # (auto) 0.71 K/uL (1.2-3.4); Lymphocytes % (auto) 9.4 %; Mean Corpuscular Hemoglobin 30.2 pg (25-34); Mean Corpuscular Hgb Conc 32.5 g/dL (32-36); Mean Corpuscular Volume 92.9 fL (80-100); Mean Platelet Volume 10.9 fL (7.4-10.4); Monocytes % (auto) 6.6 %; Neutrophils # (auto) 6.24 K/uL (1.4-6.5); Neutrophils % (auto) 83.1 %; Platelet Count 170 K/uL (130-400); RDW Coefficient of Variation 14.4 % (11.5-14.5); RDW Standard Deviation 48.8 fL (36.4-46.3); Red Blood Count 3.54 M/uL (4.2-5.4); White Blood Count 7.52 K/uL (4.8-10.8)
[2021-03-26] MEDS: LEVOTHYROXINE SODIUM 75 MCG TABLET PO SCH (06:22)
[2021-03-26 07:09] LABS: Albumin Globulin Ratio 1.2 (0.9-2); Albumin Level 2.9 gm/dl (3.4-5.0); BUN Creatinine Ratio 13.7 (10-20); Bilirubin,Total 2.1 mg/dl (0.2-1.0); Calcium 7.8 mg/dl (8.5-10.1); Creatinine Clr Calc Pharmacy 46.4 ml/min; Est GFR (African American) 92.1 ml/min; Est GFR (Non-African American) 79.4 ml/min; Globulin 2.5 gm/dl (2.5-4.0); Potassium 3.8 mmol/L (3.5-5.1); Total Protein 5.4 gm/dl (6.0-8.3)
[2021-03-26] MEDS: INSULIN GLARGINE SOLOSTAR 100 UNITS/ML 3 ML PEN SC SCH ×2 (08:07→21:34)
[2021-03-26] MEDS: buPROPion SR 150 MG TABCR PO SCH ×2 (08:07→21:28)
[2021-03-26] MEDS: METOPROLOL SUCC 50MG EXT REL TAB PO SCH (08:07)
[2021-03-26] MEDS: METOPROLOL SUCC 25MG EXT REL TAB PO SCH (08:07)
[2021-03-26] MEDS: POLYETHYLENE (MIRALAX) 17 GM PACK PO SCH (08:08)
[2021-03-26] MEDS: MULTIVITAMIN TAB PO SCH (08:08)
[2021-03-26] MEDS: DOCUSATE SODIUM 100 MG CAP PO SCH ×2 (08:08→21:29)
[2021-03-26] MEDS: PANTOprazole 40 MG TAB PO SCH (08:09)
[2021-03-26] MEDS: INSULIN ASPART PER UNIT SC SCH ×4 (08:10→21:38)
[2021-03-26] MEDS ORDERED: CALCIUM GLUCONATE 10% 1,000 MG in SODIUM CHLORIDE 0.9% 50 ML IV ONE (08:57)
--- NOTE | 2021-03-26 09:05 | Hospitalist Progress Note ---
Date of Service March 26, 2021 Assessment & Plan (1) Choledocholithiasis with acute cholecystitis with obstruction: Plan: 75yo female with history of HTN, HLP, DM and Ulcerative colitis presenting with epigastric/RUQ abdominal pain ongoing x 1 day. Previously with known cholelithiasis, seen by Dr Alexis in past. Of note, in patient with UC, concerns for PSC/PBC but per GI not appearing as such on ERCP and would defer to regular GI provider for possible need for biopsy in future at their discretion CT AP on admission with intrahepatic biliary ductal dilatation concerning for choledocholithiasis vs pancreatic head mass. GI consulted MRCP 03/24, followed by ERCP by Dr Maxwell with findings consistent with choledocholithiasis and cholangitis * stone removal and biliary sphincterotomy and balloon extraction done, two biliary stents placed into CBD. One proph pancreatic stent placed and indomethacin given to decrease risk post-ERCP pancreatitis * Avoid ASA/NSAIDs x 5 days * Will need abx x 2 weeks, transition to Augmentin in AM * Repeat ERCP 6 weeks for stent removal General surgery consulted POD #1 s/p lap josh. Advanced diet as tolerated -- tolerating full liquids, adv per surgery AMbulation encouraged -- passing more gas, no BM today Pain control -- got dose morphine this morning, educated to try PO next time if needed for longer effect Antiemetics prn -- has not needed WBC now wnl 7.5k from max 32.7K on 03/24 Blood cultures NGTD Afebrile since low grade temp on admission IVF changed to NSS from 1/2NSS and Na 139 on AM labs (prior 129) LFTs improving Advance diet as tolerated, monitor labs in AM. Possible d/c if stable (2) Abdominal pain: Plan: improved from prior -- 2nd to above medications available prn -- morphine for post-op pain, PO available +BS and passing gas, encouraging ambulation and has been doing such in the room (3) Ulcerative colitis: Plan: Chronic -Hold Balsalazide for now -- ok to resume per GI when no longer NPO. Discussed with patient if possible to have someone bring this medication in for her -- she would like to wait until she gets home (4) Hypertension: Plan: elevations 2nd to pain/holding home meds, currently 175/80 Spironolactone resumed, will hold losartan but plan to resume in AM Continue metoprolol (5) Hyperlipemia: Plan: Chronic. Atorvastatin when increased PO (6) Hypothyroidism: Plan: Chronic -Continue Synthroid 75mcg po daily (7) Diabetes type 2, controlled: Plan: Chronic. Elevated blood sugar on admit at 214. Fairly well controlled with [id number]=7.5 on 09/18/20, repeat improved to 7.1 -Hold Metformin -Lantus 3u BID and ISS - patient insulin naive, NPO -Goal blood sugar 100 - 140 BSGs accepatble COntinue to monitor (8) Depression: Plan: Chronic -Continue Bupropion 150mg po BID (9) Esophageal reflux: Plan: Chronic -Continue Protonix 40mg po daily Plan: DVT Proph SCDs for now, continued ambulation and she has been doing such. No calf edema/pain * discussed with Dr. Ignacio last evening and he stated he would order DVT prophylaxis this morning but does not appear any has been ordered at this point, * contacting surgery to determine choice of DVT prophylaxis Admission and Anticipated Discharge Date Admission Date: March 24, 2021 Supervising Physician Co-Signing Physician Notes PA Supervision Note: I did not personally see or examine the patient today, but I verified all dykes points of DANIEL Gray's assessment and plan with the following exceptions/additions: None Subjective patient evaluated this morning doing alright, pain improved but did get morphine this morning this is her first surgery and pain around incisions. seen by general surgery and plans for d/c tomorrow passing more gas but no BM. tolerating diet encouraged ambulation. utilized fiber at home but holding off at this time and discussed wanting to get bowels moving prior to discharge. Active BS and can hold off on miralax at this time and monitor but if no BM by this evening would encourage use. She wants to hold off on having anyone bring her home UC medication as she is hoping to go home tomorrow and no increased issues reported at this time. no fever, chills, chest pain, shortness of breath, nausea at this time. will need repeat ERCP in 6 wks for stent removal, to be arranged by [facility] GI provider. Review of Systems Review of Systems: All systems reviewed & are unremarkable except as noted in HPI & below Physical Exam Constitutional: well developed, well nourished, cooperative and comfortable; no acute distress Eyes: + anicteric sclerae and PERRL ENMT: mmm Neck: normal visual inspection and trachea midline Respiratory: normal respiratory effort, lungs clear to auscultation Cardiovascular: RRR, no murmur, no edema Gastrointestinal (Abdomen): +BS throughout, soft, appropriately tender to palpation, no guarding/rigidity, RUQ tenderness mod, epigastric tenderness mild Musculoskeletal: moves all extremities, ambulating in room Skin: no rashes, warm and dry no jaundice Neurologic: PERRL, EOMI, accommodation nl, no face palsy, no dysarthria Psychiatric: Orientation: alert and oriented x 3 Lymphatic: no cervical or axillary lymphadenopathy Results & Data Results & Data ([facility]) Vital Signs (Past 12 Hours) Vital Signs Temp Pulse Pulse Resp BP Pulse Ox 03/26/21 07:55 37.2 C 70 16 175/80 H 94 03/26/21 03:00 36.6 C 70 20 132/70 93 03/25/21 23:12 73 03/25/21 23:00 36.9 C 76 20 145/74 H 96 Laboratory Results 03/26/21 03/26/21 03/26/21 Range/Units 07:26 05:44 05:44 WBC 7.52 (4.8-10.8) K/uL RBC 3.54 L (4.2-5.4) M/uL Hgb 10.7 L (12.0-16.0) g/dL Hct 32.9 L (37-47) % MCV 92.9 (80-100) fL MCH 30.2 (25-34) pg MCHC 32.5 (32-36) g/dL RDW Std Deviation 48.8 H (36.4-46.3) fL RDW Coeff of Kaylen 14.4 (11.5-14.5) % Plt Count 170 (130-400) K/uL MPV 10.9 H (7.4-10.4) fL Immature Gran % (Auto) 0.1 % Neut % (Auto) 83.1 % Lymph % (Auto) 9.4 % [place] % (Auto) 6.6 % Eos % (Auto) 0.8 % Baso % (Auto) 0.0 % Neut # (Auto) 6.24 (1.4-6.5) K/uL Lymph # (Auto) 0.71 L (1.2-3.4) K/uL [place] # (Auto) 0.50 (0.11-0.59) K/uL Eos # (Auto) 0.06 (0-0.5) K/uL Baso # (Auto) 0.00 (0-0.2) K/uL Immature Gran # (Auto) 0.01 (0.00-0.02) K/uL Sodium 139 D (136-145) mmol/L Potassium 3.8 (3.5-5.1) mmol/L Chloride 111 H (98-107) mmol/L Carbon Dioxide 21 (21-32) mmol/L Anion Gap 7 (3-11) BUN 10 (6-23) mg/dl Creatinine 0.73 (0.6-1.2) mg/dl Est Cr Clr Drug Dosing 46.4 ml/min Est GFR ( Amer) 92.1 ml/min Est GFR (Non-Af Amer) 79.4 ml/min BUN/Creatinine Ratio 13.7 (10-20) Glucose 126 H (70-99) mg/dl POC Glucose 107 H (70-99) mg/dl Calcium 7.8 L (8.5-10.1) mg/dl Total Bilirubin 2.1 H (0.2-1.0) mg/dl AST 137 H (13-39) U/L ALT 171 H (7-52) U/L Alkaline Phosphatase 170 H (34-104) U/L Total Protein 5.4 L (6.0-8.3) gm/dl Albumin 2.9 L (3.4-5.0) gm/dl Globulin 2.5 (2.5-4.0) gm/dl Albumin/Globulin Ratio 1.2 (0.9-2) 03/25/21 03/25/21 03/25/21 Range/Units 20:14 16:10 13:54 WBC (4.8-10.8) K/uL RBC (4.2-5.4) M/uL Hgb (12.0-16.0) g/dL Hct (37-47) % MCV (80-100) fL MCH (25-34) pg MCHC (32-36) g/dL RDW Std Deviation (36.4-46.3) fL RDW Coeff of Kaylen (11.5-14.5) % Plt Count (130-400) K/uL MPV (7.4-10.4) fL Immature Gran % (Auto) % Neut % (Auto) % Lymph % (Auto) % [place] % (Auto) % Eos % (Auto) % Baso % (Auto) % Neut # (Auto) (1.4-6.5) K/uL Lymph # (Auto) (1.2-3.4) K/uL [place] # (Auto) (0.11-0.59) K/uL Eos # (Auto) (0-0.5) K/uL Baso # (Auto) (0-0.2) K/uL Immature Gran # (Auto) (0.00-0.02) K/uL Sodium (136-145) mmol/L Potassium (3.5-5.1) mmol/L Chloride (98-107) mmol/L Carbon Dioxide (21-32) mmol/L Anion Gap (3-11) BUN (6-23) mg/dl Creatinine (0.6-1.2) mg/dl Est Cr Clr Drug Dosing ml/min Est GFR ( Amer) ml/min Est GFR (Non-Af Amer) ml/min BUN/Creatinine Ratio (10-20) Glucose (70-99) mg/dl POC Glucose 214 H 147 H 125 H (70-99) mg/dl Calcium (8.5-10.1) mg/dl Total Bilirubin (0.2-1.0) mg/dl AST (13-39) U/L ALT (7-52) U/L Alkaline Phosphatase (34-104) U/L Total Protein (6.0-8.3) gm/dl Albumin (3.4-5.0) gm/dl Globulin (2.5-4.0) gm/dl Albumin/Globulin Ratio (0.9-2) PG Care Time/CCT Total # of Minutes Spent Total Time Spent with Patient: Total time spent is greater than 50% in coordination of care (as documented) at patient's floor/unit and/or counseling patient: Coding Level of Care Code 07281 Subseq Hosp Care Lvl 3 Diagnoses Choledocholithiasis with acute cholecystitis with obstruction K80.43 Abdominal pain R10.9 Ulcerative colitis K51.90 Hypertension I10 Hyperlipemia E78.5 Hypothyroidism E03.9 Diabetes type 2, controlled E11.9 Depression F32.9 Esophageal reflux K21.9
--- NOTE | 2021-03-26 12:27 | Surgery Progress Note ---
Date of Service March 26, 2021 Assessment & Plan (1) Abdominal pain: Plan: resolved, now postop pain (2) Choledocholithiasis: Plan: POD # 2 s/p ERCP with biliary stent (3) Leukocytosis: Plan: Resolved (4) Transaminitis: Plan: Improving (5) Elevated bilirubin: Plan: improving Plan: POD # 1 s/p laparoscopic cholecystectomy, POD # 2 s/p ERCP with biliary stent placement for choledocholithiasis and cholangitis -afebrile, vss - leukocytosis resolved - t. bili and lfts improving - abdominal pain postop controlled - no n/v Plan: continue PO Pain management as needed continue Broad-spectrum antibiotic coverage for total of 14 days okay to advance diet from surgical prospective Encouraged ambulation and OOB to chair incentive spirometry SCDs repeat labs in am Avoid NSAIDs for 5 days will need Repeat ERCP for stent removal in [address] Ignacio has seen patient and agrees with above. Admission and Anticipated Discharge Date Admission Date: March 24, 2021 Subjective sore at incision sites, preop pain resolved no nausea or vomiting tolerated full liquids ambulating to bathroom, not hallway Physical Exam Constitutional: WD/WN, vitals as above no acute distress and not ill appearing Neck: normal visual inspection and trachea midline Respiratory: normal respiratory effort; no respiratory distress, no labored breathing and no retractions Gastrointestinal (Abdomen): Inspection/Auscultation: abdomen normal to inspection and + abdominal surgical incision (covered with dry dressings); abdomen not distended Percussion/Palpation: + abdomen tender (mild at inc ision sites, appropriate postop) and abdomen soft; no guarding and abdomen not rigid Skin: no rashes, warm and dry no jaundice Psychiatric: Orientation: alert and oriented x 3 Results & Data ([facility]) Vital Signs (Past 12 Hours) Vital Signs Temp Pulse Resp BP Pulse Ox 03/26/21 07:55 37.2 C 70 16 175/80 H 94 03/26/21 03:00 36.6 C 70 20 132/70 93 Laboratory Results 03/26/21 03/26/21 03/26/21 Range/Units 11:37 07:26 05:44 WBC (4.8-10.8) K/uL RBC (4.2-5.4) M/uL Hgb (12.0-16.0) g/dL Hct (37-47) % MCV (80-100) fL MCH (25-34) pg MCHC (32-36) g/dL RDW Std Deviation (36.4-46.3) fL RDW Coeff of Kaylen (11.5-14.5) % Plt Count (130-400) K/uL MPV (7.4-10.4) fL Immature Gran % (Auto) % Neut % (Auto) % Lymph % (Auto) % [place] % (Auto) % Eos % (Auto) % Baso % (Auto) % Neut # (Auto) (1.4-6.5) K/uL Lymph # (Auto) (1.2-3.4) K/uL [place] # (Auto) (0.11-0.59) K/uL Eos # (Auto) (0-0.5) K/uL Baso # (Auto) (0-0.2) K/uL Immature Gran # (Auto) (0.00-0.02) K/uL Sodium (136-145) mmol/L Potassium (3.5-5.1) mmol/L Chloride (98-107) mmol/L Carbon Dioxide (21-32) mmol/L Anion Gap (3-11) BUN (6-23) mg/dl Creatinine (0.6-1.2) mg/dl Est Cr Clr Drug Dosing ml/min Est GFR ( Amer) ml/min Est GFR (Non-Af Amer) ml/min BUN/Creatinine Ratio (10-20) Glucose (70-99) mg/dl POC Glucose 163 H 107 H (70-99) mg/dl Calcium (8.5-10.1) mg/dl Total Bilirubin (0.2-1.0) mg/dl AST (13-39) U/L ALT (7-52) U/L Alkaline Phosphatase (34-104) U/L Total Protein (6.0-8.3) gm/dl Albumin (3.4-5.0) gm/dl Globulin (2.5-4.0) gm/dl Albumin/Globulin Ratio (0.9-2) Lipase 951 H (11-82) U/L 03/26/21 03/26/21 03/25/21 Range/Units 05:44 05:44 20:14 WBC 7.52 (4.8-10.8) K/uL RBC 3.54 L (4.2-5.4) M/uL Hgb 10.7 L (12.0-16.0) g/dL Hct 32.9 L (37-47) % MCV 92.9 (80-100) fL MCH 30.2 (25-34) pg MCHC 32.5 (32-36) g/dL RDW Std Deviation 48.8 H (36.4-46.3) fL RDW Coeff of Kaylen 14.4 (11.5-14.5) % Plt Count 170 (130-400) K/uL MPV 10.9 H (7.4-10.4) fL Immature Gran % (Auto) 0.1 % Neut % (Auto) 83.1 % Lymph % (Auto) 9.4 % [place] % (Auto) 6.6 % Eos % (Auto) 0.8 % Baso % (Auto) 0.0 % Neut # (Auto) 6.24 (1.4-6.5) K/uL Lymph # (Auto) 0.71 L (1.2-3.4) K/uL [place] # (Auto) 0.50 (0.11-0.59) K/uL Eos # (Auto) 0.06 (0-0.5) K/uL Baso # (Auto) 0.00 (0-0.2) K/uL Immature Gran # (Auto) 0.01 (0.00-0.02) K/uL Sodium 139 D (136-145) mmol/L Potassium 3.8 (3.5-5.1) mmol/L Chloride 111 H (98-107) mmol/L Carbon Dioxide 21 (21-32) mmol/L Anion Gap 7 (3-11) BUN 10 (6-23) mg/dl Creatinine 0.73 (0.6-1.2) mg/dl Est Cr Clr Drug Dosing 46.4 ml/min Est GFR ( Amer) 92.1 ml/min Est GFR (Non-Af Amer) 79.4 ml/min BUN/Creatinine Ratio 13.7 (10-20) Glucose 126 H (70-99) mg/dl POC Glucose 214 H (70-99) mg/dl Calcium 7.8 L (8.5-10.1) mg/dl Total Bilirubin 2.1 H (0.2-1.0) mg/dl AST 137 H (13-39) U/L ALT 171 H (7-52) U/L Alkaline Phosphatase 170 H (34-104) U/L Total Protein 5.4 L (6.0-8.3) gm/dl Albumin 2.9 L (3.4-5.0) gm/dl Globulin 2.5 (2.5-4.0) gm/dl Albumin/Globulin Ratio 1.2 (0.9-2) Lipase (11-82) U/L 03/25/21 03/25/21 Range/Units 16:10 13:54 WBC (4.8-10.8) K/uL RBC (4.2-5.4) M/uL Hgb (12.0-16.0) g/dL Hct (37-47) % MCV (80-100) fL MCH (25-34) pg MCHC (32-36) g/dL RDW Std Deviation (36.4-46.3) fL RDW Coeff of Kaylen (11.5-14.5) % Plt Count (130-400) K/uL MPV (7.4-10.4) fL Immature Gran % (Auto) % Neut % (Auto) % Lymph % (Auto) % [place] % (Auto) % Eos % (Auto) % Baso % (Auto) % Neut # (Auto) (1.4-6.5) K/uL Lymph # (Auto) (1.2-3.4) K/uL [place] # (Auto) (0.11-0.59) K/uL Eos # (Auto) (0-0.5) K/uL Baso # (Auto) (0-0.2) K/uL Immature Gran # (Auto) (0.00-0.02) K/uL Sodium (136-145) mmol/L Potassium (3.5-5.1) mmol/L Chloride (98-107) mmol/L Carbon Dioxide (21-32) mmol/L Anion Gap (3-11) BUN (6-23) mg/dl Creatinine (0.6-1.2) mg/dl Est Cr Clr Drug Dosing ml/min Est GFR ( Amer) ml/min Est GFR (Non-Af Amer) ml/min BUN/Creatinine Ratio (10-20) Glucose (70-99) mg/dl POC Glucose 147 H 125 H (70-99) mg/dl Calcium (8.5-10.1) mg/dl Total Bilirubin (0.2-1.0) mg/dl AST (13-39) U/L ALT (7-52) U/L Alkaline Phosphatase (34-104) U/L Total Protein (6.0-8.3) gm/dl Albumin (3.4-5.0) gm/dl Globulin (2.5-4.0) gm/dl Albumin/Globulin Ratio (0.9-2) Lipase (11-82) U/L (1) Leukocytosis Leukocytosis type: unspecified Qualified Code(s): D72.829 - Elevated white blood cell count, unspecified
[2021-03-26] MEDS ORDERED: LACTATED RINGER'S 1,000 ML IV SCH (13:45)
[2021-03-26] MEDS: TOCOPHERYL, DL-ALPHA 400 UNITS 180 MG CAP PO SCH (17:53)
[2021-03-26] MEDS ORDERED: LOSARTAN POTASSIUM 50 MG TAB PO ONE (18:15)
[2021-03-26] MEDS: HEPARIN SOD 5,000 UNIT/0.5 ML VIAL SQ SCH (21:31)
[2021-03-27] MEDS: PIPERACILLIN/TAZOBACTAM 3.375 GM in DEXTROSE 5% 100 ML IV SCH (05:52)
[2021-03-27] MEDS: LEVOTHYROXINE SODIUM 75 MCG TABLET PO SCH (05:58)
[2021-03-27 07:40] LABS: Hematocrit (blood only) 33.7 % (37-47); Hemoglobin 11.1 g/dL (12.0-16.0); Mean Corpuscular Hemoglobin 29.7 pg (25-34); Mean Corpuscular Hgb Conc 32.9 g/dL (32-36); Mean Corpuscular Volume 90.1 fL (80-100); Mean Platelet Volume 10.8 fL (7.4-10.4); Platelet Count 190 K/uL (130-400); RDW Coefficient of Variation 14.5 % (11.5-14.5); Red Blood Count 3.74 M/uL (4.2-5.4); White Blood Count 7.86 K/uL (4.8-10.8)
--- NOTE | 2021-03-27 07:49 | Hospitalist Progress Note ---
Date of Service March 27, 2021 Assessment & Plan Admission and Anticipated Discharge Date Admission Date: March 24, 2021 Results & Data Results & Data ([facility]) Vital Signs (Past 12 Hours) Vital Signs Temp Pulse Pulse Resp BP Pulse Ox 03/27/21 07:32 65 03/27/21 07:26 37.1 C 66 16 175/87 H 92 03/27/21 04:00 36.8 C 66 20 175/89 H 94 03/26/21 22:54 36.8 C 67 20 187/80 H 95 03/26/21 22:45 75 Laboratory Results 03/27/21 03/27/21 03/27/21 Range/Units 07:42 07:22 07:22 WBC 7.86 (4.8-10.8) K/uL RBC 3.74 L (4.2-5.4) M/uL Hgb 11.1 L (12.0-16.0) g/dL Hct 33.7 L (37-47) % MCV 90.1 (80-100) fL MCH 29.7 (25-34) pg MCHC 32.9 (32-36) g/dL RDW Std Deviation 48.0 H (36.4-46.3) fL RDW Coeff of Kaylen 14.5 (11.5-14.5) % Plt Count 190 (130-400) K/uL MPV 10.8 H (7.4-10.4) fL Sodium Pending Potassium Pending Chloride Pending Carbon Dioxide Pending Anion Gap Pending BUN Pending Creatinine Pending Est Cr Clr Drug Dosing Pending Est GFR ( Amer) Pending Est GFR (Non-Af Amer) Pending BUN/Creatinine Ratio Pending Glucose Pending POC Glucose 101 H (70-99) mg/dl Calcium Pending Total Bilirubin Pending Direct Bilirubin Pending AST Pending ALT Pending Alkaline Phosphatase Pending Total Protein Pending Albumin Pending Lipase (11-82) U/L 03/26/21 03/26/21 03/26/21 Range/Units 20:18 16:26 11:37 WBC (4.8-10.8) K/uL RBC (4.2-5.4) M/uL Hgb (12.0-16.0) g/dL Hct (37-47) % MCV (80-100) fL MCH (25-34) pg MCHC (32-36) g/dL RDW Std Deviation (36.4-46.3) fL RDW Coeff of Kaylen (11.5-14.5) % Plt Count (130-400) K/uL MPV (7.4-10.4) fL Sodium Potassium Chloride Carbon Dioxide Anion Gap BUN Creatinine Est Cr Clr Drug Dosing Est GFR ( Amer) Est GFR (Non-Af Amer) BUN/Creatinine Ratio Glucose POC Glucose 205 H 126 H 163 H (70-99) mg/dl Calcium Total Bilirubin Direct Bilirubin AST ALT Alkaline Phosphatase Total Protein Albumin Lipase (11-82) U/L 03/26/21 Range/Units 05:44 WBC (4.8-10.8) K/uL RBC (4.2-5.4) M/uL Hgb (12.0-16.0) g/dL Hct (37-47) % MCV (80-100) fL MCH (25-34) pg MCHC (32-36) g/dL RDW Std Deviation (36.4-46.3) fL RDW Coeff of Kaylen (11.5-14.5) % Plt Count (130-400) K/uL MPV (7.4-10.4) fL Sodium Potassium Chloride Carbon Dioxide Anion Gap BUN Creatinine Est Cr Clr Drug Dosing Est GFR ( Amer) Est GFR (Non-Af Amer) BUN/Creatinine Ratio Glucose POC Glucose (70-99) mg/dl Calcium Total Bilirubin Direct Bilirubin AST ALT Alkaline Phosphatase Total Protein Albumin Lipase 951 H (11-82) U/L PG Care Time/CCT Total # of Minutes Spent Total Time Spent with Patient: Total time spent is greater than 50% in coordination of care (as documented) at patient's floor/unit and/or counseling patient: Coding
[2021-03-27 08:09] LABS: Albumin Level 2.9 gm/dl (3.4-5.0); BUN Creatinine Ratio 8.8 (10-20); Bilirubin Direct 0.6 mg/dl (0-0.2); Bilirubin,Total 1.1 mg/dl (0.2-1.0); Calcium 8.1 mg/dl (8.5-10.1); Creatinine Clr Calc Pharmacy 49.8 ml/min; Est GFR (African American) 97.8 ml/min; Est GFR (Non-African American) 84.4 ml/min; Potassium 3.7 mmol/L (3.5-5.1); Total Protein 5.4 gm/dl (6.0-8.3)
[2021-03-27] MEDS ORDERED: LOSARTAN POTASSIUM 50 MG TAB PO SCH (09:00)
[2021-03-27] MEDS: buPROPion SR 150 MG TABCR PO SCH (09:04)
[2021-03-27] MEDS: HEPARIN SOD 5,000 UNIT/0.5 ML VIAL SQ SCH (09:05)
[2021-03-27] MEDS: DOCUSATE SODIUM 100 MG CAP PO SCH (09:05)
[2021-03-27] MEDS: INSULIN GLARGINE SOLOSTAR 100 UNITS/ML 3 ML PEN SC SCH (09:05)
[2021-03-27] MEDS: METOPROLOL SUCC 50MG EXT REL TAB PO SCH (09:06)
[2021-03-27] MEDS: PANTOprazole 40 MG TAB PO SCH (09:06)
[2021-03-27] MEDS: METOPROLOL SUCC 25MG EXT REL TAB PO SCH (09:06)
[2021-03-27] MEDS: MULTIVITAMIN TAB PO SCH (09:06)
[2021-03-27] MEDS: SPIRONOLACTONE 25 MG TAB PO SCH (09:07)
[2021-03-27] MEDS: POLYETHYLENE (MIRALAX) 17 GM PACK PO SCH (09:07)
--- NOTE | 2021-03-27 09:10 | Surgery Progress Note ---
Date of Service March 27, 2021 Assessment & Plan (1) Abdominal pain: Plan: resolved, now postop pain soreness, controlled (2) Choledocholithiasis: Plan: POD # 3 s/p ERCP with biliary stent T. bili down to 1.1, LFTs improved (3) Leukocytosis: Plan: Resolved (4) Transaminitis: Plan: Improving (5) Elevated bilirubin: Plan: improving down to 1.1 today Plan: POD # 2 s/p laparoscopic cholecystectomy, POD # 3 s/p ERCP with biliary stent placement for choledocholithiasis and cholangitis -afebrile, vss - leukocytosis resolved - t. bili and lfts continue to improve - abdominal pain postop controlled - no n/v Plan: Doing well from surgical standpoint for discharge discharge instructions reviewed and will be provided Rx for Percocet q 6 hours prn pain sent to pharmacy will need abx for cholangitis as recommended by GI service follow-up surgery office in [address] Ignacio was present during my evaluation and examination and agrees with above. Admission and Anticipated Discharge Date Admission Date: March 24, 2021 Subjective sleeping upon entering room feeling better today pain is better today, soreness at incisions controlled with pain medication tolerated advanced diet no n,v urinating without difficulty ambulating Physical Exam Constitutional: well developed and well nourished; no acute distress and not ill appearing Neck: normal visual inspection and trachea midline Respiratory: normal respiratory effort; no respiratory distress, no labored breathing and no retractions Gastrointestinal (Abdomen): Inspection/Auscultation: abdomen normal to inspection and + abdominal surgical incision (covered with dry dressings, clean); abdomen not distended Percussion/Palpation: + abdomen tender (very mild at incision sites) and abdomen soft; no guarding and abdomen not rigid Skin: no rashes, warm and dry no jaundice Psychiatric: Orientation: alert and oriented x 3 Results & Data ([facility]) Vital Signs (Past 12 Hours) Vital Signs Temp Pulse Pulse Resp BP Pulse Ox 03/27/21 07:32 65 03/27/21 07:26 37.1 C 66 16 175/87 H 92 03/27/21 04:00 36.8 C 66 20 175/89 H 94 03/26/21 22:54 36.8 C 67 20 187/80 H 95 03/26/21 22:45 75 Laboratory Results 03/27/21 03/27/21 03/27/21 Range/Units 07:42 07:22 07:22 WBC 7.86 (4.8-10.8) K/uL RBC 3.74 L (4.2-5.4) M/uL Hgb 11.1 L (12.0-16.0) g/dL Hct 33.7 L (37-47) % MCV 90.1 (80-100) fL MCH 29.7 (25-34) pg MCHC 32.9 (32-36) g/dL RDW Std Deviation 48.0 H (36.4-46.3) fL RDW Coeff of Kaylen 14.5 (11.5-14.5) % Plt Count 190 (130-400) K/uL MPV 10.8 H (7.4-10.4) fL Sodium 135 L (136-145) mmol/L Potassium 3.7 (3.5-5.1) mmol/L Chloride 106 (98-107) mmol/L Carbon Dioxide 22 (21-32) mmol/L Anion Gap 7 (3-11) BUN 6 (6-23) mg/dl Creatinine 0.68 (0.6-1.2) mg/dl Est Cr Clr Drug Dosing 49.8 ml/min Est GFR ( Amer) 97.8 ml/min Est GFR (Non-Af Amer) 84.4 ml/min BUN/Creatinine Ratio 8.8 L (10-20) Glucose 110 H (70-99) mg/dl POC Glucose 101 H (70-99) mg/dl Calcium 8.1 L (8.5-10.1) mg/dl Total Bilirubin 1.1 H (0.2-1.0) mg/dl Direct Bilirubin 0.6 H (0-0.2) mg/dl AST 69 H (13-39) U/L ALT 125 H (7-52) U/L Alkaline Phosphatase 202 H (34-104) U/L Total Protein 5.4 L (6.0-8.3) gm/dl Albumin 2.9 L (3.4-5.0) gm/dl Lipase (11-82) U/L 03/26/21 03/26/21 03/26/21 Range/Units 20:18 16:26 11:37 WBC (4.8-10.8) K/uL RBC (4.2-5.4) M/uL Hgb (12.0-16.0) g/dL Hct (37-47) % MCV (80-100) fL MCH (25-34) pg MCHC (32-36) g/dL RDW Std Deviation (36.4-46.3) fL RDW Coeff of Kaylen (11.5-14.5) % Plt Count (130-400) K/uL MPV (7.4-10.4) fL Sodium (136-145) mmol/L Potassium (3.5-5.1) mmol/L Chloride (98-107) mmol/L Carbon Dioxide (21-32) mmol/L Anion Gap (3-11) BUN (6-23) mg/dl Creatinine (0.6-1.2) mg/dl Est Cr Clr Drug Dosing ml/min Est GFR ( Amer) ml/min Est GFR (Non-Af Amer) ml/min BUN/Creatinine Ratio (10-20) Glucose (70-99) mg/dl POC Glucose 205 H 126 H 163 H (70-99) mg/dl Calcium (8.5-10.1) mg/dl Total Bilirubin (0.2-1.0) mg/dl Direct Bilirubin (0-0.2) mg/dl AST (13-39) U/L ALT (7-52) U/L Alkaline Phosphatase (34-104) U/L Total Protein (6.0-8.3) gm/dl Albumin (3.4-5.0) gm/dl Lipase (11-82) U/L 03/26/21 Range/Units 05:44 WBC (4.8-10.8) K/uL RBC (4.2-5.4) M/uL Hgb (12.0-16.0) g/dL Hct (37-47) % MCV (80-100) fL MCH (25-34) pg MCHC (32-36) g/dL RDW Std Deviation (36.4-46.3) fL RDW Coeff of Kaylen (11.5-14.5) % Plt Count (130-400) K/uL MPV (7.4-10.4) fL Sodium (136-145) mmol/L Potassium (3.5-5.1) mmol/L Chloride (98-107) mmol/L Carbon Dioxide (21-32) mmol/L Anion Gap (3-11) BUN (6-23) mg/dl Creatinine (0.6-1.2) mg/dl Est Cr Clr Drug Dosing ml/min Est GFR ( Amer) ml/min Est GFR (Non-Af Amer) ml/min BUN/Creatinine Ratio (10-20) Glucose (70-99) mg/dl POC Glucose (70-99) mg/dl Calcium (8.5-10.1) mg/dl Total Bilirubin (0.2-1.0) mg/dl Direct Bilirubin (0-0.2) mg/dl AST (13-39) U/L ALT (7-52) U/L Alkaline Phosphatase (34-104) U/L Total Protein (6.0-8.3) gm/dl Albumin (3.4-5.0) gm/dl Lipase 951 H (11-82) U/L (1) Leukocytosis Leukocytosis type: unspecified Qualified Code(s): D72.829 - Elevated white blood cell count, unspecified
[2021-03-27] MEDS: INSULIN ASPART PER UNIT SC SCH ×2 (09:11→12:10)
--- NOTE | 2021-03-27 13:18 | Discharge Summary ---
Date of Service March 27, 2021 Admission HPI Per Admitting Provider Tammy Maciel is a 75yo female with history of DM, HTN, HLP, UC presenting with abdominal pain. Patient developed periumbilical abdominal pain earlier today. She reports severe squeezing/pressure pain, 9/10 in severity, constant, located in periumbilical and epigastric region. She has some associated nausea with two episodes of non-bloody/non-bilious emesis. She denies fever, chills, chest pain, cough, SOB, diarrhea. Patient has known history of gallstones which have caused no issue until now. She was evaluated in the past by surgery for possible cholecystectomy. No additional complaints at this time. In the ER patient afebrile, HD stable, NAD ER Course: Zosyn, Zofran, NSS Admission Exam Per Admitting Provider General: patient resting comfortably, NAD, non-toxic in appearance, AA&O x 4 Skin: warm, dry, intact, no rashes or lesions HEENT: NC/AT, PERRL, EOMI, anicteric sclera, conjunctiva without injection, external ear normal to inspection and nontender, nares patent, moist mucus membranes, dentition intact, no oropharyngeal lesions, neck supple, trachea midline, no LAD, no thyromegaly, no JVD Heart: +S1/S2, regular, no m/r/g Lungs: equal air entry bilaterally, no rales/rhonchi/wheezes Abd: +BS, soft, ND, tender in epigastric region and RUQ with voluntary guarding, no masses/organomegaly/ascites Ext: warm, 2+ pulses in UE/LE bilaterally, no clubbing/cyanosis or edema Neuro: nonfocal, patient AA&O x 4, speech intact, no facial droop, moving all extremities on command with equal strength 5/5 Principal Diagnosis Choledocholithiasis Discharge Exam Constitutional: well developed, well nourished, cooperative and comfortable; no acute distress Eyes: + anicteric sclerae and PERRL ENMT: mmm Neck: normal visual inspection and trachea midline Respiratory: normal respiratory effort, lungs clear to auscultation Cardiovascular: RRR, no murmur, no edema Gastrointestinal (Abdomen): +BS, soft, incisions look good, no drain age. appropriately tender to palpation, no guarding/rigidity Musculoskeletal: moves all extremities, ambulating in room Skin: no rashes, warm and dry no jaundice Neurologic: PERRL, EOMI, accommodation nl, no face palsy, no dysarthria Psychiatric: Orientation: alert and oriented x 3 Lymphatic: no cervical or axillary lymphadenopathy Discharge Data Allergies Allergy/AdvReac Type Severity Reaction Status Date / Time lisinopril AdvReac Intermediate Cough Verified 03/24/21 00:14 Consultations 03/23/21 23:14 ED Decision to Admit Stat 03/24/21 00:05 Consult Gastroenterology Routine Consult General Surgery Routine 03/24/21 09:56 Consult General Surgery Routine Procedures Performed Operation Date: 03/24/21 12:25 Actual Procedures p Endoscopic Retrograde Cholangiopancreato - Maykel Maxwell DO Operation Date: 03/25/21 12:40 Actual Procedures p Laparoscopic Cholecystectomy - Yovani Ignacio MD Ordered Studies Abdomen/Pelvis CT 03/23/21 22:32 CT abd pelvis IV con only CLINICAL HISTORY: abd pain n/v COMPARISON STUDY: 01/22/2019 CT DOSE: 361.46 mGy.cm TECHNIQUE: Standard CT of the Abdomen and Pelvis was performed with IV contrast. A dose lowering technique was utilized adhering to the principles of ALARA. Contrast Volume: Optiray 320, 94 ml. The patient did not receive oral c ontrast. FINDINGS: Lung base: The lung bases are clear. There is a large calcified granuloma at the right lung base. Abdominal cavity: There is no evidence for abdominal mass, adenopathy or asci cj. Liver: There is homogeneous attenuation of the liver parenchyma. There is no evidence for enhancing mass lesion. However, there has been interval development of marked intrahepatic biliary duct dilatation.. Calcified granuloma are again seen. Spleen: There is homogeneous attenuation of the splenic parenchyma. There is no enhancing mass lesion. Calcified granuloma are again seen. Pancreas: There is homogeneous attenuation of the pancreatic parenchyma. There is no evidence for mass lesion or peripancreatic fluid collection. Gall Bladder: The gallbladder is distended with thickening of the gallbladder wall. This also cholelithiasis present. The common bile duct is dilated measuring up to 11 mm. The major differential diagnosis is choledocholithiasis versus a mass at the ampulla. Follow-up MRCP is recommended. Adrenal glands: The adrenal glands are normal in size and attenuation. There is no evidence for enhancing mass lesion. Kidneys: There is homogeneous attenuation of the renal parenchyma bilaterally. There is no evidence for renal calculus or hydronephrosis. There is no evidence for enhancing mass. Left renal cyst is again seen. Bowel: The bowel loops are normally placed within the abdomen and pelvis without evidence for dilatation or obstruction. There is no evidence for mass lesion. There are no inflammatory changes present. There is no evidence for free air. Bladder: The bladder is within normal limits with no evidence for focal mass, calculus or diverticulum. : There is no evidence for pelvic mass or adenopathy. There is no evidence for pelvic ascites. There is a calcified fibroid uterus. Vasculature: There is no evidence for aneurysmal dilatation of the abdominal aorta. Atherosclerotic calcification is present. Osseous structures: There is no acute osseous pathology. Degenerative changes are seen throughout the spine. IMPRESSION: 1. Interval development of dilatation of the common bile duct and intrahepatic biliary duct radicles. The major differential diagnosis is that of choledocholithiasis versus a mass at the head of the pancreas/ampulla. Follow-up MRCP is recommended. 2. Distention of the gallbladder with thickening of the gallbladder wall and cholelithiasis. 3. Additional nonacute findings are delineated above. ACT 112: Positive. There are findings on this exam that require communication between the performing entity and the patient following Patient Test Result Information Act ([place] Act 112) guidelines. Electronically signed by: Ryan Crenshaw M.D. 03/23/2021 11:10 PM Cholangiopancreatography MRI 03/24/21 00:05 MR MRCP HISTORY: 75 years-old Female choledocholithiasis acute generalized abdominal pain with nausea COMPARISON: CT abdomen and pelvis 03/23/2021, 01/22/2019. TECHNIQUE: MRCP was obtained without the use of IV contrast utilizing institutional protocol. FINDINGS: Motion degraded exam. Cardiomegaly. 3.7 cm left renal cyst. There is trace nonspecific perinephric stranding. No abdominal aortic aneurysm or adenopathy. Unremarkable IVC. No bowel obstruction or bowel wall thickening identified. There is moderate intrahepatic and extrahepatic biliary ductal dilation with the common bile duct measuring up to 11 mm transversely. The gallbladder is distended measuring up to 12 cm in length with layering cholelithiasis within the fundus. Questioned gallbladder wall thickening. No ascites. There is abrupt luminal narrowing of the distal common bile duct just proximal to the ampulla with suggested filling defects seen on image 12 of series 3. Normal caliber of the pancreatic duct. Moderate pancreatic atrophy. IMPRESSION: 1. Motion degraded exam. 2. Distended gallbladder with cholelithiasis and equivocal gallbladder wall thickening. Findings should be correlated with clinical presentation to exclude acute cholecystitis. 3. Moderate intrahepatic and extrahepatic biliary ductal dilation with questioned choledocholithiasis of the distal common bile duct, suboptimally evaluated secondary to the aforementioned motion artifact. These findings could be correlated with ERCP. ACT 112: Negative or not required by law. The above report was generated using voice recognition software. It may contain grammatical, syntax or spelling errors. Electronically signed by: Blade Mayer M.D. 03/24/2021 7:54 AM Chest X-Ray 03/24/21 11:25 XR chest 1V portable CLINICAL HISTORY: pre-op. Evaluate cardiopulmonary status COMPARISON STUDY: 05/24/2015 TECHNIQUE: 1 view of the chest FINDINGS: Single frontal view of the chest demonstrates the cardiomediastinal silhouette to be within normal limits. The lungs are clear of alveolar opacities. There is no evidence for pleural effusion. There is no evidence for vascular congestion. There is no acute osseous pathology. IMPRESSION: No acute cardiopulmonary disease. ACT 112: Negative or not required by law. Electronically signed by: Ryan Crenshaw M.D. 03/24/2021 12:01 PM Endo Retro Cholangiopancreatogram 03/24/21 15:00 FL ERCP biliary ductal CLINICAL HISTORY: IN OR. Suspected choledocholithiasis COMPARISON STUDY: MRCP FLUOROSCOPY TIME: 172 seconds. FLUOROSCOPIC IMAGES: 8 images FINDINGS: Fluoroscopic spot images were obtained status post cannulation of the common bile duct and placement of a biliary stent. With contrast injection, there are intraluminal filling defects present which are characteristic of choledocholithiasis. IMPRESSION: Status post placement of a biliary stent. Please see intraoperative note for further evaluation. ACT 112: Negative or not required by law. Electronically signed by: Ryan Crenshaw M.D. 03/24/2021 4:30 PM Hospital Course (1) Choledocholithiasis with acute cholecystitis with obstruction: 75yo female with history of HTN, HLP, DM and Ulcerative colitis presenting with epigastric/RUQ abdominal pain ongoing x 1 day. Previously with known cholelithiasis, seen by Dr Alexis in past. CT AP on admission with intrahepatic biliary ductal dilatation concerning for choledocholithiasis vs pancreatic head mass. GI consulted MRCP 03/24, followed by ERCP by Dr Maxwell with findings consistent with choledocholithiasis and cholangitis * stone removal and biliary sphincterotomy and balloon extraction done, two biliary stents placed into CBD. One proph pancreatic stent placed and indomethacin given to decrease risk post-ERCP pancreatitis * Avoid ASA/NSAIDs x 5 days * Will need abx x 2 weeks, transition to Augmentin to complete course 14 days * Repeat ERCP 6 weeks for stent removal General surgery consulted s/p raymond moreno with Dr Ignacio Pain control/antiemetics/IVF provided Diet advanced as tolerated, passing gas, less pain No further temp since low grade on admission Blood cultures remained NGTD LFTs trending down, WBC wnl Follow up with GI/General surgery after discharge for continued care (2) Abdominal pain: improved from days prior, tolerated advancement of diet Pain controlled with oral agents prior to d/c, incisional pain as expected Avoid NSAIDs x 5 days for above -- tylenol/oxycodone for breakthrough at discharge (3) Ulcerative colitis: Chronic Balsalazide not formulary while inpatient and to resume upon discharge No bloody diarrhea/increased issues with chronc disease F/u Dr case as above --> in patient with UC if concerns for PSC/PBC, consider biopsy in future (per GI not appearing as such on ERCP and would defer to regular GI provider for possible need for biopsy in future at their discretion) (4) Hypertension: elevations 2nd to pain/holding home meds (for dehydration while on IVF, continued metoprolol) Resume home meds at discharge -- losartan/spironolactone (5) Hyperlipemia: Continue Atorvastatin (6) Hypothyroidism: Chronic -Continued Synthroid 75mcg po daily (7) Diabetes type 2, controlled: Chronic. Elevated blood sugar on admit at 214. Fairly well controlled with ObyN4G=7.5 on 09/18/20, repeat improved to 7.1 ISS while inpatient, lantus 3u BID as insulin naive Home meds resumed at discharge (8) Depression: Bupropion 150mg po BID (9) Esophageal reflux: Continued Protonix 40mg po daily DVT Proph SCDs, added Heparin post op D/c'd on course abx x 14 days. Repeat ERCP 6 wks for stent removal -- [facility] to contact to schedule Follow up surgery in 2 weeks, regular GI routine Total Time Total Time Spent Total Time Spent (In Minutes): 65 Discharge Plan Discharge Items Patient Disposition: Home - Self-Care Reason For Visit: ABDOMINAL PAIN, ABNORMAL LFTs Discharge Diagnosis: Acute Cholecystitis, Choledocholithiasis Goals: You have been hospitalized for an urgent problem which required surgery. During your stay at [facility], we have made an effort to correct the problem that brought you to the hospital while keeping you as comfortable as possible. Surgery and medications were used to bring your condition under control and your discharge instructions will include directions for any medications you should take after leaving the hospital. Please make sure to follow the advice of your surgeon regarding follow up with the surgeon and with your primary care provider. Activity: As commented below Non-emergency contact: Primary Care Provider, Surgeon and Brass Pourer Call non-emergency contact if: you have any medication questions, your symptoms worsen, your pain is unusual for you and you have a fever Follow-up/Referrals: Alexander Sales DO [Physician] - 04/01/21 2:00 pm () Ryan Cohn III, MD [Primary Care Provider] - 04/07/21 2:00 pm Yovani Ignacio MD [Physician] - 04/09/21 8:00 am (Date & Time 04/09/2021 8:00 AM Provider Yovani Ignacio MD Department General Surgery, [facility] ) Diet: Carb Consistent or DM2 and Heart Healthy Addtl Attending Provider Instructions: You have been hospitalized for abdominal pain and found to have cholangitis/choledocholithiasis. Stones were removes/sphincterotomy performed and stents was placed, which will need a repeat ERCP in 6 weeks for removal. General surgery was consulted and removed the gallbladder. Given the choledocholithiasis, you have been recommended to complete a 14 day course of antibiotics. You have received 3 days while inpatient and have another 11 days with Augmentin to take TWICE daily to complete the course. You will need to have follow up with Dr Ignacio in two weeks as below. You should avoid NSAIDs for the next couple of days to prevent pancreatitis given the stent and can use tylenol and oxycodone as needed for pain. Please note opiates can cause constipation so if this occurs, you should continue bowel regimen at home. Please continue to stay well hydrated, and return to the emergency department with any worsening pain, fever/chills, chest pain, shortness of breath, or for any other symptoms that are concerning for you. Please follow up with your PCP in the next 7-10 days to monitor your progress a nd should follow up with Dr Sales for routine care. It has been a pleasure being a part of the medical team providing for you while you have been in the hospital. Take care! Addtl Packaging Materials Inspector Provider Instructions: Post-Surgical ~Discharge Instructions Activity Recommendations: - lifting limitation: (25 pounds for 4 weeks), - exercise/sex/sports limit: (nonstrenuous for 2 weeks), - driving or machine use limit: (none for 1 week, until pain free and no longer taking narcotic pain medication), - Shower/bathe limit: (may shower beginning tomorrow) Diet: - Resume previous diet SPECIAL CARE INSTRUCTIONS: - May shower on Tuesday. Remove outer dressings and let water run over area and pat dry. - Leave steri strips on for one week and then remove. They may fall off on their own that is okay. - Call the surgeon's office with any questions or concerns - - (ex. temperature higher than 101 degrees F, excessive bleeding or pain). MEDICATIONS: - Resume previous medications unless instructed otherwise by your surgeon. - May take extra strength Tylenol as needed for mild to moderate pain -650 mg Tylenol every 6 hours as needed - Percocet 1 every 6 hours, as needed for moderate to severe pain - Recommend daily [id number] stool softener (Colace) while taking narcotic pain medication to prevent constipation or straining. FOLLOW UP VISIT: - If not already scheduled, please call the office to schedule a two week follow-up appointment. Office number Pending Studies at Discharge: Yes (Gallbladder pathology, will be reviewed at follow up visit) Stand-Alone Forms: My [employer], Opioid Pain Management, Smoking Cessation Medications and DC Order Prescriptions: New oxycodone-acetaminophen 5-325 mg tablet 1 tab PO Q6H PRN (Reason: pain) Qty: 12 RF: 0 amoxicillin-pot clavulanate [Augmentin] 875-125 mg tablet 1 tab PO BID 11 Days Qty: 23 RF: 0 Continued losartan 100 mg tablet 100 mg PO DAILY Qty: 90 RF: 3 metoprolol succinate 50 mg tablet extended release 24 hr 50 mg PO QAM Qty: 90 RF: 3 spironolactone 25 mg tablet 25 mg PO QAM Qty: 90 RF: 3 levothyroxine 75 mcg tablet 75 mcg PO DAILY Qty: 90 RF: 3 metoprolol succinate 25 mg tablet extended release 24 hr 25 mg PO QAM Qty: 90 RF: 3 bupropion HCl 150 mg tablet sustained-release 12 hr 150 mg PO BID Qty: 180 RF: 3 atorvastatin 80 mg tablet 80 mg PO HS Qty: 90 RF: 3 balsalazide 750 mg capsule 1,500 mg PO BID Qty: 360 RF: 1 metformin 500 mg tablet 500 mg PO TID Qty: 270 RF: 3 calcium carbonate 600 mg calcium (1,500 mg) tablet 600 mg PO QDD RF: 0 pantoprazole [Protonix] 40 mg tablet,delayed release (DR/EC) 40 mg PO DAILY Qty: 90 RF: 3 vitamin E 400 unit Capsule 400 unit PO QDD RF: 0 potassium gluconate 595 mg (99 mg) Tablet 99 mg PO QDD RF: 0 multivitamin Tablet 1 tab PO DAILY RF: 0 Discharge Orders: Discharge Order (Routine); Ordered 03/27/21 Ordered By: Guillermina Armadno/Other Patient Handouts: Managing Type 2 Diabetes Admission Data Admit Date/Time: 03/24/21 00:05 Attending Provider: Norma Roca Admit Provider: Arlene Ya Primary Care Provider: Ryan Cohn III Other Providers: Arlene Ya ; Alexander Sales ; Bakari Alexis ; Yovani Ignacio Other Interventions: Discharge Summary Assessment (RN) Last Done: 03/27/21 14:44 Supervising Physician Co-Signing Physician Notes PA Supervision Note: I personally saw and examined the patient. I verified all dykes points and agree with DANIEL Gray with the following exceptions and/or additions: S-Feeling better, some soreness in abdomen, jose po, ready to go home. Had a BM. O- Vitals reviewed Gen: [AAOx3, NAD] HEENT: [anicteric sclerae, EOMI] CV: [RRR no mgr nl S1S2] Pulm: [CTAB no wcr] Abd: [+BS, incisions intact, soft, +TTP over incisions ites without guarding or rebound] Ext: [no edema] Skin: [no rashes, warm/dry] Neuro: [full strength throughout] Labs reviewed A/P-75 yo female here with acute choledocholithiasis and ascending cholangitis now s/p ERCP with stent placement and stone extraction, s/p lap josh doing well dc to home on po abx, pain meds f/u with Surgery and with GI for stent removal in 6 weeks
== END 2021-03-27 16:22 | disposition home or self-care (01) | DRG 418 ==
LOC: ED 21:41 → SUATTDRO 03-24 00:05 → EDINP 03-24 00:05 → 2N 03-24 02:18